=== PATIENT | male | born 1955 | race Caucasian/White ===

== ENCOUNTER 2017-10-24 14:52 | Emergency (ER) | payer MEDICARE, MEDICAID, SELFPAY ==
[2017-10-24 14:53] VITALS: BP 141/84; PULSE 106; RESP 33; TEMP 36.8; O2SAT 91; BMI 38.6
[2017-10-24 14:55] VITALS: BP 141/84; PULSE 105; RESP 26; O2SAT 92; O2SAT 93
--- NOTE | 2017-10-24 15:08 | EKG12_ITS ---
Test Reason : SOB Blood Pressure : / mmHG Vent. Rate : 100 BPM Atrial Rate : 100 BPM P-R Int : 148 ms QRS Dur : 098 ms QT Int : 346 ms P-R-T Axes : 063 079 054 degrees QTc Int : 446 ms Normal sinus rhythm Low voltage QRS (limb leads) Poor R wave progression Confirmed by CHARO VAZQUEZ, JOHANA ([id number]), mapping editor KALEB SWEENEY ([id number] on 10/26/2017 1:16:46 PM Referred By: JOEY Confirmed By:JOHANA MANCILLA MD
--- NOTE | 2017-10-24 15:08 | CT_ITS ---
STUDY: CT BRAIN WITHOUT CONTRAST REASON FOR EXAM: Male, 61 years old. Dizziness and weakness. Shortness of breath. RADIATION DOSAGE (If Supplied By Facility): CTDIvol = ( 44.99 ) mGy, DLP = ( 762.36 ) mGycm TECHNIQUE: Transaxial CT imaging of the brain was performed without administration of intravenous contrast material. Individualized dose optimization techniques were used for this CT. COMPARISON: March 08, 2016. FINDINGS: Normal soft tissue structures. Normal calvarium. Normal size ventricles and extra-axial spaces for the patient's age. Normal white matter tracts of the cerebral hemispheres. Normal basal ganglia and thalami. Normal brainstem. Normal cerebellum. There is no intracranial hemorrhage. There are no findings of an acute ischemic infarction. Normal visualized paranasal sinuses. CT/Brain/Head without Contrast IMPRESSION: Normal unenhanced CT scan of the brain. Electronically Signed: Pola Bullard MD at 16:17 EST , Service support ,
[2017-10-24 15:15] VITALS: PULSE 102; RESP 22; O2SAT 93
[2017-10-24] MEDS: Ipratropium/Albuterol Sulfate 3 ML AMPUL.NEB INHALATION (15:15)
--- NOTE | 2017-10-24 15:16 | ED.DCSUM_ITS ---
- ER Visit Summary Date of Service: 10/24/17 Chief Complaint: [Shortness of breath, dizziness, generalized weakness] History of Present Illness: The patient is a 61 M [presents to the emergency department with multiple complaints. Patient states that progressively over the last 2 weeks he has been getting weaker and weaker. Patient feels lightheaded with standing and walking. Patient also complains of dyspnea. Patient does use 4 L home O2 at all times. Patient has a history of COPD. Patient denies recent travel or surgery. Patient denies any chest pain. He denies any focal weakness. Patient denies any difficulty with speech or vision. He denies vertiginous symptoms. Patient states that he just feels off balance. Patient has noticed increased swelling in his legs. He has no history of CHF. Patient has no kidney problems. Patient does have a history of chronic back pain. She denies fever. He denies cough.] Physical Examination: HEENT-PERRLA, EOMI. Cranial nerves II through XII grossly intact. TMs clear. Mucous membranes moist. No adenopathy. Cardiovascular-regular rate and rhythm without murmur or ectopy Lungs-aeration bilaterally. Patient is tachypneic. No accessory muscle use or retraction noted. Patient has diminished breath sounds bilaterally with some faint expiratory wheezes noted. Abdomen-normoactive bowel sounds, soft, nontender, no rebound or rigidity, no peritoneal signs. Neuro [id number] and heel schmitz testing within normal limits, negative Romberg, no facial droop, normal strength in the upper and lower extremities. Extremities-intact ?4, normal range of motion, normal pulses, atraumatic] patient has +2 edema both lower extremities. Test Results: [TG obtained showed a sinus rhythm with a ventricular rate of 100 bpm with no acute ST segment changes noted.] CBC with differential showed a white count of 8.9, hemoglobin 15, hematocrit 47, platelets 211. Chemistries unremarkable. LFTs were normal. Urinalysis was normal. Troponin was less than 0.02. BNP was 17.5, d-dimer was normal at 0.30. Chest x-ray showed small left pleural effusion and some left basilar atelectasis cannot rule out an early infiltrate. CT scan of the brain without contrast was normal. Emergency Department Course and Treatment: [Patient initially was given a DuoNeb aerosol and a Medrol IV. Patient did feel somewhat improved with that. At this point he tells me his main concern was this generalized weakness and feeling off balance. Patient denies vertiginous symptoms and states that he does not have to hold onto furniture or laughlin when he is walking and thinks that it is more generalized weakness than off balance type feeling. I offered to admit the patient for further workup and evaluation of his symptomatology is at this point it is unclear the etiology of his generalized weakness. Patient does not want to be admitted and would prefer to go home. Patient also tells me he had flulike symptoms several days ago and was treated with Zithromax which she finished on the 18th of the month.] Patient tells me that his breathing is at baseline and not worse than usual. Patient tells me that his cough is been resolved and he has had no fever. Treatment Plan: [Follow-up with primary care physician in 3-5 days.] Disposition: [Discharged to home in stable condition.] Impression: [Generalized weakness-etiology uncertain Dyspnea] secondary to COPD-at baseline This note was generated with Likeeds dictation software. It may contain incorrect words, spelling, and punctuation that were not noted in review of the chart prior to signing ED Disposition - Plan for ED Patient: Chief Complaint: Shortness of Breath Referrals: Srinivasa Henao MD [Primary Care Provider] -
--- NOTE | 2017-10-24 15:24 | RAD_ITS ---
STUDY: X-RAY CHEST REASON FOR EXAM: Male, 61 years old. Shortness of breath. Dyspnea. TECHNIQUE: Single AP portable view of the chest. COMPARISON: Comparison is made with prior study dated January 30, 2014. FINDINGS: EKG electrode leads are seen. Increased interstitial markings worse at the lung bases. Small left pleural effusion with underlying infiltration and/or atelectasis. Normal size heart. Normal mediastinum and emmanuel. Normal visualized pulmonary arteries. There is atherosclerotic calcification of the aortic arch with tortuosity. Normal visualized thoracic spine. Normal visualized ribs, clavicles, and shoulders. There is no demonstrated abnormality of the visualized soft tissue structures of the upper abdomen. RAD/Chest 1 View (Portable) IMPRESSION: Findings suggestive of interstitial scarring with small left pleural effusion with underlying left basilar atelectasis and/or early infiltrate. Electronically Signed: True Miranda MD at 15:46 EST Tel [phone], Service support ,
[2017-10-24 15:34] LABS: Basophil# 0.01 X10^3/uL; Basophil% 0.1 % (0-1); Hematocrit 47.3 % (40-54); Hemoglobin 15.4 g/dl (13.0-16.5); Lymphocyte % 9.6 % (19-41); Mean Corp Hgb Conc 32.6 g/gl (32-36); Mean Corpuscular Hgb 31.2 pg (27.0-32.0); Mean Corpuscular Volume 95.9 fL (80-94); Mean Platelet Vol. 9.5 fl (6.2-12.0); Monocyte# 0.51 X10^3/uL; Monocyte% 6.1 % (0-10); Neutrophil # 7.04 X10^3/uL (2.7-7.7); Neutrophil % 84.1 % (47-70); POSITIVE COUNT NO; POSITIVE DIFFERENTIAL NO; POSITIVE MORPHOLOGY NO; Platelet Count 211 K/mm3 (150-450); RBC Distribution Width CV 13.7 % (11.6-14.6); RBC Distribution Width SD 48.6 fl (35.1-43.9); Red Blood Count 4.93 M/mm3 (4.6-6.2); White Blood Count 8.4 K/mm3 (4.4-11.0)
--- NOTE | 2017-10-24 15:34 | CPS ---
Pt states that he wears 4L home O2
[2017-10-24 16:09] LABS: ALB/GLOB Ratio 0.8 RATIO (0.9-2.4); AST(SGOT) 22 U/L (15-37); Alanine Aminotransfer ALT/SGPT 50 U/L (16-61); Albumin, Serum 3.1 g/dL (3.2-5.0); Alkaline Phosphatase 82 U/L (45-117); Anion Gap 4 (5-15); BUN 16 mg/dL (7-18); BUN/Creat Ratio 21.8 RATIO (10-20); Calcium,Total 8.2 mg/dL (8.5-10.1); Chloride 99 mmol/L (98-107); Creatinine, Serum 0.74 mg/dL (0.70-1.30); EST Glomerular Filtration Rate 115 mL/min (>60); Est Glom Filt Rate - Afr Amer 139 mL/min (>60); Estimated Creatinine Clearance 88.89 ml/min; Globulin 3.9 g/dL (2.2-4.2); Glucose 130 mg/dL (74-106); Potassium 4.3 mmol/L (3.5-5.1); Sodium Level 139 mmol/L (136-145)
[2017-10-24 16:14] LABS: BNP,B-Type NATRIURETIC PEPTIDE 17.5 pg/mL (0-100)
--- NOTE | 2017-10-24 16:19 | NURSING ---
NO LW OR POA
[2017-10-24] MEDS: MethylPREDNISolone 125 MG/2 ML Vial IV (16:26)
[2017-10-24 16:27] VITALS: BP 133/87; BP 134/84; BP 136/92; PULSE 100; PULSE 101; PULSE 102; PULSE 106; RESP 20; O2SAT 93
[2017-10-24 16:38] LABS: Bacteria 0 SEEN /hpf (None Seen); Mucous, Urine 0 SEEN /hpf (<or=2+); White Blood Cells 0 SEEN /hpf (0-5)
[2017-10-24 16:53] LABS: Color, Urine Yellow (Yellow); Glucose, Dipstick Normal (Normal); Ketone-Dipstick Negative (Negative); Leukocyte Esterase-Dipstick Negative /ul (Negative); Nitrite-Dipstick Negative (Negative); Occult Blood-Urine Negative /ul (Negative); Protein-Dipstick Negative (Negative); Urine Bilirubin Dipstick Negative (Negative); Urine Clarity Clear (Clear); Urine Urobilinogen Normal (Normal)
[2017-10-24 17:02] LABS: Red Blood Cells-Urine 0-5 SEEN /hpf (0-5); Squamous Epithelial Cells - UA 0-5 SEEN /hpf (0-5)
--- NOTE | 2017-10-24 17:14 | ED.DEP ---
ED Disposition - Plan for ED Patient: Chief Complaint: Shortness of Breath Instructions: ED Weakness UKO, ED Dyspnea Shortness of Breath Referrals: Srinivasa Henao MD [Primary Care Provider] - 3-5 Days
[2017-10-24 17:38] VITALS: BP 128/74; PULSE 80; RESP 16; O2SAT 96
== END 2017-10-24 17:40 | disposition home or self-care (01) ==
PROVIDERS: Emergency Provider Emergency Medicine; Family Provider Internal Medicine; PCP Internal Medicine
DX: M62.81 Muscle weakness (generalized) (principal); J44.9 Chronic obstructive pulmonary disease, unspecified; R06.00 Dyspnea, unspecified; Z99.81 Dependence on supplemental oxygen; M54.9 Dorsalgia, unspecified; G89.29 Other chronic pain; Z72.0 Tobacco use; Z79.82 Long term (current) use of aspirin; Z79.51 Long term (current) use of inhaled steroids; Z79.891 Long term (current) use of opiate analgesic; Z79.899 Other long term (current) drug therapy
CPT/HCPCS: 70450; 71045; 80053; 81001; 83880; 84484; 85025; 85379; 93005; 94640; 96374; 99285; A4216

== ENCOUNTER 2017-11-04 14:12 | Emergency (ER) | payer MEDICARE, MEDICAID, SELFPAY ==
[2017-11-04 14:13] VITALS: BP 138/93; PULSE 110; RESP 18; TEMP 36.4; O2SAT 92; BMI 37.8
[2017-11-04] MEDS: Ipratropium/Albuterol Sulfate 3 ML AMPUL.NEB INHALATION (14:55)
[2017-11-04 14:56] VITALS: PULSE 114; RESP 22
[2017-11-04 14:59] LABS: Absolute Lymphocyte Count 1.67 X10^3/ul (0.83-4.51); Absolute Neutrophil Count 7.4 X10^3/uL (2.0-7.7); Basophil# 0.03 X10^3/uL; Basophil% 0.3 % (0-1); Eosinophil# 0.11 X10^3/uL; Eosinophils% 1.1 % (0-5); Hematocrit 44.4 % (40-54); Hemoglobin 14.5 g/dl (13.0-16.5); Lymphocyte # 1.67 X10^3/ul (4.0); Lymphocyte % 16.2 % (19-41); Mean Corp Hgb Conc 32.7 g/gl (32-36); Mean Corpuscular Hgb 31.4 pg (27.0-32.0); Mean Corpuscular Volume 96.1 fL (80-94); Mean Platelet Vol. 9.4 fl (6.2-12.0); Monocyte# 1.07 X10^3/uL; Monocyte% 10.4 % (0-10); Neutrophil # 7.43 X10^3/uL (2.7-7.7); Neutrophil % 71.9 % (47-70); POSITIVE COUNT NO; POSITIVE DIFFERENTIAL NO; POSITIVE MORPHOLOGY NO; Platelet Count 202 K/mm3 (150-450); RBC Distribution Width CV 13.9 % (11.6-14.6); RBC Distribution Width SD 47.8 fl (35.1-43.9); Red Blood Count 4.62 M/mm3 (4.6-6.2); White Blood Count 10.3 K/mm3 (4.4-11.0)
[2017-11-04 15:11] LABS: Anion Gap 3 (5-15); BUN 11 mg/dL (7-18); BUN/Creat Ratio 16.3 RATIO (10-20); Calcium,Total 8.2 mg/dL (8.5-10.1); Chloride 102 mmol/L (98-107); Creatinine, Serum 0.67 mg/dL (0.70-1.30); EST Glomerular Filtration Rate 127 mL/min (>60); Est Glom Filt Rate - Afr Amer 154 mL/min (>60); Estimated Creatinine Clearance 98.18 ml/min; Glucose 111 mg/dL (74-106); Potassium 4.1 mmol/L (3.5-5.1); Sodium Level 141 mmol/L (136-145)
[2017-11-04 15:23] LABS: Bacteria 0 SEEN /hpf (None Seen); Mucous, Urine 0 SEEN /hpf (<or=2+); Red Blood Cells-Urine 0 SEEN /hpf (0-5); Squamous Epithelial Cells - UA 0 SEEN /hpf (0-5); White Blood Cells 0 SEEN /hpf (0-5)
[2017-11-04 15:30] LABS: Color, Urine Yellow (Yellow); Glucose, Dipstick Normal (Normal); Ketone-Dipstick Negative (Negative); Leukocyte Esterase-Dipstick 25 /ul (Negative); Nitrite-Dipstick Negative (Negative); Occult Blood-Urine Negative /ul (Negative); Protein-Dipstick Negative (Negative); Urine Bilirubin Dipstick Negative (Negative); Urine Clarity Clear (Clear); Urine Urobilinogen Normal (Normal)
--- NOTE | 2017-11-04 16:20 | ED.VISSUMM ---
- ER Visit Summary Date of Service: 11/04/17 Chief Complaint: Difficulty urinating History of Present Illness: The patient is a [address] Henao. He reports that for the past 4 days he feels as though he has to urinate and then just trickles. Reports that he has a little bit of dysuria. He does have a history of BPH, but has never had anything like this. Physical Examination: Vitals: Stable. Afebrile. General: Well-nourished and well-developed. Head: Normocephalic atraumatic. Neck: Supple, no lymphadenopathy. No JVD. Nontender. Cardiovascular: Regular rate and rhythm. No murmurs. Respiratory: No respiratory distress. The decreased air movement. Abdominal: Soft, mild suprapubic tenderness to palpation, nondistended, normal bowel sounds. No guarding, rebound, or peritoneal signs. Back: Nontender. Extremities: Nontender, no edema. Skin: Normal color, no rash. Neurologic: Alert and oriented ?3. Cranial nerves II through XII are intact. Normal strength and sensation. Psych: Normal affect. Test Results: CBC is remarkable for segment neutrophils of 72 and lymphocytes of 16. Chem-7 is more for CO2 36, glucose 111, calcium 8.2, creatinine 0.67. UA is normal. Bladder scan shows 39 cc of urine. Emergency Department Course and Treatment: I had a prolonged discussion the patient about treatment options. We also discussed possibility of a false negative bladder scan. He opted to have a Zuleta catheter placed. 100 cc of urine returned. The Zuleta catheter was removed. Treatment Plan: Patient will be discharged instructions follow-up with Dr. Reyes in 3-5 days for further evaluation. Return to the emergency department for any worsening symptoms. Disposition: To home in improved and stable condition. Impression: 1. Urethritis. This note was generated with Free[employer]Alert[employer] dictation software. It may contain incorrect words, spelling, and punctuation that were not noted in review of the chart prior to signing ED Disposition - Plan for ED Patient: Chief Complaint: Complaint Instructions: ED Dysuria Uncertain Cause Referrals: Tarik Reyes MD [STAFF PHYSICIAN] - 3-5 Days
[2017-11-04 16:26] VITALS: BP 132/90; PULSE 95; RESP 22; O2SAT 93
[2017-11-04 17:01] VITALS: BP 132/90; PULSE 95; RESP 22; O2SAT 93
== END 2017-11-04 17:07 | disposition home or self-care (01) ==
LOC: ED 15:29
PROVIDERS: Emergency Provider Emergency Medicine; Family Provider Internal Medicine; PCP Internal Medicine
DX: N34.2 Other urethritis (principal); J44.9 Chronic obstructive pulmonary disease, unspecified; Z72.0 Tobacco use
CPT/HCPCS: 51702; 80048; 81001; 85025; 94640; 99284; A4216

== ENCOUNTER → 2017-12-31 16:01 | Outpatient (CLI) | payer MEDICARE, MEDICAID, SELFPAY | PROVIDERS: Family Provider Internal Medicine; PCP Internal Medicine; Visit Provider Otolaryngology Otolaryngology/Facial Plastic Surgery | DX: J32.9 Chronic sinusitis, unspecified (principal) | CPT/HCPCS: 87070; 87205 ==

== ENCOUNTER 2018-05-04 21:17 | Inpatient (IN) | payer MEDICARE, MEDICAID, SELFPAY ==
[2018-05-04 21:19] VITALS: BP 121/77; PULSE 105; PULSE 107; RESP 21; RESP 25; TEMP 38.1; O2SAT 90; O2SAT 91; BMI 40.6
[2018-05-04 21:25] VITALS: O2SAT 92
[2018-05-04 21:57] VITALS: PULSE 112; RESP 26; O2SAT 92
[2018-05-04] MEDS: Albuterol 2.5 MG/3 ML VIAL.NEB. INHALATION ×3 (21:57)
[2018-05-04] MEDS: MethylPREDNISolone 125 MG/2 ML Vial IV (22:07)
[2018-05-04] MEDS: 0.9% Normal Saline 1,000 ML 150 ML IV (22:07)
[2018-05-04] MEDS: levoFLOXacin IV 750 MG/150 ML BAG 100 MG IV (22:08)
[2018-05-04 22:15] LABS: Absolute Lymphocyte Count 1.58 X10^3/ul (0.83-4.51); Absolute Neutrophil Count 16.1 X10^3/uL (2.0-7.7); Basophil# 0.03 X10^3/uL; Basophil% 0.2 % (0-1); Eosinophil# 0.04 X10^3/uL; Eosinophils% 0.2 % (0-5); Hematocrit 46.3 % (40-54); Hemoglobin 15.2 g/dl (13.0-16.5); Lymphocyte # 1.58 X10^3/ul (4.0); Lymphocyte % 8.1 % (19-41); Mean Corp Hgb Conc 32.8 g/gl (32-36); Mean Corpuscular Hgb 31.1 pg (27.0-32.0); Mean Corpuscular Volume 94.9 fL (80-94); Mean Platelet Vol. 9.4 fl (6.2-12.0); Monocyte# 1.71 X10^3/uL; Monocyte% 8.8 % (0-10); Neutrophil # 16.14 X10^3/uL (2.7-7.7); Neutrophil % 82.6 % (47-70); Platelet Count 204 K/mm3 (150-450); RBC Distribution Width CV 13.9 % (11.6-14.6); RBC Distribution Width SD 48.1 fl (35.1-43.9); Red Blood Count 4.88 M/mm3 (4.6-6.2); White Blood Count 19.5 K/mm3 (4.4-11.0)
[2018-05-04 22:17] LABS: Differential Indicated SCAN CRITERIA MET; POSITIVE COUNT NO; POSITIVE DIFFERENTIAL YES; POSITIVE MORPHOLOGY NO
[2018-05-04 22:29] LABS: ALB/GLOB Ratio 0.9 RATIO (0.9-2.4); AST(SGOT) 15 U/L (15-37); Alanine Aminotransfer ALT/SGPT 23 U/L (16-61); Albumin, Serum 3.6 g/dL (3.2-5.0); Alkaline Phosphatase 73 U/L (45-117); Anion Gap 7 (5-15); BUN 12 mg/dL (7-18); BUN/Creat Ratio 14.9 RATIO (10-20); Calcium,Total 8.9 mg/dL (8.5-10.1); Chloride 101 mmol/L (98-107); EST Glomerular Filtration Rate 104 mL/min (>60); Est Glom Filt Rate - Afr Amer 126 mL/min (>60); Estimated Creatinine Clearance 78.04 ml/min; Globulin 3.9 g/dL (2.2-4.2); Glucose 107 mg/dL (74-106); Potassium 3.9 mmol/L (3.5-5.1); Protein, Total 7.5 g/dL (6.4-8.2); Sodium Level 142 mmol/L (136-145)
[2018-05-04 22:44] LABS: Differential Comment SCANNED; Platelet Estimate ADEQUATE (ADEQ); Reactive Lymphocyte RARE
[2018-05-04 22:48] LABS: Lactic Acid 0.8 mmol/L (0.4-2.0)
[2018-05-04 23:17] VITALS: BP 116/77; PULSE 108; RESP 22; O2SAT 94
--- NOTE | 2018-05-04 23:23 | ED.VISSUMM ---
- ER Visit Summary Date of Service: 05/04/18 Chief Complaint: Fever, increased shortness of breath and cough History of Present Illness: The patient is a 62 M who presents with shortness of breath, fever and cough. He had similar presentation earlier this year was diagnosed with pneumonia. He states he was discharged on oxygen and has required oxygen since. He states he is on 4-5 L of oxygen by nasal cannula. Does have history of obstructive sleep apnea and uses his machine at night. confirms compliance. He denies headache, visual, ocular auditory symptoms. He denies abdominal pain, nausea, vomiting diarrhea. He denies any urologic symptoms. Denies myalgias arthralgias. He complains of fatigue and generalized weakness. Past medical history COPD on oxygen, benign prostatic hypertrophy and chronic pain Physical Examination: Blood pressure 120/77 temperature 100.6 heart rate 123 respirations 25 with an O2 saturation 91% on 5 L. He appears in distress with use of accessory muscles. He has a cushingoid appearance. Eyes are proptotic. Pupils are equal round reactive paradoxic muscle intact. TMs normal. Posterior pharynx without erythema XA. Patient has inspiratory rales and expiratory wheezing with increased x-ray phase. Heart is rapid and regular. Abdomen is prominent with no tenderness. Bowel sounds are present normal. He does have bilateral 2-3+ pitting edema. He states this is been a problem since October. He denies orthopnea or PND. Neuro exam is nonfocal. Test Results: EKG sinus rhythm rate of 101 with an incomplete right bundle branch block and decreased anterior force. Chest x-ray reveals chronic changes with enlarging left pleural effusion and increased interstitial markings on right compared to prior suggestive of pneumonia. White count is 19.5 thousand with 83 segs no bands 8 lymphs. BMP is remarkable CO2 34. He has chronic elevation of CO2. Liver profile normal. Lactate normal. Emergency Department Course and Treatment: To evaluate patient's fever, respiratory distress chest x-ray, EKG and appropriate blood work was obtained. He was treated with albuterol ?3. He administered a DuoNeb 2 hours prior to presentation. He also received 125 mg of Solu-Medrol and 7 mg levofloxacin. Because of concern for severe sepsis blood cultures were obtained. Treatment Plan: Antibiotics, systemic steroids and aerosols for exacerbation COPD and pneumonia. Since patient is tachycardic remains tachypnic and is wheezing throughout will page the hospitalist, Dr. Cinthya Wilson for admission Disposition: PCU Impression: 1. Right lower lobe infiltrate, clinical pneumonia 2. Exacerbation COPD with bronchospasm 3. Sepsis This note was generated with Bringme dictation software. It may contain incorrect words, spelling, and punctuation that were not noted in review of the chart prior to signing ED Disposition - Plan for ED Patient: Chief Complaint: Shortness of Breath Referrals: Srinivasa Henao MD [Primary Care Provider] -
--- NOTE | 2018-05-04 23:30 | PCM.HP.STD ---
Problem List (1) Sepsis Status: Acute Qualifiers: Sepsis type: sepsis due to unspecified organism Qualified Code(s): A41.9 - Sepsis, unspecified organism (2) Acute and chronic respiratory failure with hypoxia Status: Acute (3) COPD exacerbation Status: Acute (4) Pneumonia Status: Acute Qualifiers: Pneumonia type: due to unspecified organism Laterality: right Lung location: lower lobe of lung Qualified Code(s): J18.1 - Lobar pneumonia, unspecified organism (5) KARIN (obstructive sleep apnea) Status: Chronic (6) Morbid obesity due to excess calories Status: Chronic (7) Chronic back pain Status: Chronic Qualifiers: Back pain location: back pain in unspecified location Back pain laterality: unspecified Qualified Code(s): M54.9 - Dorsalgia, unspecified; G89.29 - Other chronic pain (8) Anxiety and depression Status: Chronic (9) Allergic rhinitis Status: Chronic Qualifiers: Allergic rhinitis trigger: unspecified Allergic rhinitis seasonality: unspecified Qualified Code(s): J30.9 - Allergic rhinitis, unspecified History of Present Illness Date of Admission: 05/04/18 Chief Complaint: Shortness of breath, fever The patient is a 62 y/o M w/ PMHc: Chronic COPD w/ Chronic Hypoxic Respiratory Failure (4-5L NC), BPH, Anxiety and Depression, Morbid Obesity, KARIN, Chronic Back Pain who presents to the [facility] ED on 05/04/18 with history of onset fever, chills, increased dyspnea, usage of accessory muscles starting on day of ED presentation with non-productive coughing. He notes following w/ [employer] in [place] who is retiring. He notes he has been tested for KARIN and uses CPAP. He may have possibly been set-up recently for trilogy but not best historian. In the ED work-up included T100.6, heart rate 105, BP 121/77, respiratory rate 25, 91% on 4 L nasal cannula, CBC with W BC 19.5, hemoglobin 15.2, platelet 204 with left shift, BMP remarkable for carbon dioxide 34, glucose 107, lactic acid 0.8, chest x-ray with chronic interstitial changes possibly right lower lobe pneumonia, left pleural thickening or tiny effusion with mild basilar atelectasis. In the ED patient to start Solu-Medrol, Levaquin, albuterol, normal saline. Past Medical History Past Medical History (Chronic Problems): Chronic Problems KARIN (obstructive sleep apnea) (Chronic) Morbid obesity due to excess calories (Chronic) Chronic back pain (Chronic) Anxiety and depression (Chronic) Allergic rhinitis (Chronic) Allergies No Known Allergies Allergy (Verified 05/04/18 21:17) Home Medications: Ambulatory Orders Medication Instructions Recorded Baclofen [Lioresal] 20 mg PO BID 01/30/14 Budesonide/Formoterol 160/4.5 2 puff INHALATION BID 01/30/14 [Symbicort 160/4.5 Mcg Inhaler (SP)] Ipratropium/Albuterol Respimat 1 puff INHALATION 4X/DAY 01/30/14 [Combivent Respimat Inhal [employer]] Lorazepam [Ativan] 0.5 mg PO BID PRN PRN 01/30/14 Oxycodone HCl/Acetaminophen 1 tablet PO 4X/DAY PRN 01/30/14 [Percocet 5/325] Aspirin [Aspirin, Baby] 81 mg PO DAILY@0800 10/24/17 Benzonatate [Tessalon Perle] 100 mg PO 4X/DAY PRN PRN 10/24/17 Citalopram [Celexa] 40 mg PO DAILY 10/24/17 Montelukast [Singulair] 10 mg PO DAILY 10/24/17 Roflumilast [Daliresp] 500 mcg PO DAILY 10/24/17 Tamsulosin HCl [Flomax] 0.4 mg PO BID 10/24/17 Surgical History: - - Vasectomy, right carpal tunnel surgery ?2, umbilical hernia repair ?2. Psychiatric History: Anxiety, Depression Lives: Alone Smoking Status: Current some day smoker - Patient smoked probably 1/2-2 pack per day for several years but over the last several has cut down and only smokes intimately, notes only when stressed and 2-5 cigarettes per day. 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 Drugs: None - *Family History Maternal History Items: Cancer Paternal History Items: Cancer Review of Systems Constitutional: Reports: Chills, Fever, Malaise, Weakness, Fatigue. Denies: Weight Change HEENT: Denies: Head Aches, Sinus Congestion, Sinus Drainage Cardiovascular: Denies: Chest Pain, Palpitations Respiratory: Reports: Cough, Shortness of Breath, Shortness of breath at rest, Shortness of breath upon exertion, Wheezing. Denies: Sputum production Gastrointestinal: Denies: Abdominal Pain, Nausea, Vomiting Genitourinary: Denies: Dysuria Musculoskeletal: Reports: Back Pain. Denies: Joint Pain, Joint Tenderness Skin: Denies: Rash, Wounds Neurological: Denies: Numbness, Tingling, Focal weakness Psychiatric: Reports: Anxiety, Depression. Denies: Homicidal Ideations, Suicidal Ideations Hematologic/ Lymphatic: Denies: Easy Bruising, Easy Bleeding VTE Information - Inpt Only VTE Present on Admission: No VTE Mechan Device Prophylaxis: SCD's VTE Pharm Prophylaxis ordered?: Yes Patient Problems: Active and Suspected Problems Sepsis (Acute) Acute and chronic respiratory failure with hypoxia (Acute) COPD exacerbation (Acute) Pneumonia (Acute) Subjective: Seated upright in the ED chair, increased work of breathing, accessory muscle usage, increased RR evidence still despite treatments. Objective: Physical Examination: General: awake, alert, oriented x 3 and cooperative, seated upright in the ED chair, increased work of breathing, accessory muscle usage, increased RR. Skin: normal color, turgor, no icterus, cyanosis. HEENT: AT/NC, EOMI, PERRLA, MMM, no carotid bruits or JVD noted. Lungs: Severely diffusely diminished BS, > bases, increased work of breathing, accessory muscle usage, increased RR, no rales, ronchi or wheezing. Heart: Tachycardic with regular rhythm; no gallop, rub audible. Abdomen: soft, morbidly obese, NTTP, ND, normal BS, no HSM; however, habitus makes examination difficult Extremities: no cyanosis, clubbing, BL LE ankle to distal schmitz 2-3+ pitting edema, notes chronic. Neurological: patient awake, alert, oriented x 3; cognitive function intact; pupils equally reactive to light and accomodation; cranial nerves II-XII grossly normal, moving all 4 extremities, no focal deficits, strength severely globally decreased secondary to acute presentation. Psychiatric: affect appears normal, no acute evidence of depressive or anxiety feelings. - Physical Exam Vital Signs Temp Pulse Resp BP Pulse Ox 100.6 F H 112 H 26 H 121/77 H 92 05/04/18 21:19 05/04/18 21:57 05/04/18 21:57 05/04/18 21:19 05/04/18 21:57 Oxygen Flow Rate (L/min) 4 Oxygen Delivery Method Nasal Cannula Weight: 229 lb 4.492 oz Body Mass Index (BMI) 40.6 Laboratory Tests Past 24 Hrs 05/04/18 05/04/18 05/04/18 21:58 21:58 21:58 WBC 19.5 H RBC 4.88 Hgb 15.2 Hct 46.3 MCV 94.9 H MCH 31.1 MCHC 32.8 RDW 13.9 RDW Differential 48.1 H Plt Count 204 MPV 9.4 Immature Gran % (Auto) 0.100 Neut % (Auto) 82.6 H Lymph % (Auto) 8.1 L [place] % (Auto) 8.8 Eos % (Auto) 0.2 Baso % (Auto) 0.2 Absolute Neuts (auto) 16.1 H Absolute Lymphs (auto) 1.58 Total Counted Not Reportable Differential Comment SCANNED Diff Path Review May foll Reactive Lymphocytes RARE Platelet Estimate ADEQUATE Sodium 142 Potassium 3.9 Chloride 101 Carbon Dioxide 34.0 H Anion Gap 7 BUN 12 Creatinine 0.80 Estim Creat Clear Calc 78.04 Est GFR (MDRD) Af Amer 126 Est GFR (MDRD) Non-Af 104 BUN/Creatinine Ratio 14.9 Glucose 107 H Lactic Acid 0.8 Calcium 8.9 Total Bilirubin 0.60 AST 15 ALT 23 Alkaline Phosphatase 73 Total Protein 7.5 Albumin 3.6 Globulin 3.9 Albumin/Globulin Ratio 0.9 Assessment/Plan All Active Problems Sepsis (Acute) Acute and chronic respiratory failure with hypoxia (Acute) COPD exacerbation (Acute) Pneumonia (Acute) The patient is a 62 y/o M w/ PMHc: Chronic COPD w/ Chronic Hypoxic Respiratory Failure (4-5L NC), BPH, Anxiety and Depression, Morbid Obesity, KARIN, Chronic Back Pain who presents to the [facility] ED on 05/04/18 with history of onset fever, chills, increased dyspnea, usage of accessory muscles starting on day of ED presentation with non-productive coughing. (1) Acute Sepsis secondary to Acute Hypoxic Respiratory Failure on Chronic secondary to Acute on Chronic COPD Exacerbation and Pneumonia: Increased work of breathing, accessory muscle usage, increased RR. ABG requested. ED work-up included T100.6, heart rate 105, BP 121/77, respiratory rate 25, 91% on 4 L nasal cannula, CBC with W BC 19.5, hemoglobin 15.2, platelet 204 with left shift, BMP remarkable for carbon dioxide 34, glucose 107, lactic acid 0.8, chest x-ray with chronic interstitial changes possibly right lower lobe pneumonia, left pleural thickening or tiny effusion with mild basilar atelectasis. Will admit to PCU, maintain on oxygen with wean as tolerated to home oxygen supplementation, continue ATC duonebs, PRN albuterol, maintain on IV Rocephin and Azithromycin, maintain on solumedrol, HOB, IS parameters w/ pending sputum cultures and urine antigens as well as respiratory viral panel. Bld cx x 2 obtained in the ED. (2) Chronic Back Pain: Encourage frequent position changes, continue home baclofen and percocet regimen. (3) Anxiety and Depression: Continue home celexa and ativan regimen. (4) Morbid Obesity: Weight loss and lifestyle changes encouraged, nutrition consulted. (5) Allergic Rhinitis: Continue home Singulair regimen. (6) KARIN: CPAP q HS if BIPAP not indicated with pending ABG as noted. (7) BPH: Continue home flomax regimen. (8) BL LE Chronic Edema: Notes chronic, does improve mildly with elevation and in AM following rest in bed. Place SNUG starr wraps. (9) DVT Prophylaxis: SCDs, lovenox. Code Visit Inpatient E&M: [id number] Init Hosp L3
--- NOTE | 2018-05-04 23:59 | NURSING ---
Called [facility] ED charge nurseshayla to send patient to the floor.
[2018-05-05] VITALS (26 sets, daily range): BP systolic 113–140; BP diastolic 63–84; PULSE 62–108; RESP 12–26; TEMP 36.8–36.9; O2SAT 90–95; BMI 40.2; BMI 40.3
--- NOTE | 2018-05-05 00:10 | CPS ---
ABG DRAWN PER DR SHEN REQUEST. RESULTS CALLED TO HER. VERBAL ORDER RECEIVED TO PLACE PT ON BIPAP FOR THE NIGHT. OKAY TO TITRATE SETTINGS NEEDED AND TO MAINTAIN SPO2 88-92%. PER PT HE USUALLY WEARS CPAP HS WITH 4L BLED IN AND HE ALSO WEARS 4L OXYGEN DURING THE DAY.
[2018-05-05 00:11] LABS: Allen Test POS; Base Excess 6 mmol/L (-2 to +2); Bicarbonate 31.2 mmol/L (22-26); Blood Gas Specimen Type ART; O2 Delivery Device Nasal Can; PO2 55 mmHG (75-100); SITE L Radial; SO2 88 % (95-99); Time Given 10; Total Carbon Dioxide 33 mmol/L; pCO2 50.7 mmHg (35-45)
[2018-05-05] MEDS: 0.9% Normal Saline 1,000 ML 125 ML IV ×2 (00:57→06:23)
[2018-05-05] MEDS: Enoxaparin 40 MG/0.4 ML Syringe SC ×2 (01:12→09:29)
[2018-05-05] MEDS: oxyCODONE 5 MG Tablet PO ×3 (01:12→21:26)
[2018-05-05] MEDS: LORazepam 0.5 MG Tablet PO ×3 (01:12→21:31)
[2018-05-05] MEDS: Ipratropium/Albuterol Sulfate 3 ML AMPUL.NEB INHALATION ×5 (01:22→22:34)
--- NOTE | 2018-05-05 03:00 | NURSING ---
Patient has refused twice starr wraps but allowed SCDS to be put on as well as lovenox injection. Will continue to express importance to patient.
[2018-05-05] MEDS: Aspirin 81 MG TAB.CHEW PO (09:29)
[2018-05-05] MEDS: Baclofen 10 MG Tablet 20 MG PO ×2 (09:29→21:25)
[2018-05-05] MEDS: Tamsulosin HCl 0.4 MG Capsule PO ×2 (09:29→21:25)
[2018-05-05] MEDS: guaiFENesin 1,200 MG Tablet 1200 MG PO ×2 (09:29→21:25)
[2018-05-05] MEDS: Famotidine 20 MG Tablet PO ×2 (09:29→21:25)
[2018-05-05] MEDS: Montelukast 10 MG Tablet PO (09:30)
[2018-05-05] MEDS: Citalopram 40 MG TABLET PO (09:30)
[2018-05-05] MEDS: ROFLUMILAST 500 MCG TABLET PO (09:42)
[2018-05-05] MEDS: 0.9% NaCl Peripheral Flush Adult/Peds IV ×2 (14:24→21:25)
[2018-05-05] MEDS: Acetaminophen 325 MG Tablet 650 MG PO (14:30)
--- NOTE | 2018-05-05 15:32 | PCM.PN.HOSP ---
Patient Problems: Active and Suspected Problems Sepsis (Acute) Acute and chronic respiratory failure with hypoxia (Acute) COPD exacerbation (Acute) Pneumonia (Acute) Subjective: f/u for COPD exacerbation Patient seen and examined Still very SOB and hard to breath Vitals/I&O's: Vital Signs Temp Pulse Resp BP Pulse Ox 98.4 F 90 18 113/70 95 05/05/18 14:31 05/05/18 14:31 05/05/18 14:31 05/05/18 14:31 05/05/18 14:31 Oxygen Flow Rate (L/min) 5 Oxygen Delivery Method Nasal Cannula Weight: 103.1 kg Body Mass Index (BMI) 40.2 Intake and Output for Last 24 Hours 05/03/18 05/04/18 05/05/18 23:59 23:59 23:59 Intake Total 1721 / 1721 Output Total 950 / 950 Balance 771 / 771 General: Alert, Oriented x3, Cooperative, - - acutely ill looking and in respiratory distress and using accessory muscles of respiration to breath HEENT: Atraumatic Oral: Dry Mucosa Neck: Supple, No JVD Lungs: Diminished, Rhonchi, Short of Breath, Tachypneic, Using Accessory Muscles, Wheezes Cardiovascular: Regular rate, Regular Rhythm, Normal S1, Normal S2, No murmurs, - - distant heart sounds Abdomen: Obese, - - MWR Extremities: No cyanosis, No edema Skin: No rashes Musculoskeletal: No Muscle Wasting Neurological: Cranial nerves II-XII grossly intact, Neuro grossly intact Psych/Mental Status: Normal Affect, Appropriate, Anxious, Restless, Alert and oriented to time, place, person, mood and affect Microbiology Past 72 Hours 05/05/18 01:35 Mucosa - Nose Respiratory Panel (PCR) - Final 05/05/18 01:16 Urine, Clean Catch Streptococcus pneumoniae Antigen (M - Final 05/05/18 01:16 Urine, Clean Catch Legionella Antigen - Final Laboratory Results 05/05/18 00:07: Specimen Type ART, Sample Site L Radial, pH 7.40, Bicarbonate Actual 31.2 H, POC Total CO2 33, Base Excess 6 H, O2 Saturation 88 L, ABG pCO2 50.7 H, ABG pO2 55 L, Jim Test POS, O2 Delivery Device Nasal Can, Liter Flow 5.0, Blood Gas Notified Whom HOSP , Blood Gas Notified Time 10 Current Medications Acetaminophen (Tylenol) 650 mg PO Q6H PRN PRN PRN Reason: Mild Pain (scale 0-3)/T>100.7 Last Admin: 05/05/18 14:30 Dose: 650 mg Al Hydroxide/Mg Hydroxide (Mylanta Ii) 30 ml PO Q6H PRN PRN PRN Reason: Gastric burning Albuterol Sulfate (Ventolin Aerosols) 2.5 mg INHALATION Q2H PRN PRN PRN Reason: SHORTNESS OF BREATH Albuterol/Ipratropium (Duoneb) 3 ml INHALATION Q4H.RT [facility] Last Admin: 05/05/18 15:02 Dose: Not Given Aspirin (Aspirin, Baby) 81 mg PO DAILY@0800 [facility] Last Admin: 05/05/18 09:29 Dose: 81 mg Baclofen (Lioresal) 20 mg PO BID [facility] Last Admin: 05/05/18 09:29 Dose: 20 mg Citalopram Hydrobromide (Celexa) 40 mg PO DAILY [facility] Last Admin: 05/05/18 09:30 Dose: 40 mg Enoxaparin Sodium (Lovenox) 40 mg SC DAILY [facility] Last Admin: 05/05/18 09:29 Dose: 40 mg Famotidine (Pepcid) 20 mg PO BID [facility] Last Admin: 05/05/18 09:29 Dose: 20 mg Guaifenesin (Mucinex) 1,200 mg PO BID [facility] Last Admin: 05/05/18 09:29 Dose: 1,200 mg Azithromycin 500 mg/ Dextrose 255 mls @ 250 mls/hr IV Q24 [facility] Stop: 05/07/18 11:02 Last Admin: 05/05/18 09:42 Dose: 250 mls/hr Ceftriaxone Sodium 2 gm/ (Dextrose) 50 mls @ 100 mls/hr IV Q24 [facility] Last Admin: 05/05/18 11:55 Dose: 100 mls/hr Lorazepam (Ativan) 0.5 mg PO BID PRN PRN PRN Reason: ANXIETY Last Admin: 05/05/18 01:31 Dose: 0.5 mg Magnesium Hydroxide (Milk Of Magnesia) 30 ml PO DAILY PRN PRN Reason: Constipation Methylprednisolone (Solu-Medrol) 40 mg IV Q8 [facility] Last Admin: 05/05/18 14:24 Dose: 40 mg Montelukast Sodium (Singulair) 10 mg PO DAILY [facility] Last Admin: 05/05/18 09:30 Dose: 10 mg Ondansetron HCl (Zofran) 4 mg IV Q8H PRN PRN PRN Reason: NAUSEA Oxycodone HCl (Oxyir) 5 mg PO Q6H PRN PRN PRN Reason: PAIN Last Admin: 05/05/18 14:20 Dose: 5 mg Promethazine HCl (Phenergan) 12.5 mg IV Q6H PRN PRN PRN Reason: NAUSEA/VOMITING Sodium Chloride () 5 - 30 ml IV UD PRN PRN Reason: SALINE FLUSH Last Admin: 05/05/18 14:24 Dose: 10 ml Tamsulosin HCl (Flomax) 0.4 mg PO BID [facility] Last Admin: 05/05/18 09:29 Dose: 0.4 mg Medical Necessity - Tobacco Use Smoking Status: Current some day smoker Tobacco Use: Cigarettes Assessment/Plan All Active Problems Sepsis (Acute) Acute and chronic respiratory failure with hypoxia (Acute) COPD exacerbation (Acute) Pneumonia (Acute) 1. Acute COPD exacerbation. Continue with breathing treatments. Steroids, mucolytics and IV abx added too. 2. Possible pneumonia. Unconvincing on CXR. On IV abx anyway 3. Morbid obesity. Will need to emphasize lifestyle modifications 4. KARIN. Continue CPAP on home settings 5. Chronic hypoxic respiratory failure. On home O2. Continue here Code Visit Inpatient E&M: 97469 [facility] Hosp L3
[2018-05-06] VITALS (19 sets, daily range): BP systolic 130–143; BP diastolic 77–90; PULSE 58–107; RESP 12–24; TEMP 36.7–36.9; O2SAT 88–96
[2018-05-06] MEDS: 0.9% NaCl Peripheral Flush Adult/Peds IV ×3 (05:37→21:02)
[2018-05-06] MEDS: Ipratropium/Albuterol Sulfate 3 ML AMPUL.NEB INHALATION ×5 (06:59→22:30)
--- NOTE | 2018-05-06 08:25 | CPS ---
PEP therapy not done, patient on bipap.
--- NOTE | 2018-05-06 08:26 | CPS ---
Increased FiO2 to 40%.
[2018-05-06] MEDS: Aspirin 81 MG TAB.CHEW PO (08:45)
[2018-05-06 10:10] LABS: Absolute Lymphocyte Count 0.79 X10^3/ul (0.83-4.51); Absolute Neutrophil Count 17.4 X10^3/uL (2.0-7.7); Hemoglobin 14.7 g/dl (13.0-16.5); Lymphocyte # 0.79 X10^3/ul (4.0); Lymphocyte % 4.2 % (19-41); Mean Corp Hgb Conc 33.4 g/gl (32-36); Mean Corpuscular Hgb 31.3 pg (27.0-32.0); Mean Corpuscular Volume 93.6 fL (80-94); Monocyte% 3.7 % (0-10); Neutrophil # 17.36 X10^3/uL (2.7-7.7); Neutrophil % 91.9 % (47-70); POSITIVE COUNT NO; POSITIVE DIFFERENTIAL NO; POSITIVE MORPHOLOGY NO; Platelet Count 222 K/mm3 (150-450); RBC Distribution Width CV 13.8 % (11.6-14.6); RBC Distribution Width SD 45.6 fl (35.1-43.9); White Blood Count 18.9 K/mm3 (4.4-11.0)
[2018-05-06 10:31] LABS: Anion Gap 9 (5-15); BUN 16 mg/dL (7-18); BUN/Creat Ratio 22.8 RATIO (10-20); Calcium,Total 8.6 mg/dL (8.5-10.1); Chloride 102 mmol/L (98-107); EST Glomerular Filtration Rate 121 mL/min (>60); Est Glom Filt Rate - Afr Amer 147 mL/min (>60); Estimated Creatinine Clearance 89.19 ml/min; Glucose 162 mg/dL (74-106); Potassium 4.1 mmol/L (3.5-5.1); Sodium Level 141 mmol/L (136-145)
[2018-05-06] MEDS: Citalopram 40 MG TABLET PO (11:08)
[2018-05-06] MEDS: Tamsulosin HCl 0.4 MG Capsule PO ×2 (11:09→21:02)
[2018-05-06] MEDS: ROFLUMILAST 500 MCG TABLET PO (11:09)
[2018-05-06] MEDS: Famotidine 20 MG Tablet PO ×2 (11:09→21:01)
[2018-05-06] MEDS: Baclofen 10 MG Tablet 20 MG PO ×2 (11:09→21:01)
[2018-05-06] MEDS: guaiFENesin 1,200 MG Tablet 1200 MG PO (11:09)
[2018-05-06] MEDS: Enoxaparin 40 MG/0.4 ML Syringe SC (11:09)
[2018-05-06] MEDS: Montelukast 10 MG Tablet PO (11:10)
--- NOTE | 2018-05-06 12:11 | PCM.PN.HOSP ---
Patient Problems: Active and Suspected Problems Sepsis (Acute) Acute and chronic respiratory failure with hypoxia (Acute) COPD exacerbation (Acute) Pneumonia (Acute) Subjective: Patient is still short of breath. No fever after hospitalization. Leg swelling has come down on diuretics. Patient is on BiPAP at night. Currently pulse ox 92% on 5 L of oxygen through nasal cannula. Vitals/I&O's: Vital Signs Temp Pulse Resp BP Pulse Ox 98.2 F 82 18 130/81 H 92 05/06/18 08:30 05/06/18 08:30 05/06/18 08:30 05/06/18 08:30 05/06/18 08:30 Oxygen Flow Rate (L/min) 5 Oxygen Delivery Method Nasal Cannula Weight: 227 lb 4.745 oz Body Mass Index (BMI) 40.2 Intake and Output for Last 24 Hours 05/04/18 05/05/18 05/06/18 23:59 23:59 23:59 Intake Total 2571 / 2571 740 / 740 Output Total 1450 / 1450 700 / 700 Balance 1121 / 1121 40 / 40 General: Alert, Oriented x3, Cooperative HEENT: Atraumatic, PERRLA, EOMI, Normocephalic Neck: Supple, No JVD, Negative Carotid Bruits Lungs: Clear to auscultation, Diminished, Rhonchi, Short of Breath, Wheezes Cardiovascular: Regular rate, Regular Rhythm, Normal S1, Normal S2, No murmurs Abdomen: Bowel Sounds Present, Soft, Non Tender Extremities: Capillary Refill Less than 3 Seconds, Edema Skin: No rashes, No breakdown Musculoskeletal: No Tenderness to Palpation of Joints or Extremities Neurological: Cranial nerves II-XII grossly intact Psych/Mental Status: Normal Affect, Appropriate Microbiology Past 72 Hours 05/05/18 01:35 Mucosa - Nose Respiratory Panel (PCR) - Final 05/05/18 01:16 Urine, Clean Catch Streptococcus pneumoniae Antigen (M - Final 05/05/18 01:16 Urine, Clean Catch Legionella Antigen - Final Laboratory Results 05/06/18 09:45: WBC 18.9 H, RBC 4.70, Hgb 14.7, Hct 44.0, MCV 93.6, MCH 31.3, MCHC 33.4, RDW 13.8, RDW Differential 45.6 H, Plt Count 222, MPV 10.0, Immature Gran % (Auto) 0.200, Neut % (Auto) 91.9 H, Lymph % (Auto) 4.2 L, [place] % (Auto) 3.7, Eos % (Auto) 0.0, Baso % (Auto) 0.0, Absolute Neuts (auto) 17.4 H, Absolute Lymphs (auto) 0.79 L, Total Counted Not Reportable 05/06/18 09:45: Sodium 141, Potassium 4.1, Chloride 102, Carbon Dioxide 30.0, Anion Gap 9, BUN 16, Creatinine 0.70, Estim Creat Clear Calc 89.19, Est GFR (MDRD) Af Amer 147, Est GFR (MDRD) Non-Af 121, BUN/Creatinine Ratio 22.8 H, Glucose 162 H, Calcium 8.6 Current Medications Acetaminophen (Tylenol) 650 mg PO Q6H PRN PRN PRN Reason: Mild Pain (scale 0-3)/T>100.7 Last Admin: 05/05/18 14:30 Dose: 650 mg Al Hydroxide/Mg Hydroxide (Mylanta Ii) 30 ml PO Q6H PRN PRN PRN Reason: Gastric burning Albuterol Sulfate (Ventolin Aerosols) 2.5 mg INHALATION Q2H PRN PRN PRN Reason: SHORTNESS OF BREATH Albuterol/Ipratropium (Duoneb) 3 ml INHALATION Q4H.RT [facility] Last Admin: 05/06/18 06:59 Dose: 3 ml Aspirin (Aspirin, Baby) 81 mg PO DAILY@0800 [facility] Last Admin: 05/06/18 08:45 Dose: 81 mg Baclofen (Lioresal) 20 mg PO BID [facility] Last Admin: 05/06/18 11:09 Dose: 20 mg Citalopram Hydrobromide (Celexa) 40 mg PO DAILY [facility] Last Admin: 05/06/18 11:08 Dose: 40 mg Enoxaparin Sodium (Lovenox) 40 mg SC DAILY [facility] Last Admin: 05/06/18 11:09 Dose: 40 mg Famotidine (Pepcid) 20 mg PO BID [facility] Last Admin: 05/06/18 11:09 Dose: 20 mg Guaifenesin (Mucinex) 1,200 mg PO BID [facility] Last Admin: 05/06/18 11:09 Dose: 1,200 mg Azithromycin 500 mg/ Dextrose 255 mls @ 250 mls/hr IV Q24 [facility] Stop: 05/07/18 11:02 Last Admin: 05/05/18 09:42 Dose: 250 mls/hr Ceftriaxone Sodium 2 gm/ (Dextrose) 50 mls @ 100 mls/hr IV Q24 [facility] Last Admin: 05/06/18 11:08 Dose: 100 mls/hr Lorazepam (Ativan) 0.5 mg PO BID PRN PRN PRN Reason: ANXIETY Last Admin: 05/05/18 21:31 Dose: 0.5 mg Magnesium Hydroxide (Milk Of Magnesia) 30 ml PO DAILY PRN PRN Reason: Constipation Methylprednisolone (Solu-Medrol) 40 mg IV Q8 [facility] Last Admin: 05/06/18 05:37 Dose: 40 mg Montelukast Sodium (Singulair) 10 mg PO DAILY [facility] Last Admin: 05/06/18 11:10 Dose: 10 mg Ondansetron HCl (Zofran) 4 mg IV Q8H PRN PRN PRN Reason: NAUSEA Oxycodone HCl (Oxyir) 5 mg PO Q6H PRN PRN PRN Reason: PAIN Last Admin: 05/05/18 21:26 Dose: 5 mg Promethazine HCl (Phenergan) 12.5 mg IV Q6H PRN PRN PRN Reason: NAUSEA/VOMITING Sodium Chloride () 5 - 30 ml IV UD PRN PRN Reason: SALINE FLUSH Last Admin: 05/06/18 11:10 Dose: 10 ml Tamsulosin HCl (Flomax) 0.4 mg PO BID [facility] Last Admin: 05/06/18 11:09 Dose: 0.4 mg Medical Necessity - Tobacco Use Smoking Status: Current some day smoker Tobacco Use: Cigarettes Assessment/Plan All Active Problems Sepsis (Acute) Acute and chronic respiratory failure with hypoxia (Acute) COPD exacerbation (Acute) Pneumonia (Acute) The patient is a 62 y/o M with history of chronic hypoxic respiratory failure on 4-5 L of oxygen through nasal cannula at home, morbid obesity, KARIN,BPH, Anxiety and Depression was admitted with fever, chills, nonproductive cough, progressive worsening of shortness of breath or 1 day consistent with acute on chronic COPD exacerbation 1. Acute on chronic hypoxic and hypercarbic combined respiratory failure secondary to COPD exacerbation and possible pneumonia: Oxygen support to keep pulse ox 90%. BiPAP at night. 2.COPD exacerbation exacerbation most probably from viral bronchitis/pneumonia: Respiratory panel is negative. Urinary antigens are negative. Continue DuoNeb every 4 hourly, IV Solu-Medrol, incentive spirometry, mucolytic and oxygen support. Leukocytosis persistent probably secondary to steroid. 3. Possible right middle lobe/right lower lobe community-acquired pneumonia. Patient has clinical symptoms of pneumonia including fever, tachypnea, shortness of breath. Chest x-ray raises shows density in the right lung base and superimposed infiltrate cannot be excluded therefore suspicion of community-acquired pneumonia. Continue IV ceftriaxone and azithromycin. Morbid obesity. emphasized lifestyle modifications 4. KARIN. Continue CPAP on home settings DVT prophylaxis: On Lovenox Microbiology Past 72 Hours 05/05/18 01:35 Mucosa - Nose Respiratory Panel (PCR) - Final 05/05/18 01:16 Urine, Clean Catch Streptococcus pneumoniae Antigen (M - Final 05/05/18 01:16 Urine, Clean Catch Legionella Antigen - Final Laboratory Results 05/06/18 09:45: WBC 18.9 H, RBC 4.70, Hgb 14.7, Hct 44.0, MCV 93.6, MCH 31.3, MCHC 33.4, RDW 13.8, RDW Differential 45.6 H, Plt Count 222, MPV 10.0, Immature Gran % (Auto) 0.200, Neut % (Auto) 91.9 H, Lymph % (Auto) 4.2 L, [place] % (Auto) 3.7, Eos % (Auto) 0.0, Baso % (Auto) 0.0, Absolute Neuts (auto) 17.4 H, Absolute Lymphs (auto) 0.79 L, Total Counted Not Reportable 05/06/18 09:45: Sodium 141, Potassium 4.1, Chloride 102, Carbon Dioxide 30.0, Anion Gap 9, BUN 16, Creatinine 0.70, Estim Creat Clear Calc 89.19, Est GFR (MDRD) Af Amer 147, Est GFR (MDRD) Non-Af 121, BUN/Creatinine Ratio 22.8 H, Glucose 162 H, Calcium 8.6 Code Visit Inpatient E&M: [id number] Subs Hosp L3
--- NOTE | 2018-05-06 14:10 | CPS ---
Patient placed on BiPAP at this time.
[2018-05-06] MEDS: oxyCODONE 5 MG Tablet PO ×2 (15:54→23:19)
--- NOTE | 2018-05-06 16:58 | CPS ---
Patient working on PEP on own.
--- NOTE | 2018-05-06 16:59 | CPS ---
Patient taken off BiPAP for aerosol, placed on 5lpm nasal cannula.
[2018-05-06] MEDS: LORazepam 0.5 MG Tablet PO (23:19)
[2018-05-07] VITALS (18 sets, daily range): BP systolic 133–148; BP diastolic 87–91; PULSE 67–100; RESP 12–27; TEMP 36.6–37; O2SAT 92–93
[2018-05-07] MEDS: 0.9% NaCl Peripheral Flush Adult/Peds IV ×2 (05:53→23:12)
[2018-05-07] MEDS: Ipratropium/Albuterol Sulfate 3 ML AMPUL.NEB INHALATION ×5 (06:37→23:09)
[2018-05-07] MEDS: Aspirin 81 MG TAB.CHEW PO (08:57)
[2018-05-07] MEDS: ROFLUMILAST 500 MCG TABLET PO (08:58)
[2018-05-07] MEDS: Tamsulosin HCl 0.4 MG Capsule PO ×2 (08:58→22:44)
[2018-05-07] MEDS: Baclofen 10 MG Tablet 20 MG PO ×2 (08:58→22:44)
[2018-05-07] MEDS: Enoxaparin 40 MG/0.4 ML Syringe SC (08:59)
[2018-05-07] MEDS: Montelukast 10 MG Tablet PO (09:00)
[2018-05-07] MEDS: Famotidine 20 MG Tablet PO ×2 (09:00→22:44)
[2018-05-07] MEDS: oxyCODONE 5 MG Tablet PO ×2 (09:44→22:43)
--- NOTE | 2018-05-07 10:55 | CASEMGMT ---
SHAYY WEINER Assessment completed. See Link. DC PLAN: Home, possible need for HHS. -Waiver services. Aides through [facility] 5x week, 3hrs 3 days and 2 hrs 2 days. SHAYY WEINER called to [facility] to notify CM that pt is in hospital. -Discussed possible need for RN TUL[place] on dc, pt will consider. -Pt states he drives and can f/u with physicians. Has Pulmonolgist Dr. Malave in [place] but he is retiring. Pt is considering changing to see Dr. Hughes in [place].
--- NOTE | 2018-05-07 12:23 | PN_ITS ---
Patient Problems: Active and Suspected Problems Sepsis (Acute) Acute and chronic respiratory failure with hypoxia (Acute) COPD exacerbation (Acute) Pneumonia (Acute) Subjective: Patient is not having expected improvement in dyspnea, hypoxia. Still on 5 L of oxygen through nasal cannula and BiPAP at night. Preliminary sputum cultures growing alpha hemolytic strep Vitals/I&O's: Vital Signs Temp Pulse Resp BP Pulse Ox 98.4 F 98 22 H 133/87 H 92 05/07/18 08:50 05/07/18 11:14 05/07/18 10:31 05/07/18 08:50 05/07/18 08:50 Oxygen Flow Rate (L/min) 5 Oxygen Delivery Method Nasal Cannula Weight: 227 lb 4.745 oz Body Mass Index (BMI) 40.2 Intake and Output for Last 24 Hours 05/05/18 05/06/18 05/07/18 23:59 23:59 23:59 Intake Total 2571 / 2571 1754 / 1754 480 / 480 Output Total 1450 / 1450 700 / 700 300 / 300 Balance 1121 / 1121 1054 / 1054 180 / 180 General: Alert, Oriented x3, Cooperative HEENT: Atraumatic, PERRLA, EOMI, Normocephalic Neck: Supple, No JVD, Negative Carotid Bruits Lungs: Diminished - Air entry diffusely diminished., Rhonchi, Short of Breath - On mild exertion Cardiovascular: Regular rate, Regular Rhythm, Normal S1, Normal S2, No murmurs Abdomen: Bowel Sounds Present, Soft, Non Tender, Non-Distended Extremities: No edema, Capillary Refill Less than 3 Seconds Skin: No rashes, No breakdown Musculoskeletal: No Tenderness to Palpation of Joints or Extremities Neurological: Cranial nerves II-XII grossly intact Psych/Mental Status: Normal Affect, Appropriate Microbiology Past 72 Hours 05/06/18 11:05 Sputum, Expectorated/Coughed Respiratory Culture - Preliminary Alpha hemolytic organism 05/05/18 01:35 Mucosa - Nose Respiratory Panel (PCR) - Final 05/05/18 01:16 Urine, Clean Catch Streptococcus pneumoniae Antigen (M - Final 05/05/18 01:16 Urine, Clean Catch Legionella Antigen - Final Current Medications Acetaminophen (Tylenol) 650 mg PO Q6H PRN PRN PRN Reason: Mild Pain (scale 0-3)/T>100.7 Last Admin: 05/05/18 14:30 Dose: 650 mg Al Hydroxide/Mg Hydroxide (Mylanta Ii) 30 ml PO Q6H PRN PRN PRN Reason: Gastric burning Albuterol Sulfate (Ventolin Aerosols) 2.5 mg INHALATION Q2H PRN PRN PRN Reason: SHORTNESS OF BREATH Albuterol/Ipratropium (Duoneb) 3 ml INHALATION Q4H.RT [facility] Last Admin: 05/07/18 10:31 Dose: 3 ml Aspirin (Aspirin, Baby) 81 mg PO DAILY@0800 [facility] Last Admin: 05/07/18 08:57 Dose: 81 mg Baclofen (Lioresal) 20 mg PO BID [facility] Last Admin: 05/07/18 08:58 Dose: 20 mg Citalopram Hydrobromide (Celexa) 40 mg PO DAILY [facility] Last Admin: 05/07/18 08:57 Dose: Not Given Enoxaparin Sodium (Lovenox) 40 mg SC DAILY [facility] Last Admin: 05/07/18 08:59 Dose: 40 mg Famotidine (Pepcid) 20 mg PO BID [facility] Last Admin: 05/07/18 09:00 Dose: 20 mg Guaifenesin (Mucinex) 1,200 mg PO BID [facility] Last Admin: 05/07/18 08:59 Dose: Not Given Ceftriaxone Sodium 2 gm/ (Dextrose) 50 mls @ 100 mls/hr IV Q24 [facility] Last Admin: 05/07/18 09:44 Dose: 100 mls/hr Lorazepam (Ativan) 0.5 mg PO BID PRN PRN PRN Reason: ANXIETY Last Admin: 05/06/18 23:19 Dose: 0.5 mg Magnesium Hydroxide (Milk Of Magnesia) 30 ml PO DAILY PRN PRN Reason: Constipation Methylprednisolone (Solu-Medrol) 40 mg IV Q8 [facility] Last Admin: 05/07/18 05:53 Dose: 40 mg Montelukast Sodium (Singulair) 10 mg PO DAILY [facility] Last Admin: 05/07/18 09:00 Dose: 10 mg Nicotine (Nicoderm Cq (Pbkc)) 21 mg TRANSDERM. DAILY [facility] Last Admin: 05/07/18 08:59 Dose: 21 mg Ondansetron HCl (Zofran) 4 mg IV Q8H PRN PRN PRN Reason: NAUSEA Oxycodone HCl (Oxyir) 5 mg PO Q6H PRN PRN PRN Reason: PAIN Last Admin: 05/07/18 09:44 Dose: 5 mg Promethazine HCl (Phenergan) 12.5 mg IV Q6H PRN PRN PRN Reason: NAUSEA/VOMITING Sodium Chloride () 5 - 30 ml IV UD PRN PRN Reason: SALINE FLUSH Last Admin: 05/07/18 05:53 Dose: 10 ml Tamsulosin HCl (Flomax) 0.4 mg PO BID [facility] Last Admin: 05/07/18 08:58 Dose: 0.4 mg Medical Necessity - Tobacco Use Smoking Status: Current some day smoker Tobacco Use: Cigarettes Assessment/Plan All Active Problems Sepsis (Acute) Acute and chronic respiratory failure with hypoxia (Acute) COPD exacerbation (Acute) Pneumonia (Acute) The patient is a 62 y/o M with history of chronic hypoxic respiratory failure on 4-5 L of oxygen through nasal cannula at home, morbid obesity, KARIN,BPH, Anxiety and Depression was admitted with fever, chills, nonproductive cough, progressive worsening of shortness of breath or 1 day consistent with acute on chronic COPD exacerbation 1. Acute on chronic hypoxic and hypercarbic combined respiratory failure secondary to COPD exacerbation and possible pneumonia: Oxygen support to keep pulse ox 90%. BiPAP at night. No significant improvement with regard to hypoxia/dyspnea. Pulmonary consult requested. 2.COPD exacerbation exacerbation most probably from viral bronchitis/pneumonia: Respiratory panel is negative. Urinary antigens are negative. Continue DuoNeb every 4 hourly, IV Solu-Medrol, incentive spirometry, mucolytic and oxygen support. Leukocytosis persistent probably secondary to steroid. 3. Possible right middle lobe/right lower lobe community-acquired pneumonia. Patient has clinical symptoms of pneumonia including fever, tachypnea, shortness of breath. Chest x-ray raises shows density in the right lung base and superimposed infiltrate cannot be excluded therefore suspicion of community- acquired pneumonia. Continue IV ceftriaxone. Treated course of azithromycin preliminary sputum culture is growing alphahemolytic Streptococcus, unclear whether pathogenic or commensal. Repeat chest x-ray PA and lateral ordered. Morbid obesity. emphasized lifestyle modifications 4. KARIN. Continue CPAP on home settings DVT prophylaxis: On Lovenox Microbiology Past 72 Hours 05/06/18 11:05 Sputum, Expectorated/Coughed Gram Stain - Final 05/06/18 11:05 Sputum, Expectorated/Coughed Respiratory Culture - Preliminary Alpha hemolytic organism 05/05/18 01:35 Mucosa - Nose Respiratory Panel (PCR) - Final 05/05/18 01:16 Urine, Clean Catch Streptococcus pneumoniae Antigen (M - Final 05/05/18 01:16 Urine, Clean Catch Legionella Antigen - Final Laboratory Results 05/07/18 09:45: B-Natriuretic Peptide Pending Code Visit Inpatient E&M: [id number] Subs Hosp L3
--- NOTE | 2018-05-07 13:36 | PCM.CONS.GEN ---
Problem List (1) Acute and chronic respiratory failure with hypoxia Status: Acute (2) COPD exacerbation Status: Acute (3) KARIN (obstructive sleep apnea) Status: Chronic (4) Morbid obesity due to excess calories Status: Chronic (5) Chronic back pain Status: Chronic Qualifiers: Back pain location: back pain in unspecified location Back pain laterality: unspecified Qualified Code(s): M54.9 - Dorsalgia, unspecified; G89.29 - Other chronic pain (6) Anxiety and depression Status: Chronic (7) Allergic rhinitis Status: Chronic Qualifiers: Allergic rhinitis trigger: unspecified Allergic rhinitis seasonality: unspecified Qualified Code(s): J30.9 - Allergic rhinitis, unspecified Reason for Consult Date of Consultation: 05/07/18 Reason for Consultation: Hypoxic respiratory failure History of Present Illness: The patient is a 62 year old M, with past medical history listed below, who presented to [facility] on 05/04/2018 secondary to cough, fever and progressive shortness of breath over a 2-3 week period. Patient reports that he was admitted in October with a similar type of presentation was discharged on supplemental oxygen. Patient states he has been using 3-1/2-5 L nasal cannula oxygen at baseline. Patient also reports the use of a noninvasive machine for obstructive sleep apnea. Patient denies any sick contacts. On presentation, patient was noted to be tachycardic with a heart rate of 123 bpm and saturating 91% on 5 L. Patient had used accessory muscle use. Global wheezing was noted and patient did have 2-3 pending edema of the lower extremities. Chest x-ray was suggestive of a right lower lobe pneumonia and patient was noted to have leukocytosis. Patient was admitted to the floor on [facility]. Over the course of patient's hospitalization, patient has not had any significant change in his overall condition. Patient reports some mild subjective improvement in dyspnea, but still reports significant dyspnea with any exertion. Patient is still requiring 5-6 L of nasal cannula oxygen to maintain appropriate saturations. Patient reports that he does follow with Dr. Malave as an outpatient. Patient states his last pulmonary function tests were 2-3 years ago and were not very good. Patient states he has been using 3-1/2-5 L nasal cannula oxygen at home. Patient does not routinely check his saturations. Patient does report increase in lower extremity swelling over the last 4-5 months. Patient states initially this will go away with elevation, but recently he has been waking with continued lower extremity swelling. Patient does report dyspnea on exertion at baseline, but states his current exercise tolerance is less than 30 feet. Patient denies ever being in intensive care unit over respiratory issues. Patient has never been intubated. Patient does use his home KARIN machine, but denies BiPAP rescue for breathing issues. Patient denies any history of cardiac issues and states that his last stress test was 2-3 years ago and was negative. Patient does report that he continues to smoke intermittently. Patient denies smoking with oxygen in place. Patient denies any recent trauma. Patient denies any dysuria or exudate from the lower extremities. 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 Review of systems otherwise negative ?10 systems. Past Medical History Past Medical History (Chronic Problems): Chronic Problems KARIN (obstructive sleep apnea) (Chronic) Morbid obesity due to excess calories (Chronic) Chronic back pain (Chronic) Anxiety and depression (Chronic) Allergic rhinitis (Chronic) Allergies No Known Allergies Allergy (Verified 05/04/18 21:17) Home Medications: Ambulatory Orders Medication Instructions Recorded Baclofen [Lioresal] 20 mg PO BID 01/30/14 Budesonide/Formoterol 160/4.5 2 puff INHALATION BID 01/30/14 [Symbicort 160/4.5 Mcg Inhaler (SP)] Ipratropium/Albuterol Respimat 1 puff INHALATION 4X/DAY 01/30/14 [Combivent Respimat Inhal [facility]] Lorazepam [Ativan] 0.5 mg PO BID PRN PRN 01/30/14 Oxycodone HCl/Acetaminophen 1 tablet PO 4X/DAY PRN 01/30/14 [Percocet 5/325] Aspirin [Aspirin, Baby] 81 mg PO DAILY@0800 10/24/17 Benzonatate [Tessalon Perle] 100 mg PO 4X/DAY PRN PRN 10/24/17 Montelukast [Singulair] 10 mg PO DAILY 10/24/17 Roflumilast [Daliresp] 500 mcg PO DAILY 10/24/17 Tamsulosin HCl [Flomax] 0.4 mg PO BID 10/24/17 Bentyl 10 mg PO 05/05/18 Docusate Sodium [Colace] 100 mg PO BID 05/05/18 Melatonin 10 mg PO 05/05/18 Ropinirole HCl [Requip] 0.5 mg PO QHS 05/05/18 traZODone [Desyrel] 100 mg PO QHS 05/05/18 Surgical History: - - Vasectomy, right carpal tunnel surgery ?2, umbilical hernia repair ?2. 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 Drugs: None - *Family History Maternal History Items: Cancer Paternal History Items: Cancer Review of Systems Comment: See HPI Patient Problems: Active and Suspected Problems Sepsis (Acute) Acute and chronic respiratory failure with hypoxia (Acute) COPD exacerbation (Acute) Pneumonia (Acute) Objective: Chest x-ray was personally reviewed and shows a left pleural effusion with right lower lobe infiltrate. No pulmonary function tests or echocardiogram was available for review. - Physical Exam General: Alert, Oriented x3, Cooperative, - - Mild conversational dyspnea. Appears older than stated age. Morbidly obese. HEENT: Atraumatic, PERRLA, EOMI, Normocephalic, - - Nasal cannula oxygen in place. Slight scleral injection without icterus Oral: Moist Mucosa, No Gingival or Mucosal Lesions/ Ulcerations Neck: Supple, No Nodes, Trachea Midline, JVD, Right Lungs: No rhonchi, No rales, Diminished, Wheezes, - - Fair effort. Cardiovascular: Normal S1, Normal S2, No murmurs, No rub noted, No Gallop, Tachycardic Abdomen: Bowel Sounds Present, Soft, Non Tender, Non-Distended, Obese Extremities: No clubbing, No cyanosis, Capillary Refill Less than 3 Seconds, Edema - 1-2+ lower extremities Skin: No rashes, No breakdown, - - Venous stasis changes of the lower extremities appreciated. No cellulitis noted. Musculoskeletal: No Tenderness to Palpation of Joints or Extremities Lymphatic: No Cervical, Supraclavicular, or Inguinal Adenopathy Neurological: Cranial nerves II-XII grossly intact, Neuro grossly intact, Motor Exam 5/5 strength throughout Psych/Mental Status: Alert and oriented to time, place, person, mood and affect Vital Signs Temp Pulse Resp BP Pulse Ox 36.9 C 98 22 H 133/87 H 92 05/07/18 08:50 05/07/18 11:14 05/07/18 10:31 05/07/18 08:50 05/07/18 08:50 Oxygen Flow Rate (L/min) 5 Oxygen Delivery Method Nasal Cannula Weight: 103.1 kg Body Mass Index (BMI) 40.2 Intake and Output for Last 24 Hours 05/05/18 05/06/18 05/07/18 23:59 23:59 23:59 Intake Total 2571 / 2571 1754 / 1754 480 / 480 Output Total 1450 / 1450 700 / 700 300 / 300 Balance 1121 / 1121 1054 / 1054 180 / 180 Laboratory Tests 05/04/18 05/04/18 05/04/18 21:28 21:58 21:58 WBC 19.5 H RBC 4.88 Hgb 15.2 Hct 46.3 MCV 94.9 H MCH 31.1 MCHC 32.8 RDW 13.9 RDW Differential 48.1 H Plt Count 204 MPV 9.4 Immature Gran % (Auto) 0.100 Neut % (Auto) 82.6 H Lymph % (Auto) 8.1 L Miner % (Auto) 8.8 Eos % (Auto) 0.2 Baso % (Auto) 0.2 Absolute Neuts (auto) 16.1 H Absolute Lymphs (auto) 1.58 Total Counted Not Reportable Differential Comment SCANNED Diff Path Review May foll Reactive Lymphocytes RARE Platelet Estimate ADEQUATE Specimen Type Sample Site pH Bicarbonate Actual POC Total CO2 Base Excess O2 Saturation ABG pCO2 ABG pO2 Jim Test O2 Delivery Device Liter Flow Blood Gas Notified Whom Blood Gas Notified Time Sodium 142 Potassium 3.9 Chloride 101 Carbon Dioxide 34.0 H Anion Gap 7 BUN 12 Creatinine 0.80 Estim Creat Clear Calc 78.04 Est GFR (MDRD) Af Amer 126 Est GFR (MDRD) Non-Af 104 BUN/Creatinine Ratio 14.9 Glucose 107 H Lactic Acid Calcium 8.9 Magnesium 2.0 Total Bilirubin 0.60 AST 15 ALT 23 Alkaline Phosphatase 73 Total Protein 7.5 Albumin 3.6 Globulin 3.9 Albumin/Globulin Ratio 0.9 05/04/18 05/05/18 05/06/18 21:58 00:07 09:45 WBC 18.9 H RBC 4.70 Hgb 14.7 Hct 44.0 MCV 93.6 MCH 31.3 MCHC 33.4 RDW 13.8 RDW Differential 45.6 H Plt Count 222 MPV 10.0 Immature Gran % (Auto) 0.200 Neut % (Auto) 91.9 H Lymph % (Auto) 4.2 L Miner % (Auto) 3.7 Eos % (Auto) 0.0 Baso % (Auto) 0.0 Absolute Neuts (auto) 17.4 H Absolute Lymphs (auto) 0.79 L Total Counted Not Reportable Differential Comment Diff Path Review Reactive Lymphocytes Platelet Estimate Specimen Type ART Sample Site L Radial pH 7.40 Bicarbonate Actual 31.2 H POC Total CO2 33 Base Excess 6 H O2 Saturation 88 L ABG pCO2 50.7 H ABG pO2 55 L Jim Test POS O2 Delivery Device Nasal Can Liter Flow 5.0 Blood Gas Notified Whom [facility] Blood Gas Notified Time 10 Sodium Potassium Chloride Carbon Dioxide Anion Gap BUN Creatinine Estim Creat Clear Calc Est GFR (MDRD) Af Amer Est GFR (MDRD) Non-Af BUN/Creatinine Ratio Glucose Lactic Acid 0.8 Calcium Magnesium Total Bilirubin AST ALT Alkaline Phosphatase Total Protein Albumin Globulin Albumin/Globulin Ratio 05/06/18 09:45 WBC RBC Hgb Hct MCV MCH MCHC RDW RDW Differential Plt Count MPV Immature Gran % (Auto) Neut % (Auto) Lymph % (Auto) Miner % (Auto) Eos % (Auto) Baso % (Auto) Absolute Neuts (auto) Absolute Lymphs (auto) Total Counted Differential Comment Diff Path Review Reactive Lymphocytes Platelet Estimate Specimen Type Sample Site pH Bicarbonate Actual POC Total CO2 Base Excess O2 Saturation ABG pCO2 ABG pO2 Jim Test O2 Delivery Device Liter Flow Blood Gas Notified Whom Blood Gas Notified Time Sodium 141 Potassium 4.1 Chloride 102 Carbon Dioxide 30.0 Anion Gap 9 BUN 16 Creatinine 0.70 Estim Creat Clear Calc 89.19 Est GFR (MDRD) Af Amer 147 Est GFR (MDRD) Non-Af 121 BUN/Creatinine Ratio 22.8 H Glucose 162 H Lactic Acid Calcium 8.6 Magnesium Total Bilirubin AST ALT Alkaline Phosphatase Total Protein Albumin Globulin Albumin/Globulin Ratio Clinical Impression(s) from Imaging Studies Chest X-Ray 05/04/18 21:45 IMPRESSION: Chronic interstitial changes. Cannot exclude coexisting right lower lobe pneumonia. Left pleural thickening or tiny effusion with mild basilar atelectasis. Electronically Signed: Shaun Franco MD at 22:56 EDT , Service support , Assessment/Plan All Active Problems Sepsis (Acute) Acute and chronic respiratory failure with hypoxia (Acute) COPD exacerbation (Acute) Pneumonia (Acute) RECOMMENDATIONS: 1. Increase intensity of Solu-Medrol 2. Continue empiric antibiotics for now 3. Obtain echocardiogram and BNP 4. Wean oxygen as tolerated 5. Walking oximetry prior to discharge 6. Continue BiPAP nightly IMPRESSIONS: 1. Acute on chronic hypoxic respiratory failure secondary to possible right lower lobe pneumonia/COPD exacerbation Patient reportedly with advanced COPD by PFT criteria. No records are available for review at this time. Patient does use significant supplemental oxygen at baseline, but has required BiPAP rescue while in the hospital. Patient's elevated bicarbonate is suggestive of CO2 retention. Would obtain an ABG if patient started to have decreased mental status. Would continue with empiric antibiotics for now given patient's continued leukocytosis, elevated temperature and infiltrate on chest x-ray. Patient has had some persistent basilar infiltrates noted on serial chest imaging. 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 Another possible etiology would be congestive heart failure given patient's pleural effusion. Patient may benefit from diuretic therapy if consistent on echocardiogram with congestive heart failure. 2. Possible congestive heart failure versus cor pulmonale Patient was significant swelling of the lower extremities over the last 3-4 months. Clinical suspicion for at least cor pulmonale exacerbated by exertional hypoxemia. Patient may also have an element of congestive heart failure given comorbidities. Patient states he had a stress test that was normal in the past, but this is not available for review. Will obtain an echocardiogram for quantification and clarification of heart function. 3. Morbid obesity/KARIN/anxiety/depression/chronic pain syndrome Complicates care, management, recovery and prognosis. Continue with baseline noninvasive therapy. Okay to continue with baseline medications from my perspective. Code Visit Inpatient E&M: [id number] Init Hosp L3
--- NOTE | 2018-05-07 13:43 | CON.PCM_ITS ---
Problem List (1) Acute and chronic respiratory failure with hypoxia Status: Acute (2) COPD exacerbation Status: Acute (3) KARIN (obstructive sleep apnea) Status: Chronic (4) Morbid obesity due to excess calories Status: Chronic (5) Chronic back pain Status: Chronic Qualifiers: Back pain location: back pain in unspecified location Back pain laterality : unspecified Qualified Code(s): M54.9 - Dorsalgia, unspecified; G89.29 - Other chronic pain (6) Anxiety and depression Status: Chronic (7) Allergic rhinitis Status: Chronic Qualifiers: Allergic rhinitis trigger: unspecified Allergic rhinitis seasonality: unspecified Qualified Code(s): J30.9 - Allergic rhinitis, unspecified Reason for Consult Date of Consultation: 05/07/18 Reason for Consultation: Hypoxic respiratory failure History of Present Illness: The patient is a 62 year old M, with past medical history listed below, who presented to [facility] on 05/04/2018 secondary to cough, fever and progressive shortness of breath over a 2-3 week period. Patient reports that he was admitted in October with a similar type of presentation was discharged on supplemental oxygen. Patient states he has been using 3-1/2-5 L nasal cannula oxygen at baseline. Patient also reports the use of a noninvasive machine for obstructive sleep apnea. Patient denies any sick contacts. On presentation, patient was noted to be tachycardic with a heart rate of 123 bpm and saturating 91% on 5 L. Patient had used accessory muscle use. Global wheezing was noted and patient did have 2-3 pending edema of the lower extremities. Chest x-ray was suggestive of a right lower lobe pneumonia and patient was noted to have leukocytosis. Patient was admitted to the floor on [facility]. Over the course of patient's hospitalization, patient has not had any significant change in his overall condition. Patient reports some mild subjective improvement in dyspnea, but still reports significant dyspnea with any exertion. Patient is still requiring 5-6 L of nasal cannula oxygen to maintain appropriate saturations. Patient reports that he does follow with Dr. Malave as an outpatient. Patient states his last pulmonary function tests were 2-3 years ago and were not very good. Patient states he has been using 3-1/2-5 L nasal cannula oxygen at home. Patient does not routinely check his saturations. Patient does report increase in lower extremity swelling over the last 4-5 months. Patient states initially this will go away with elevation, but recently he has been waking with continued lower extremity swelling. Patient does report dyspnea on exertion at baseline, but states his current exercise tolerance is less than 30 feet. Patient denies ever being in intensive care unit over respiratory issues. Patient has never been intubated. Patient does use his home KARIN machine, but denies BiPAP rescue for breathing issues. Patient denies any history of cardiac issues and states that his last stress test was 2-3 years ago and was negative. Patient does report that he continues to smoke intermittently. Patient denies smoking with oxygen in place. Patient denies any recent trauma. Patient denies any dysuria or exudate from the lower extremities. 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 Review of systems otherwise negative ?10 systems. Past Medical History Past Medical History (Chronic Problems): Chronic Problems KARIN (obstructive sleep apnea) (Chronic) Morbid obesity due to excess calories (Chronic) Chronic back pain (Chronic) Anxiety and depression (Chronic) Allergic rhinitis (Chronic) Allergies No Known Allergies Allergy (Verified 05/04/18 21:17) Home Medications: Ambulatory Orders Medication Instructions Recorded Baclofen [Lioresal] 20 mg PO BID 01/30/14 Budesonide/Formoterol 160/4.5 2 puff INHALATION BID 01/30/14 [Symbicort 160/4.5 Mcg Inhaler (SP)] Ipratropium/Albuterol Respimat 1 puff INHALATION 4X/DAY 01/30/14 [Combivent Respimat Inhal [place]] Lorazepam [Ativan] 0.5 mg PO BID PRN PRN 01/30/14 Oxycodone HCl/Acetaminophen 1 tablet PO 4X/DAY PRN 01/30/14 [Percocet 5/325] Aspirin [Aspirin, Baby] 81 mg PO DAILY@0800 10/24/17 Benzonatate [Tessalon Perle] 100 mg PO 4X/DAY PRN PRN 10/24/17 Montelukast [Singulair] 10 mg PO DAILY 10/24/17 Roflumilast [Daliresp] 500 mcg PO DAILY 10/24/17 Tamsulosin HCl [Flomax] 0.4 mg PO BID 10/24/17 Bentyl 10 mg PO 05/05/18 Docusate Sodium [Colace] 100 mg PO BID 05/05/18 Melatonin 10 mg PO 05/05/18 Ropinirole HCl [Requip] 0.5 mg PO QHS 05/05/18 traZODone [Desyrel] 100 mg PO QHS 05/05/18 Surgical History: - - Vasectomy, right carpal tunnel surgery ?2, umbilical hernia repair ?2. 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 Drugs: None - *Family History Maternal History Items: Cancer Paternal History Items: Cancer Review of Systems Comment: See HPI Patient Problems: Active and Suspected Problems Sepsis (Acute) Acute and chronic respiratory failure with hypoxia (Acute) COPD exacerbation (Acute) Pneumonia (Acute) Objective: Chest x-ray was personally reviewed and shows a left pleural effusion with right lower lobe infiltrate. No pulmonary function tests or echocardiogram was available for review. - Physical Exam General: Alert, Oriented x3, Cooperative, - - Mild conversational dyspnea. Appears older than stated age. Morbidly obese. HEENT: Atraumatic, PERRLA, EOMI, Normocephalic, - - Nasal cannula oxygen in place. Slight scleral injection without icterus Oral: Moist Mucosa, No Gingival or Mucosal Lesions/ Ulcerations Neck: Supple, No Nodes, Trachea Midline, JVD, Right Lungs: No rhonchi, No rales, Diminished, Wheezes, - - Fair effort. Cardiovascular: Normal S1, Normal S2, No murmurs, No rub noted, No Gallop, Tachycardic Abdomen: Bowel Sounds Present, Soft, Non Tender, Non-Distended, Obese Extremities: No clubbing, No cyanosis, Capillary Refill Less than 3 Seconds, Edema - 1-2+ lower extremities Skin: No rashes, No breakdown, - - Venous stasis changes of the lower extremities appreciated. No cellulitis noted. Musculoskeletal: No Tenderness to Palpation of Joints or Extremities Lymphatic: No Cervical, Supraclavicular, or Inguinal Adenopathy Neurological: Cranial nerves II-XII grossly intact, Neuro grossly intact, Motor Exam 5/5 strength throughout Psych/Mental Status: Alert and oriented to time, place, person, mood and affect Vital Signs Temp Pulse Resp BP Pulse Ox 36.9 C 98 22 H 133/87 H 92 05/07/18 08:50 05/07/18 11:14 05/07/18 10:31 05/07/18 08:50 05/07/18 08:50 Oxygen Flow Rate (L/min) 5 Oxygen Delivery Method Nasal Cannula Weight: 103.1 kg Body Mass Index (BMI) 40.2 Intake and Output for Last 24 Hours 05/05/18 05/06/18 05/07/18 23:59 23:59 23:59 Intake Total 2571 / 2571 1754 / 1754 480 / 480 Output Total 1450 / 1450 700 / 700 300 / 300 Balance 1121 / 1121 1054 / 1054 180 / 180 Laboratory Tests 05/04/18 05/04/18 05/04/18 21:28 21:58 21:58 WBC 19.5 H RBC 4.88 Hgb 15.2 Hct 46.3 MCV 94.9 H MCH 31.1 MCHC 32.8 RDW 13.9 RDW Differential 48.1 H Plt Count 204 MPV 9.4 Immature Gran % (Auto) 0.100 Neut % (Auto) 82.6 H Lymph % (Auto) 8.1 L [place] % (Auto) 8.8 Eos % (Auto) 0.2 Baso % (Auto) 0.2 Absolute Neuts (auto) 16.1 H Absolute Lymphs (auto) 1.58 Total Counted Not Reportable Differential Comment SCANNED Diff Path Review May foll Reactive Lymphocytes RARE Platelet Estimate ADEQUATE Specimen Type Sample Site pH Bicarbonate Actual POC Total CO2 Base Excess O2 Saturation ABG pCO2 ABG pO2 Jim Test O2 Delivery Device Liter Flow Blood Gas Notified Whom Blood Gas Notified Time Sodium 142 Potassium 3.9 Chloride 101 Carbon Dioxide 34.0 H Anion Gap 7 BUN 12 Creatinine 0.80 Estim Creat Clear Calc 78.04 Est GFR (MDRD) Af Amer 126 Est GFR (MDRD) Non-Af 104 BUN/Creatinine Ratio 14.9 Glucose 107 H Lactic Acid Calcium 8.9 Magnesium 2.0 Total Bilirubin 0.60 AST 15 ALT 23 Alkaline Phosphatase 73 Total Protein 7.5 Albumin 3.6 Globulin 3.9 Albumin/Globulin Ratio 0.9 05/04/18 05/05/18 05/06/18 21:58 00:07 09:45 WBC 18.9 H RBC 4.70 Hgb 14.7 Hct 44.0 MCV 93.6 MCH 31.3 MCHC 33.4 RDW 13.8 RDW Differential 45.6 H Plt Count 222 MPV 10.0 Immature Gran % (Auto) 0.200 Neut % (Auto) 91.9 H Lymph % (Auto) 4.2 L [place] % (Auto) 3.7 Eos % (Auto) 0.0 Baso % (Auto) 0.0 Absolute Neuts (auto) 17.4 H Absolute Lymphs (auto) 0.79 L Total Counted Not Reportable Differential Comment Diff Path Review Reactive Lymphocytes Platelet Estimate Specimen Type ART Sample Site L Radial pH 7.40 Bicarbonate Actual 31.2 H POC Total CO2 33 Base Excess 6 H O2 Saturation 88 L ABG pCO2 50.7 H ABG pO2 55 L Jim Test POS O2 Delivery Device Nasal Can Liter Flow 5.0 Blood Gas Notified Whom [facility] Blood Gas Notified Time 10 Sodium Potassium Chloride Carbon Dioxide Anion Gap BUN Creatinine Estim Creat Clear Calc Est GFR (MDRD) Af Amer Est GFR (MDRD) Non-Af BUN/Creatinine Ratio Glucose Lactic Acid 0.8 Calcium Magnesium Total Bilirubin AST ALT Alkaline Phosphatase Total Protein Albumin Globulin Albumin/Globulin Ratio 05/06/18 09:45 WBC RBC Hgb Hct MCV MCH MCHC RDW RDW Differential Plt Count MPV Immature Gran % (Auto) Neut % (Auto) Lymph % (Auto) Angelina % (Auto) Eos % (Auto) Baso % (Auto) Absolute Neuts (auto) Absolute Lymphs (auto) Total Counted Differential Comment Diff Path Review Reactive Lymphocytes Platelet Estimate Specimen Type Sample Site pH Bicarbonate Actual POC Total CO2 Base Excess O2 Saturation ABG pCO2 ABG pO2 Jim Test O2 Delivery Device Liter Flow Blood Gas Notified Whom Blood Gas Notified Time Sodium 141 Potassium 4.1 Chloride 102 Carbon Dioxide 30.0 Anion Gap 9 BUN 16 Creatinine 0.70 Estim Creat Clear Calc 89.19 Est GFR (MDRD) Af Amer 147 Est GFR (MDRD) Non-Af 121 BUN/Creatinine Ratio 22.8 H Glucose 162 H Lactic Acid Calcium 8.6 Magnesium Total Bilirubin AST ALT Alkaline Phosphatase Total Protein Albumin Globulin Albumin/Globulin Ratio Clinical Impression(s) from Imaging Studies Chest X-Ray 05/04/18 21:45 IMPRESSION: Chronic interstitial changes. Cannot exclude coexisting right lower lobe pneumonia. Left pleural thickening or tiny effusion with mild basilar atelectasis. Electronically Signed: Shaun Franco MD at 22:56 EDT , Service support , Assessment/Plan All Active Problems Sepsis (Acute) Acute and chronic respiratory failure with hypoxia (Acute) COPD exacerbation (Acute) Pneumonia (Acute) RECOMMENDATIONS: 1. Increase intensity of Solu-Medrol 2. Continue empiric antibiotics for now 3. Obtain echocardiogram and BNP 4. Wean oxygen as tolerated 5. Walking oximetry prior to discharge 6. Continue BiPAP nightly IMPRESSIONS: 1. Acute on chronic hypoxic respiratory failure secondary to possible right lower lobe pneumonia/COPD exacerbation Patient reportedly with advanced COPD by PFT criteria. No records are available for review at this time. Patient does use significant supplemental oxygen at baseline, but has required BiPAP rescue while in the hospital. Patient's elevated bicarbonate is suggestive of CO2 retention. Would obtain an ABG if patient started to have decreased mental status. Would continue with empiric antibiotics for now given patient's continued leukocytosis, elevated temperature and infiltrate on chest x-ray. Patient has had some persistent basilar infiltrates noted on serial chest imaging. 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 Another possible etiology would be congestive heart failure given patient's pleural effusion. Patient may benefit from diuretic therapy if consistent on echocardiogram with congestive heart failure. 2. Possible congestive heart failure versus cor pulmonale Patient was significant swelling of the lower extremities over the last 3- 4 months. Clinical suspicion for at least cor pulmonale exacerbated by exertional hypoxemia. Patient may also have an element of congestive heart failure given comorbidities. Patient states he had a stress test that was normal in the past, but this is not available for review. Will obtain an echocardiogram for quantification and clarification of heart function. 3. Morbid obesity/AKRIN/anxiety/depression/chronic pain syndrome Complicates care, management, recovery and prognosis. Continue with baseline noninvasive therapy. Okay to continue with baseline medications from my perspective. Code Visit Inpatient E&M: [id number] Init Hosp L3
[2018-05-07 14:38] LABS: Pathologist Review Reviewed
[2018-05-07] MEDS: LORazepam 0.5 MG Tablet PO (22:43)
[2018-05-07] MEDS: guaiFENesin 1,200 MG Tablet 1200 MG PO (22:44)
[2018-05-07 23:10] LABS: BNP,B-Type NATRIURETIC PEPTIDE 45.5 pg/mL (0-100)
[2018-05-08] VITALS (19 sets, daily range): BP systolic 130–140; BP diastolic 76–91; PULSE 74–102; RESP 12–24; TEMP 36.7–37.2; O2SAT 90–97
[2018-05-08] MEDS: Ipratropium/Albuterol Sulfate 3 ML AMPUL.NEB INHALATION ×6 (03:25→22:52)
[2018-05-08] MEDS: 0.9% NaCl Peripheral Flush Adult/Peds IV ×5 (05:39→23:42)
[2018-05-08 05:56] LABS: Absolute Lymphocyte Count 0.77 X10^3/ul (0.83-4.51); Absolute Neutrophil Count 9.2 X10^3/uL (2.0-7.7); Hematocrit 43.5 % (40-54); Hemoglobin 14.7 g/dl (13.0-16.5); Lymphocyte # 0.77 X10^3/ul (4.0); Lymphocyte % 7.1 % (19-41); Mean Corp Hgb Conc 33.8 g/gl (32-36); Mean Corpuscular Hgb 31.7 pg (27.0-32.0); Mean Corpuscular Volume 93.8 fL (80-94); Mean Platelet Vol. 10.1 fl (6.2-12.0); Monocyte# 0.82 X10^3/uL; Monocyte% 7.6 % (0-10); Neutrophil # 9.23 X10^3/uL (2.7-7.7); Neutrophil % 85.1 % (47-70); Platelet Count 237 K/mm3 (150-450); RBC Distribution Width SD 46.5 fl (35.1-43.9); Red Blood Count 4.64 M/mm3 (4.6-6.2); White Blood Count 10.8 K/mm3 (4.4-11.0)
[2018-05-08 06:00] LABS: POSITIVE COUNT NO; POSITIVE DIFFERENTIAL NO; POSITIVE MORPHOLOGY NO
[2018-05-08 06:04] LABS: Anion Gap 7 (5-15); BUN 20 mg/dL (7-18); BUN/Creat Ratio 30.4 RATIO (10-20); Calcium,Total 8.6 mg/dL (8.5-10.1); Chloride 99 mmol/L (98-107); Creatinine, Serum 0.66 mg/dL (0.70-1.30); EST Glomerular Filtration Rate 131 mL/min (>60); Est Glom Filt Rate - Afr Amer 158 mL/min (>60); Estimated Creatinine Clearance 94.59 ml/min; Glucose 133 mg/dL (74-106); Potassium 4.7 mmol/L (3.5-5.1); Sodium Level 138 mmol/L (136-145)
[2018-05-08] MEDS: ROFLUMILAST 500 MCG TABLET PO (08:00)
[2018-05-08] MEDS: Aspirin 81 MG TAB.CHEW PO (08:00)
[2018-05-08] MEDS: Baclofen 10 MG Tablet 20 MG PO ×2 (08:00→22:18)
[2018-05-08] MEDS: Tamsulosin HCl 0.4 MG Capsule PO ×2 (08:00→22:17)
[2018-05-08] MEDS: Enoxaparin 40 MG/0.4 ML Syringe SC (08:00)
[2018-05-08] MEDS: Famotidine 20 MG Tablet PO ×2 (08:01→22:19)
[2018-05-08] MEDS: Montelukast 10 MG Tablet PO (08:01)
[2018-05-08] MEDS: oxyCODONE 5 MG Tablet PO ×2 (08:08→19:09)
--- NOTE | 2018-05-08 08:16 | PN_ITS ---
Patient Problems: Active and Suspected Problems Sepsis (Acute) Acute and chronic respiratory failure with hypoxia (Acute) COPD exacerbation (Acute) Pneumonia (Acute) Subjective: Patient did okay overnight. Patient does report unrestful sleep secondary to a lack of trazodone and Requip as he uses at home. Patient feels subjectively improved compared to previous, but is still having dyspnea on minimal exertion. Patient continues to have a cough that is intermittently productive. Lower extremity edema is subjectively improved compared to previous. Objective: Echocardiogram was completed and shows an ejection fraction of 65% with moderate LVH. Unfortunately, pulmonary artery pressures could not be quantitated. - Physical Exam General: Alert, Oriented x3, Cooperative, - - Mild conversational dyspnea. Morbidly obese. HEENT: Atraumatic, PERRLA, EOMI, Normocephalic, - - No scleral icterus or injection noted. Oral: Moist Mucosa, No Gingival or Mucosal Lesions/ Ulcerations, - - Mallampati 4 Neck: Supple, No Nodes, Trachea Midline, JVD, Right Lungs: No rhonchi, No rales, Diminished, Wheezes, - - Increased AP diameter. No dullness to percussion. Cardiovascular: Regular rate, Regular Rhythm, Normal S1, Normal S2, No murmurs, No rub noted, No Gallop Abdomen: Bowel Sounds Present, Soft, Non Tender, Non-Distended, Obese Extremities: No cyanosis, Capillary Refill Less than 3 Seconds, Edema - 1-2+ lower extremity Skin: - - Venous stasis changes lower extremities Musculoskeletal: No Tenderness to Palpation of Joints or Extremities Lymphatic: No Cervical, Supraclavicular, or Inguinal Adenopathy Neurological: Cranial nerves II-XII grossly intact, Neuro grossly intact, Motor Exam 5/5 strength throughout Psych/Mental Status: Appropriate, Anxious Vital Signs Temp Pulse Resp BP Pulse Ox 36.7 C 90 18 133/76 H 93 05/08/18 07:53 05/08/18 07:53 05/08/18 07:57 05/08/18 07:53 05/08/18 07:53 Oxygen Flow Rate (L/min) 4 Oxygen Delivery Method Nasal Cannula Weight: 103.1 kg Body Mass Index (BMI) 40.2 Intake and Output for Last 24 Hours 05/06/18 05/07/18 05/08/18 23:59 23:59 23:59 Intake Total 1754 / 1754 1080 / 1080 620 / 620 Output Total 700 / 700 300 / 300 250 / 250 Balance 1054 / 1054 780 / 780 370 / 370 Microbiology Past 72 Hours 05/06/18 11:05 Gram Stain - Final Sputum, Expectorated/Coughed Respiratory Culture - Preliminary Alpha hemolytic organism 05/05/18 01:35 Respiratory Panel (PCR) - Final Mucosa - Nose 05/05/18 01:16 Streptococcus pneumoniae Antigen (M - Final Urine, Clean Catch 05/05/18 01:16 Legionella Antigen - Final Urine, Clean Catch Laboratory Tests Past 24 Hrs 05/07/18 05/08/18 05/08/18 15:00 05:20 05:20 WBC 10.8 RBC 4.64 Hgb 14.7 Hct 43.5 MCV 93.8 MCH 31.7 MCHC 33.8 RDW 14.0 RDW Differential 46.5 H Plt Count 237 MPV 10.1 Immature Gran % (Auto) 0.200 Neut % (Auto) 85.1 H Lymph % (Auto) 7.1 L [place] % (Auto) 7.6 Eos % (Auto) 0.0 Baso % (Auto) 0.0 Absolute Neuts (auto) 9.2 H Absolute Lymphs (auto) 0.77 L Total Counted Not Reportable Sodium 138 Potassium 4.7 Chloride 99 Carbon Dioxide 32.0 Anion Gap 7 BUN 20 H Creatinine 0.66 L Estim Creat Clear Calc 94.59 Est GFR (MDRD) Af Amer 158 Est GFR (MDRD) Non-Af 131 BUN/Creatinine Ratio 30.4 H Glucose 133 H Calcium 8.6 B-Natriuretic Peptide 45.5 Clinical Impression(s) from Imaging Studies Chest X-Ray 05/07/18 13:38 IMPRESSION: Slight increase in the right basilar infiltrate superimposed on bibasilar scarring. Electronically Signed: True Miranda MD at 15:36 EDT Tel [phone], Service support , Medical Necessity - Tobacco Use Smoking Status: Current some day smoker Tobacco Use: Cigarettes Assessment/Plan All Active Problems Sepsis (Acute) Acute and chronic respiratory failure with hypoxia (Acute) COPD exacerbation (Acute) Pneumonia (Acute) RECOMMENDATIONS: 1. Continue Solu-Medrol, empiric antibiotics 2. Empiric diuresis 3. Obtain echocardiogram and BNP 4. Wean oxygen as tolerated 5. Walking oximetry prior to discharge 6. Continue BiPAP nightly IMPRESSIONS: 1. Acute on chronic hypoxic respiratory failure secondary to possible right lower lobe pneumonia/COPD exacerbation Patient reportedly with advanced COPD by PFT criteria. No records are available for review at this time. Patient does use significant supplemental oxygen at baseline, but has required BiPAP rescue while in the hospital. Patient's elevated bicarbonate is suggestive of CO2 retention. Would obtain an ABG if patient started to have decreased mental status. Patient's leukocytosis appears to be responding well to antibiotic therapy. Patient tolerating increased steroid therapy. Possibly decrease steroid therapy tomorrow. 2. Possible congestive heart failure versus cor pulmonale Patient was significant swelling of the lower extremities over the last 3- 4 months. Clinical suspicion for at least cor pulmonale exacerbated by exertional hypoxemia. Patient may also have an element of congestive heart failure given comorbidities. Patient states he had a stress test that was normal in the past, but this is not available for review. Echocardiogram was unable to quantify right-sided heart pressures. Will give an empiric dose of diuretic therapy to see if this will help his oxygenation. 3. Morbid obesity/KARIN/anxiety/depression/chronic pain syndrome Complicates care, management, recovery and prognosis. Continue with baseline noninvasive therapy. Okay to continue with baseline medications from my perspective. Will add patient's trazodone and Requip from home medication list to assist with sleep. Code Visit Inpatient E&M: [id number] [place] [id number]
[2018-05-08] MEDS: Furosemide 40 MG Tablet PO (10:51)
--- NOTE | 2018-05-08 12:57 | PCM.PN.HOSP ---
Patient Problems: Active and Suspected Problems Sepsis (Acute) Acute and chronic respiratory failure with hypoxia (Acute) COPD exacerbation (Acute) Pneumonia (Acute) Subjective: The patient feeling slightly better. Bilateral lower leg edema but BNP is normal. Echo reviewed and shows EF 65% but was technically difficult study; could not assess diastolic function and RVSP Vitals/I&O's: Vital Signs Temp Pulse Resp BP Pulse Ox 98.1 F 84 16 133/76 H 95 05/08/18 07:53 05/08/18 12:22 05/08/18 10:48 05/08/18 07:53 05/08/18 10:48 Oxygen Flow Rate (L/min) 4 Oxygen Delivery Method Nasal Cannula Weight: 227 lb 4.745 oz Body Mass Index (BMI) 40.2 Intake and Output for Last 24 Hours 05/06/18 05/07/18 05/08/18 23:59 23:59 23:59 Intake Total 1754 / 1754 1080 / 1080 620 / 620 Output Total 700 / 700 300 / 300 250 / 250 Balance 1054 / 1054 780 / 780 370 / 370 General: Alert, Oriented x3, Cooperative HEENT: Atraumatic, PERRLA, EOMI, Normocephalic Neck: Supple, No JVD, Negative Carotid Bruits Lungs: Diminished, Rhonchi, Short of Breath - On mild exertion Cardiovascular: Regular rate, Normal S1, Normal S2, No murmurs Abdomen: Bowel Sounds Present, Soft, Non Tender, Non-Distended Extremities: Capillary Refill Less than 3 Seconds, Edema Skin: No rashes, No breakdown Musculoskeletal: No Tenderness to Palpation of Joints or Extremities Neurological: Cranial nerves II-XII grossly intact Psych/Mental Status: Normal Affect, Appropriate Microbiology Past 72 Hours 05/06/18 11:05 Sputum, Expectorated/Coughed Gram Stain - Final 05/06/18 11:05 Sputum, Expectorated/Coughed Respiratory Culture - Final 05/05/18 01:35 Mucosa - Nose Respiratory Panel (PCR) - Final Laboratory Results 05/07/18 15:00: B-Natriuretic Peptide 45.5 05/08/18 05:20: WBC 10.8, RBC 4.64, Hgb 14.7, Hct 43.5, MCV 93.8, MCH 31.7, MCHC 33.8, RDW 14.0, RDW Differential 46.5 H, Plt Count 237, MPV 10.1, Immature Gran % (Auto) 0.200, Neut % (Auto) 85.1 H, Lymph % (Auto) 7.1 L, Davis % (Auto) 7.6, Eos % (Auto) 0.0, Baso % (Auto) 0.0, Absolute Neuts (auto) 9.2 H, Absolute Lymphs (auto) 0.77 L, Total Counted Not Reportable 05/08/18 05:20: Sodium 138, Potassium 4.7, Chloride 99, Carbon Dioxide 32.0, Anion Gap 7, BUN 20 H, Creatinine 0.66 L, Estim Creat Clear Calc 94.59, Est GFR (MDRD) Af Amer 158, Est GFR (MDRD) Non-Af 131, BUN/Creatinine Ratio 30.4 H, Glucose 133 H, Calcium 8.6 Current Medications Acetaminophen (Tylenol) 650 mg PO Q6H PRN PRN PRN Reason: Mild Pain (scale 0-3)/T>100.7 Last Admin: 05/05/18 14:30 Dose: 650 mg Al Hydroxide/Mg Hydroxide (Mylanta Ii) 30 ml PO Q6H PRN PRN PRN Reason: Gastric burning Albuterol Sulfate (Ventolin Aerosols) 2.5 mg INHALATION Q2H PRN PRN PRN Reason: SHORTNESS OF BREATH Albuterol/Ipratropium (Duoneb) 3 ml INHALATION Q4H.RT [facility] Last Admin: 05/08/18 10:48 Dose: 3 ml Aspirin (Aspirin, Baby) 81 mg PO DAILY@0800 [facility] Last Admin: 05/08/18 08:00 Dose: 81 mg Baclofen (Lioresal) 20 mg PO BID [facility] Last Admin: 05/08/18 08:00 Dose: 20 mg Citalopram Hydrobromide (Celexa) 40 mg PO DAILY [facility] Last Admin: 05/08/18 08:00 Dose: Not Given Enoxaparin Sodium (Lovenox) 40 mg SC DAILY [facility] Last Admin: 05/08/18 08:00 Dose: 40 mg Famotidine (Pepcid) 20 mg PO BID [facility] Last Admin: 05/08/18 08:01 Dose: 20 mg Guaifenesin (Mucinex) 1,200 mg PO BID [facility] Last Admin: 05/08/18 08:01 Dose: Not Given Ceftriaxone Sodium 2 gm/ (Dextrose) 50 mls @ 100 mls/hr IV Q24 [facility] Last Admin: 05/08/18 08:08 Dose: 100 mls/hr Lorazepam (Ativan) 0.5 mg PO BID PRN PRN PRN Reason: ANXIETY Last Admin: 05/07/18 22:43 Dose: 0.5 mg Magnesium Hydroxide (Milk Of Magnesia) 30 ml PO DAILY PRN PRN Reason: Constipation Methylprednisolone (Solu-Medrol) 40 mg IV Q6 [facility] Last Admin: 05/08/18 10:52 Dose: 40 mg Montelukast Sodium (Singulair) 10 mg PO DAILY [facility] Last Admin: 05/08/18 08:01 Dose: 10 mg Nicotine (Nicoderm Cq (Pbkc)) 21 mg TRANSDERM. DAILY [facility] Last Admin: 05/08/18 08:01 Dose: 21 mg Ondansetron HCl (Zofran) 4 mg IV Q8H PRN PRN PRN Reason: NAUSEA Oxycodone HCl (Oxyir) 5 mg PO Q6H PRN PRN PRN Reason: PAIN Last Admin: 05/08/18 08:08 Dose: 5 mg Pramipexole Dihydrochloride (Mirapex) 0.25 mg PO QHS [facility] Promethazine HCl (Phenergan) 12.5 mg IV Q6H PRN PRN PRN Reason: NAUSEA/VOMITING Sodium Chloride () 5 - 30 ml IV UD PRN PRN Reason: SALINE FLUSH Last Admin: 05/08/18 11:02 Dose: 10 ml Tamsulosin HCl (Flomax) 0.4 mg PO BID [facility] Last Admin: 05/08/18 08:00 Dose: 0.4 mg Trazodone HCl (Desyrel) 100 mg PO QHS [facility] Medical Necessity - Tobacco Use Smoking Status: Current some day smoker Tobacco Use: Cigarettes Assessment/Plan All Active Problems Sepsis (Acute) Acute and chronic respiratory failure with hypoxia (Acute) COPD exacerbation (Acute) Pneumonia (Acute) The patient is a 62 y/o M with history of chronic hypoxic respiratory failure on 4-5 L of oxygen through nasal cannula at home, morbid obesity, KARIN,BPH, Anxiety and Depression was admitted with fever, chills, nonproductive cough, progressive worsening of shortness of breath or 1 day consistent with acute on chronic COPD exacerbation 1. Acute on chronic hypoxic and hypercarbic combined respiratory failure secondary to COPD exacerbation and possible pneumonia: Oxygen support to keep pulse ox 90%. BiPAP at night. No significant improvement with regard to hypoxia/dyspnea. Pulmonary consult reviewed and appreciated. 2.COPD exacerbation exacerbation most probably from viral bronchitis/pneumonia: Respiratory panel is negative. Urinary antigens are negative. Continue DuoNeb every 4 hourly, IV Solu-Medrol, incentive spirometry, mucolytic and oxygen support. Leukocytosis persistent probably secondary to steroid. 3. Possible right middle lobe/right lower lobe community-acquired pneumonia. Patient has clinical symptoms of pneumonia including fever, tachypnea, shortness of breath. Chest x-ray raises shows density in the right lung base and superimposed infiltrate cannot be excluded therefore suspicion of community-acquired pneumonia. Continue IV ceftriaxone. Final sputum culture reported as mixed normal respiratory matthew. No haemophilus, streptococcus pneumoniae, beta-hemolytic Streptococcus or staph aureus isolated. Repeat chest x-ray PA and lateral reviewed and agree with the report of increased right basilar infiltrate superimposed on bibasilar scarring. 4. Bilateral lower leg edema: BNP is normal. 2D echo was done and reported as EF 65% with moderate concentric LVH but it was technically difficult study therefore could not assess diastolic function or estimate RVSP. Trivial TR. there is suspicion he might have pulmonary hypertension. Empirically on Lasix. Morbid obesity. emphasized lifestyle modifications 4. KARIN. Continue CPAP on home settings DVT prophylaxis: On Lovenox Microbiology Past 72 Hours 05/06/18 11:05 Sputum, Expectorated/Coughed Gram Stain - Final 05/06/18 11:05 Sputum, Expectorated/Coughed Respiratory Culture - Final 05/04/18 21:58 Blood Culture (Wb) - Anticubital Left Blood Culture - Preliminary No growth in 48 hours. 05/04/18 21:58 Blood Culture (Wb) - Arm Right Blood Culture - Preliminary No growth in 48 hours. Laboratory Results 05/07/18 15:00: B-Natriuretic Peptide 45.5 05/08/18 05:20: WBC 10.8, RBC 4.64, Hgb 14.7, Hct 43.5, MCV 93.8, MCH 31.7, MCHC 33.8, RDW 14.0, RDW Differential 46.5 H, Plt Count 237, MPV 10.1, Immature Gran % (Auto) 0.200, Neut % (Auto) 85.1 H, Lymph % (Auto) 7.1 L, Davis % (Auto) 7.6, Eos % (Auto) 0.0, Baso % (Auto) 0.0, Absolute Neuts (auto) 9.2 H, Absolute Lymphs (auto) 0.77 L, Total Counted Not Reportable 05/08/18 05:20: Sodium 138, Potassium 4.7, Chloride 99, Carbon Dioxide 32.0, Anion Gap 7, BUN 20 H, Creatinine 0.66 L, Estim Creat Clear Calc 94.59, Est GFR (MDRD) Af Amer 158, Est GFR (MDRD) Non-Af 131, BUN/Creatinine Ratio 30.4 H, Glucose 133 H, Calcium 8.6 Clinical Impression(s) from Imaging Studies Chest X-Ray 05/04/18 21:45 IMPRESSION: Chronic interstitial changes. Cannot exclude coexisting right lower lobe pneumonia. Left pleural thickening or tiny effusion with mild basilar atelectasis. Chest X-Ray 05/07/18 13:38 IMPRESSION: Slight increase in the right basilar infiltrate superimposed on bibasilar scarring. Active Medications Acetaminophen (Tylenol) 650 mg PO Q6H PRN PRN PRN Reason: Mild Pain (scale 0-3)/T>100.7 Last Admin: 05/05/18 14:30 Dose: 650 mg Al Hydroxide/Mg Hydroxide (Mylanta Ii) 30 ml PO Q6H PRN PRN PRN Reason: Gastric burning Albuterol Sulfate (Ventolin Aerosols) 2.5 mg INHALATION Q2H PRN PRN PRN Reason: SHORTNESS OF BREATH Albuterol/Ipratropium (Duoneb) 3 ml INHALATION Q4H.RT [facility] Last Admin: 05/08/18 15:05 Dose: 3 ml Aspirin (Aspirin, Baby) 81 mg PO DAILY@0800 [facility] Last Admin: 05/08/18 08:00 Dose: 81 mg Baclofen (Lioresal) 20 mg PO BID [facility] Last Admin: 05/08/18 08:00 Dose: 20 mg Citalopram Hydrobromide (Celexa) 40 mg PO DAILY [facility] Last Admin: 05/08/18 08:00 Dose: Not Given Enoxaparin Sodium (Lovenox) 40 mg SC DAILY [facility] Last Admin: 05/08/18 08:00 Dose: 40 mg Famotidine (Pepcid) 20 mg PO BID [facility] Last Admin: 05/08/18 08:01 Dose: 20 mg Guaifenesin (Mucinex) 1,200 mg PO BID [facility] Last Admin: 05/08/18 08:01 Dose: Not Given Ceftriaxone Sodium 2 gm/ (Dextrose) 50 mls @ 100 mls/hr IV Q24 [facility] Last Admin: 05/08/18 08:08 Dose: 100 mls/hr Lorazepam (Ativan) 0.5 mg PO BID PRN PRN PRN Reason: ANXIETY Last Admin: 05/07/18 22:43 Dose: 0.5 mg Magnesium Hydroxide (Milk Of Magnesia) 30 ml PO DAILY PRN PRN Reason: Constipation Methylprednisolone (Solu-Medrol) 40 mg IV Q6 [facility] Last Admin: 05/08/18 10:52 Dose: 40 mg Montelukast Sodium (Singulair) 10 mg PO DAILY [facility] Last Admin: 05/08/18 08:01 Dose: 10 mg Nicotine (Nicoderm Cq (Pbkc)) 21 mg TRANSDERM. DAILY [facility] Last Admin: 05/08/18 08:01 Dose: 21 mg Ondansetron HCl (Zofran) 4 mg IV Q8H PRN PRN PRN Reason: NAUSEA Oxycodone HCl (Oxyir) 5 mg PO Q6H PRN PRN PRN Reason: PAIN Last Admin: 05/08/18 08:08 Dose: 5 mg Pramipexole Dihydrochloride (Mirapex) 0.25 mg PO QHS [facility] Promethazine HCl (Phenergan) 12.5 mg IV Q6H PRN PRN PRN Reason: NAUSEA/VOMITING Sodium Chloride () 5 - 30 ml IV UD PRN PRN Reason: SALINE FLUSH Last Admin: 05/08/18 11:02 Dose: 10 ml Tamsulosin HCl (Flomax) 0.4 mg PO BID [facility] Last Admin: 05/08/18 08:00 Dose: 0.4 mg Trazodone HCl (Desyrel) 100 mg PO QHS [facility] Code Visit Inpatient E&M: [id number] [facility]
[2018-05-08] MEDS: LORazepam 0.5 MG Tablet PO (22:16)
[2018-05-08] MEDS: Acetaminophen 325 MG Tablet 650 MG PO (22:17)
[2018-05-08] MEDS: traZODone 100 MG Tablet PO (22:17)
[2018-05-08] MEDS: Pramipexole Di-HCl 0.25 MG Tablet PO (22:18)
[2018-05-08] MEDS: guaiFENesin 1,200 MG Tablet 1200 MG PO (22:19)
--- NOTE | 2018-05-08 23:10 | CPS ---
patient seen by rt for bipap setup. patient requested to wait until 2400 after his prednisone shot.
[2018-05-09] VITALS (19 sets, daily range): BP systolic 121–139; BP diastolic 61–86; PULSE 81–114; RESP 12–20; TEMP 36.6–36.9; O2SAT 94–97
[2018-05-09] MEDS: Ipratropium/Albuterol Sulfate 3 ML AMPUL.NEB INHALATION ×6 (02:58→23:05)
[2018-05-09] MEDS: oxyCODONE 5 MG Tablet PO ×3 (04:19→22:47)
[2018-05-09] MEDS: 0.9% NaCl Peripheral Flush Adult/Peds IV ×2 (05:56→22:47)
[2018-05-09] MEDS: Aspirin 81 MG TAB.CHEW PO (08:54)
[2018-05-09] MEDS: ROFLUMILAST 500 MCG TABLET PO (08:56)
[2018-05-09] MEDS: Tamsulosin HCl 0.4 MG Capsule PO ×2 (08:57→22:42)
[2018-05-09] MEDS: guaiFENesin 1,200 MG Tablet 1200 MG PO ×2 (08:59→22:42)
[2018-05-09] MEDS: Enoxaparin 40 MG/0.4 ML Syringe SC (08:59)
[2018-05-09] MEDS: Montelukast 10 MG Tablet PO (09:00)
--- NOTE | 2018-05-09 11:55 | PN_ITS ---
Patient Problems: Active and Suspected Problems Sepsis (Acute) Acute and chronic respiratory failure with hypoxia (Acute) COPD exacerbation (Acute) Pneumonia (Acute) - Physical Exam General: Alert, Oriented x3, Cooperative, - - Mild respiratory distress. Morbidly obese HEENT: Atraumatic, PERRLA, EOMI, Normocephalic, - - NC in place Oral: Moist Mucosa, No Gingival or Mucosal Lesions/ Ulcerations Neck: Supple, No JVD, No Nodes, Trachea Midline Lungs: No rhonchi, No wheeze, No rales, Diminished, - - Evidently increased AP diameter Cardiovascular: Regular rate, Regular Rhythm, Normal S1, Normal S2, No murmurs, No rub noted, No Gallop Abdomen: Bowel Sounds Present, Soft, Non Tender, Non-Distended, Obese Extremities: No cyanosis, Capillary Refill Less than 3 Seconds, Clubbing, Edema - 2+ lower extremity edema Skin: - - No significant change compared to previous Musculoskeletal: No Tenderness to Palpation of Joints or Extremities, No Muscle Wasting Lymphatic: No Cervical, Supraclavicular, or Inguinal Adenopathy Neurological: Cranial nerves II-XII grossly intact, Neuro grossly intact, Motor Exam 5/5 strength throughout Psych/Mental Status: Alert and oriented to time, place, person, mood and affect Vital Signs Temp Pulse Resp BP Pulse Ox 36.9 C 96 16 139/86 H 95 05/09/18 09:38 05/09/18 11:11 05/09/18 11:09 05/09/18 09:38 05/09/18 09:38 Oxygen Flow Rate (L/min) 6 Oxygen Delivery Method Nasal Cannula Weight: 103.1 kg Body Mass Index (BMI) 40.2 Intake and Output for Last 24 Hours 05/07/18 05/08/18 05/09/18 23:59 23:59 23:59 Intake Total 1080 / 1080 1012 / 1012 1135 / 1135 Output Total 300 / 300 350 / 350 750 / 750 Balance 780 / 780 662 / 662 385 / 385 Microbiology Past 72 Hours 05/06/18 11:05 Gram Stain - Final Sputum, Expectorated/Coughed Respiratory Culture - Final Medical Necessity - Tobacco Use Smoking Status: Current some day smoker Tobacco Use: Cigarettes Assessment/Plan All Active Problems Sepsis (Acute) Acute and chronic respiratory failure with hypoxia (Acute) COPD exacerbation (Acute) Pneumonia (Acute) RECOMMENDATIONS: 1. Continue Solu-Medrol, okay to discontinue antibiotics from my perspective 2. Empiric diuresis 3. Increase activity as tolerated 4. Wean oxygen as tolerated 5. Walking oximetry prior to discharge 6. Continue BiPAP nightly IMPRESSIONS: 1. Acute on chronic hypoxic respiratory failure secondary to possible right lower lobe pneumonia/COPD exacerbation Patient reportedly with advanced COPD by PFT criteria. No records are available for review at this time. Patient does use significant supplemental oxygen at baseline, but has required BiPAP rescue while in the hospital. Patient's elevated bicarbonate is suggestive of CO2 retention. Will decrease patient's steroids today. In order to be discharged, patient will need to be able to ambulate with less than 6 L/min nasal cannula oxygen. 2. Possible congestive heart failure versus cor pulmonale Patient was significant swelling of the lower extremities over the last 3- 4 months. Clinical suspicion for at least cor pulmonale exacerbated by exertional hypoxemia. Patient may also have an element of congestive heart failure given comorbidities. Patient states he had a stress test that was normal in the past, but this is not available for review. Echocardiogram was unable to quantify right-sided heart pressures. Patient given Lasix yesterday, but overall fluid balance was actually positive. Will give 2 doses of Lasix today. Check electrolytes for tomorrow to see if potassium supplementation would be required. 3. Morbid obesity/KARIN/anxiety/depression/chronic pain syndrome Complicates care, management, recovery and prognosis. Continue with baseline noninvasive therapy. Okay to continue with baseline medications from my perspective. Will add patient's trazodone and Requip from home medication list to assist with sleep. Code Visit Inpatient E&M: 74492 Subs Hosp L2
[2018-05-09] MEDS: Furosemide 40 MG Tablet PO ×2 (12:50→16:27)
--- NOTE | 2018-05-09 17:03 | NURSING ---
reviewed charting from nursing instructor, this RN agrees with charting
--- NOTE | 2018-05-09 17:36 | PCM.PN.HOSP ---
Patient Problems: Active and Suspected Problems Sepsis (Acute) Acute and chronic respiratory failure with hypoxia (Acute) COPD exacerbation (Acute) Pneumonia (Acute) Subjective: Seen and examined. Patient feels subjective improvement with regard to breathing and leg swelling. No fever. On BiPAP at night. On oxygen during day. Still gets easily short of breath on mild exertion Vitals/I&O's: Vital Signs Temp Pulse Resp BP Pulse Ox 98.1 F 101 H 20 H 121/81 H 94 05/09/18 15:27 05/09/18 15:28 05/09/18 15:28 05/09/18 15:27 05/09/18 15:27 Oxygen Flow Rate (L/min) 4 Oxygen Delivery Method Nasal Cannula Weight: 227 lb 4.745 oz Body Mass Index (BMI) 40.2 Intake and Output for Last 24 Hours 05/07/18 05/08/18 05/09/18 23:59 23:59 23:59 Intake Total 1080 / 1080 1012 / 1012 1135 / 1135 Output Total 300 / 300 350 / 350 750 / 750 Balance 780 / 780 662 / 662 385 / 385 General: Alert, Oriented x3, Cooperative HEENT: Atraumatic, PERRLA, EOMI, Normocephalic Neck: Supple, No JVD, Negative Carotid Bruits Lungs: Diminished, Rhonchi, Short of Breath Cardiovascular: Regular rate, Normal S1, Normal S2, No murmurs Abdomen: Bowel Sounds Present, Soft, Non Tender, Non-Distended Extremities: Capillary Refill Less than 3 Seconds, Edema Skin: No rashes, No breakdown Musculoskeletal: No Tenderness to Palpation of Joints or Extremities Neurological: Cranial nerves II-XII grossly intact Psych/Mental Status: Normal Affect, Appropriate Microbiology Past 72 Hours 05/06/18 11:05 Sputum, Expectorated/Coughed Gram Stain - Final 05/06/18 11:05 Sputum, Expectorated/Coughed Respiratory Culture - Final Current Medications Acetaminophen (Tylenol) 650 mg PO Q6H PRN PRN PRN Reason: Mild Pain (scale 0-3)/T>100.7 Last Admin: 05/08/18 22:17 Dose: 650 mg Al Hydroxide/Mg Hydroxide (Mylanta Ii) 30 ml PO Q6H PRN PRN PRN Reason: Gastric burning Albuterol Sulfate (Ventolin Aerosols) 2.5 mg INHALATION Q2H PRN PRN PRN Reason: SHORTNESS OF BREATH Albuterol/Ipratropium (Duoneb) 3 ml INHALATION Q4H.RT [facility] Last Admin: 05/09/18 15:04 Dose: 3 ml Aspirin (Aspirin, Baby) 81 mg PO DAILY@0800 [facility] Last Admin: 05/09/18 08:54 Dose: 81 mg Baclofen (Lioresal) 20 mg PO BID [facility] Last Admin: 05/09/18 08:57 Dose: Not Given Citalopram Hydrobromide (Celexa) 40 mg PO DAILY [facility] Last Admin: 05/09/18 08:55 Dose: Not Given Enoxaparin Sodium (Lovenox) 40 mg SC DAILY [facility] Last Admin: 05/09/18 08:59 Dose: 40 mg Famotidine (Pepcid) 20 mg PO BID [facility] Last Admin: 05/09/18 09:00 Dose: Not Given Furosemide (Lasix) 40 mg PO BID@1000,1800 [facility] Stop: 05/09/18 18:01 Last Admin: 05/09/18 16:27 Dose: 40 mg Guaifenesin (Mucinex) 1,200 mg PO BID [facility] Last Admin: 05/09/18 08:59 Dose: 1,200 mg Ceftriaxone Sodium 2 gm/ (Dextrose) 50 mls @ 100 mls/hr IV Q24 [facility] Last Admin: 05/09/18 10:35 Dose: 100 mls/hr Lorazepam (Ativan) 0.5 mg PO BID PRN PRN PRN Reason: ANXIETY Last Admin: 05/08/18 22:16 Dose: 0.5 mg Magnesium Hydroxide (Milk Of Magnesia) 30 ml PO DAILY PRN PRN Reason: Constipation Methylprednisolone (Solu-Medrol) 40 mg IV Q8 [facility] Last Admin: 05/09/18 16:28 Dose: 40 mg Montelukast Sodium (Singulair) 10 mg PO DAILY [facility] Last Admin: 05/09/18 09:00 Dose: 10 mg Nicotine (Nicoderm Cq (Pbkc)) 21 mg TRANSDERM. DAILY [facility] Last Admin: 05/09/18 08:59 Dose: 21 mg Ondansetron HCl (Zofran) 4 mg IV Q8H PRN PRN PRN Reason: NAUSEA Oxycodone HCl (Oxyir) 5 mg PO Q6H PRN PRN PRN Reason: PAIN Last Admin: 05/09/18 11:19 Dose: 5 mg Pramipexole Dihydrochloride (Mirapex) 0.25 mg PO QHS [facility] Last Admin: 05/08/18 22:18 Dose: 0.25 mg Promethazine HCl (Phenergan) 12.5 mg IV Q6H PRN PRN PRN Reason: NAUSEA/VOMITING Sodium Chloride () 5 - 30 ml IV UD PRN PRN Reason: SALINE FLUSH Last Admin: 05/09/18 05:56 Dose: 10 ml Tamsulosin HCl (Flomax) 0.4 mg PO BID [facility] Last Admin: 05/09/18 08:57 Dose: 0.4 mg Trazodone HCl (Desyrel) 100 mg PO QHS [facility] Last Admin: 05/08/18 22:17 Dose: 100 mg Medical Necessity - Tobacco Use Smoking Status: Current some day smoker Tobacco Use: Cigarettes Assessment/Plan All Active Problems Sepsis (Acute) Acute and chronic respiratory failure with hypoxia (Acute) COPD exacerbation (Acute) Pneumonia (Acute) The patient is a 62 y/o M with history of chronic hypoxic respiratory failure on 4-5 L of oxygen through nasal cannula at home, morbid obesity, KARIN,BPH, Anxiety and Depression was admitted with fever, chills, nonproductive cough, progressive worsening of shortness of breath or 1 day consistent with acute on chronic COPD exacerbation 1. Acute on chronic hypoxic and hypercarbic combined respiratory failure secondary to COPD exacerbation and possible pneumonia: Oxygen support to keep pulse ox 90%. BiPAP at night. No significant improvement with regard to hypoxia/dyspnea. Pulmonary consult reviewed and appreciated. 2.COPD exacerbation exacerbation most probably from viral bronchitis/pneumonia: Respiratory panel is negative. Urinary antigens are negative. Continue DuoNeb every 4 hourly, IV Solu-Medrol, incentive spirometry, mucolytic and oxygen support. Leukocytosis persistent probably secondary to steroid. 3. Possible right middle lobe/right lower lobe community-acquired pneumonia. Patient has clinical symptoms of pneumonia including fever, tachypnea, shortness of breath. Chest x-ray raises shows density in the right lung base and superimposed infiltrate cannot be excluded therefore suspicion of community-acquired pneumonia. Continue IV ceftriaxone. Final sputum culture reported as mixed normal respiratory matthew. No haemophilus, streptococcus pneumoniae, beta-hemolytic Streptococcus or staph aureus isolated. Repeat chest x-ray PA and lateral reviewed and agree with the report of increased right basilar infiltrate superimposed on bibasilar scarring. Patient had 6 days of IV antibiotics. We will stop the antibiotic 4. Bilateral lower leg edema: BNP is normal. 2D echo was done and reported as EF 65% with moderate concentric LVH but it was technically difficult study therefore could not assess diastolic function or estimate RVSP. Trivial TR. there is suspicion he might have pulmonary hypertension. On Lasix 40 mg twice daily Morbid obesity. emphasized lifestyle modifications 4. KARIN. Continue CPAP on home settings DVT prophylaxis: On Lovenox Microbiology Past 72 Hours 05/06/18 11:05 Sputum, Expectorated/Coughed Gram Stain - Final 05/06/18 11:05 Sputum, Expectorated/Coughed Respiratory Culture - Final 05/04/18 21:58 Blood Culture (Wb) - Anticubital Left Blood Culture - Preliminary No growth in 48 hours. 05/04/18 21:58 Blood Culture (Wb) - Arm Right Blood Culture - Preliminary No growth in 48 hours. Laboratory Results 05/07/18 15:00: B-Natriuretic Peptide 45.5 05/08/18 05:20: WBC 10.8, RBC 4.64, Hgb 14.7, Hct 43.5, MCV 93.8, MCH 31.7, MCHC 33.8, RDW 14.0, RDW Differential 46.5 H, Plt Count 237, MPV 10.1, Immature Gran % (Auto) 0.200, Neut % (Auto) 85.1 H, Lymph % (Auto) 7.1 L, [place] % (Auto) 7.6, Eos % (Auto) 0.0, Baso % (Auto) 0.0, Absolute Neuts (auto) 9.2 H, Absolute Lymphs (auto) 0.77 L, Total Counted Not Reportable 05/08/18 05:20: Sodium 138, Potassium 4.7, Chloride 99, Carbon Dioxide 32.0, Anion Gap 7, BUN 20 H, Creatinine 0.66 L, Estim Creat Clear Calc 94.59, Est GFR (MDRD) Af Amer 158, Est GFR (MDRD) Non-Af 131, BUN/Creatinine Ratio 30.4 H, Glucose 133 H, Calcium 8.6 Clinical Impression(s) from Imaging Studies Chest X-Ray 05/04/18 21:45 IMPRESSION: Chronic interstitial changes. Cannot exclude coexisting right lower lobe pneumonia. Left pleural thickening or tiny effusion with mild basilar atelectasis. Chest X-Ray 05/07/18 13:38 IMPRESSION: Slight increase in the right basilar infiltrate superimposed on bibasilar scarring. Active Medications Acetaminophen (Tylenol) 650 mg PO Q6H PRN PRN PRN Reason: Mild Pain (scale 0-3)/T>100.7 Last Admin: 05/05/18 14:30 Dose: 650 mg Al Hydroxide/Mg Hydroxide (Mylanta Ii) 30 ml PO Q6H PRN PRN PRN Reason: Gastric burning Albuterol Sulfate (Ventolin Aerosols) 2.5 mg INHALATION Q2H PRN PRN PRN Reason: SHORTNESS OF BREATH Albuterol/Ipratropium (Duoneb) 3 ml INHALATION Q4H.RT [facility] Last Admin: 05/08/18 15:05 Dose: 3 ml Aspirin (Aspirin, Baby) 81 mg PO DAILY@0800 [facility] Last Admin: 05/08/18 08:00 Dose: 81 mg Baclofen (Lioresal) 20 mg PO BID [facility] Last Admin: 05/08/18 08:00 Dose: 20 mg Citalopram Hydrobromide (Celexa) 40 mg PO DAILY [facility] Last Admin: 05/08/18 08:00 Dose: Not Given Enoxaparin Sodium (Lovenox) 40 mg SC DAILY [facility] Last Admin: 05/08/18 08:00 Dose: 40 mg Famotidine (Pepcid) 20 mg PO BID [facility] Last Admin: 05/08/18 08:01 Dose: 20 mg Guaifenesin (Mucinex) 1,200 mg PO BID [facility] Last Admin: 05/08/18 08:01 Dose: Not Given Ceftriaxone Sodium 2 gm/ (Dextrose) 50 mls @ 100 mls/hr IV Q24 [facility] Last Admin: 05/08/18 08:08 Dose: 100 mls/hr Lorazepam (Ativan) 0.5 mg PO BID PRN PRN PRN Reason: ANXIETY Last Admin: 05/07/18 22:43 Dose: 0.5 mg Magnesium Hydroxide (Milk Of Magnesia) 30 ml PO DAILY PRN PRN Reason: Constipation Methylprednisolone (Solu-Medrol) 40 mg IV Q6 [facility] Last Admin: 05/08/18 10:52 Dose: 40 mg Montelukast Sodium (Singulair) 10 mg PO DAILY [facility] Last Admin: 05/08/18 08:01 Dose: 10 mg Nicotine (Nicoderm Cq (Pbkc)) 21 mg TRANSDERM. DAILY [facility] Last Admin: 05/08/18 08:01 Dose: 21 mg Ondansetron HCl (Zofran) 4 mg IV Q8H PRN PRN PRN Reason: NAUSEA Oxycodone HCl (Oxyir) 5 mg PO Q6H PRN PRN PRN Reason: PAIN Last Admin: 05/08/18 08:08 Dose: 5 mg Pramipexole Dihydrochloride (Mirapex) 0.25 mg PO QHS [facility] Promethazine HCl (Phenergan) 12.5 mg IV Q6H PRN PRN PRN Reason: NAUSEA/VOMITING Sodium Chloride () 5 - 30 ml IV UD PRN PRN Reason: SALINE FLUSH Last Admin: 05/08/18 11:02 Dose: 10 ml Tamsulosin HCl (Flomax) 0.4 mg PO BID [facility] Last Admin: 05/08/18 08:00 Dose: 0.4 mg Trazodone HCl (Desyrel) 100 mg PO QHS [facility] Code Visit Inpatient E&M: 45009 Subs Hosp L3
[2018-05-09] MEDS: Acetaminophen 325 MG Tablet 650 MG PO (18:41)
[2018-05-09] MEDS: Pramipexole Di-HCl 0.25 MG Tablet PO (22:40)
[2018-05-09] MEDS: Famotidine 20 MG Tablet PO (22:42)
[2018-05-09] MEDS: Baclofen 10 MG Tablet 20 MG PO (22:42)
[2018-05-09] MEDS: traZODone 100 MG Tablet PO (22:43)
[2018-05-09] MEDS: LORazepam 0.5 MG Tablet PO (22:54)
[2018-05-10] VITALS (21 sets, daily range): BP systolic 113–138; BP diastolic 67–89; PULSE 81–110; RESP 12–22; TEMP 36.1–37.2; O2SAT 92–98
[2018-05-10] MEDS: Ipratropium/Albuterol Sulfate 3 ML AMPUL.NEB INHALATION ×6 (02:15→23:13)
[2018-05-10] MEDS: oxyCODONE 5 MG Tablet PO ×2 (06:22→21:37)
[2018-05-10] MEDS: 0.9% NaCl Peripheral Flush Adult/Peds IV ×3 (06:26→21:45)
[2018-05-10 06:49] LABS: Anion Gap 5 (5-15); BUN 31 mg/dL (7-18); BUN/Creat Ratio 44.8 RATIO (10-20); Calcium,Total 8.6 mg/dL (8.5-10.1); Chloride 99 mmol/L (98-107); Creatinine, Serum 0.69 mg/dL (0.70-1.30); EST Glomerular Filtration Rate 123 mL/min (>60); Est Glom Filt Rate - Afr Amer 149 mL/min (>60); Estimated Creatinine Clearance 90.48 ml/min; Glucose 144 mg/dL (74-106); Potassium 4.3 mmol/L (3.5-5.1); Sodium Level 140 mmol/L (136-145)
[2018-05-10] MEDS: Aspirin 81 MG TAB.CHEW PO (08:21)
[2018-05-10] MEDS: ROFLUMILAST 500 MCG TABLET PO (09:21)
[2018-05-10] MEDS: Enoxaparin 40 MG/0.4 ML Syringe SC (09:23)
[2018-05-10] MEDS: Tamsulosin HCl 0.4 MG Capsule PO ×2 (09:23→21:38)
[2018-05-10] MEDS: guaiFENesin 1,200 MG Tablet 1200 MG PO ×2 (09:24→21:38)
[2018-05-10] MEDS: Montelukast 10 MG Tablet PO (09:26)
[2018-05-10] MEDS: LORazepam 0.5 MG Tablet PO ×2 (09:28→21:45)
[2018-05-10] MEDS: Acetaminophen 325 MG Tablet 650 MG PO ×2 (09:29→17:32)
--- NOTE | 2018-05-10 11:10 | PN_ITS ---
Patient Problems: Active and Suspected Problems Sepsis (Acute) Acute and chronic respiratory failure with hypoxia (Acute) COPD exacerbation (Acute) Pneumonia (Acute) Subjective: Patient did well overnight. No acute issues were reported. Patient feels subjectively improved compared to previous. Patient feels his lower extremity edema continues to improve. Patient does have some dyspnea on exertion. - Physical Exam General: Alert, Oriented x3, Cooperative, - - Mild conversational dyspnea. Morbidly obese. HEENT: Atraumatic, PERRLA, EOMI, Normocephalic, - - Slight scleral injection without icterus. Nasal strip in place. Oral: Moist Mucosa, No Gingival or Mucosal Lesions/ Ulcerations Neck: Supple, No JVD, No Nodes, Trachea Midline Lungs: No rhonchi, No rales, Diminished, Wheezes, - - Symmetric expansion. No dullness to percussion. Cardiovascular: Normal S1, Normal S2, Murmur, No rub noted, No Gallop Abdomen: Bowel Sounds Present, Soft, Non Tender, Non-Distended, Obese Extremities: No cyanosis, Clubbing, Edema - Continues to improve Skin: - - No significant change compared to previous Musculoskeletal: No Tenderness to Palpation of Joints or Extremities, No Muscle Wasting Lymphatic: No Cervical, Supraclavicular, or Inguinal Adenopathy Neurological: Cranial nerves II-XII grossly intact, Neuro grossly intact, Motor Exam 5/5 strength throughout Psych/Mental Status: Appropriate, Anxious Vital Signs Temp Pulse Resp BP Pulse Ox 36.8 C 87 20 H 138/89 H 98 05/10/18 06:30 05/10/18 07:19 05/10/18 09:57 05/10/18 06:30 05/10/18 06:46 Oxygen Flow Rate (L/min) 4 Oxygen Delivery Method Nasal Cannula Weight: 103.1 kg Body Mass Index (BMI) 40.2 Intake and Output for Last 24 Hours 05/08/18 05/09/18 05/10/18 23:59 23:59 23:59 Intake Total 1012 / 1012 2065 / 2065 120 / 120 Output Total 350 / 350 750 / 750 Balance 662 / 662 1315 / 1315 120 / 120 Microbiology Past 72 Hours 05/06/18 11:05 Gram Stain - Final Sputum, Expectorated/Coughed Respiratory Culture - Final Laboratory Tests Past 24 Hrs 05/10/18 05:20 Sodium 140 Potassium 4.3 Chloride 99 Carbon Dioxide 36.0 H Anion Gap 5 BUN 31 H Creatinine 0.69 L Estim Creat Clear Calc 90.48 Est GFR (MDRD) Af Amer 149 Est GFR (MDRD) Non-Af 123 BUN/Creatinine Ratio 44.8 H Glucose 144 H Calcium 8.6 Medical Necessity - Tobacco Use Smoking Status: Current some day smoker Tobacco Use: Cigarettes Assessment/Plan All Active Problems Sepsis (Acute) Acute and chronic respiratory failure with hypoxia (Acute) COPD exacerbation (Acute) Pneumonia (Acute) RECOMMENDATIONS: 1. Wean Solu-Medrol, okay to discontinue antibiotics from my perspective 2. Continue empiric diuresis 3. Increase activity as tolerated 4. Wean oxygen as tolerated 5. Walking oximetry prior to discharge 6. Continue BiPAP nightly IMPRESSIONS: 1. Acute on chronic hypoxic respiratory failure secondary to possible right lower lobe pneumonia/COPD exacerbation Patient reportedly with advanced COPD by PFT criteria. No records are available for review at this time. Patient does use significant supplemental oxygen at baseline, but has required BiPAP rescue while in the hospital. Patient's elevated bicarbonate is suggestive of CO2 retention. Will decrease patient's steroids today. In order to be discharged, patient will need to be able to ambulate with less than 6 L/min nasal cannula oxygen. Will order a walking oximetry for evaluation. 2. Possible congestive heart failure versus cor pulmonale Patient was significant swelling of the lower extremities over the last 3- 4 months. Clinical suspicion for at least cor pulmonale exacerbated by exertional hypoxemia. Patient may also have an element of congestive heart failure given comorbidities. Patient states he had a stress test that was normal in the past, but this is not available for review. Echocardiogram was unable to quantify right-sided heart pressures. Patient tolerating diuretic therapy well. Will repeat BMP tomorrow to make sure no electrolyte abnormalities or renal dysfunction is noted. 3. Morbid obesity/KARIN/anxiety/depression/chronic pain syndrome Complicates care, management, recovery and prognosis. Continue with baseline noninvasive therapy. Okay to continue with baseline medications from my perspective. Will add patient's trazodone and Requip from home medication list to assist with sleep. Code Visit Inpatient E&M: 59293 Subs Hosp L2
--- NOTE | 2018-05-10 11:29 | NURSING ---
ambulated on baseline o2 of 4L, dropped down to 89%, then went up to 94%
[2018-05-10] MEDS: Furosemide 20 MG Tablet PO ×2 (11:50→17:33)
--- NOTE | 2018-05-10 12:11 | CASEMGMT ---
Therapy is recommending [facility] for pt at this time. Pt is aware and agrees to RN/PT/OT thru [facility] at this time. [facility] states they will be able to take pt for further services. Order and discharge instructions/summary to be faxed to [facility] when available. Pt states concerns with transportation home. When asked if he has family/friends to transport, pt states 'not really.' Pt inquires about van transport home and advised pt that depending on discharge date van transport is not available on the weekends, voices understanding. This SHAYY WEINER asked pt if pt has anyone to pick him up specifically and he states 'no one i trust.' Pt states has a portable tank here but unsure if it has enough oxygen to get home and advised pt that [facility] can be called to bring him a tank, if needed, voices understanding. Green sheet left on chart. [facility] WEIN[facility]
--- NOTE | 2018-05-10 14:51 | NURSING ---
THIS NURSE EXPALINED TO PT HE MAY BE DC TOMORROW 05/11/18, THIS NURSE ADVISED PT THERE WILL BE ANOTHER OXYGEN TANK DELIVERED TO PT THIS DAY. ALSO, ADVISED PT OF OPTION FOR [facility]IDE VIA CAB DUE TO PT EXPRESSING CONCERNS OF NOT HAVING ANY FAMILY. PT AWARE.
--- NOTE | 2018-05-10 17:37 | PCM.PN.HOSP ---
Patient Problems: Active and Suspected Problems Sepsis (Acute) Acute and chronic respiratory failure with hypoxia (Acute) COPD exacerbation (Acute) Pneumonia (Acute) Subjective: Patient got very short of breath even walking 4 times from bed to door and dropped pulse ox, 87% on 4 L of oxygen. Patient was very short of breath and tachypneic. Patient completed antibiotic course 6 days of Rocephin. Antibiotic discontinued. Lower extremity swelling and shortness of breath at rest has improved Vitals/I&O's: Vital Signs Temp Pulse Resp BP Pulse Ox 98.5 F 95 20 H 117/73 94 05/10/18 17:33 05/10/18 17:33 05/10/18 17:33 05/10/18 17:33 05/10/18 17:33 Oxygen Flow Rate (L/min) 4 Oxygen Delivery Method Nasal Cannula Weight: 227 lb 4.745 oz Body Mass Index (BMI) 40.2 Intake and Output for Last 24 Hours 05/08/18 05/09/18 05/10/18 23:59 23:59 23:59 Intake Total 1012 / 1012 2065 / 2065 655 / 655 Output Total 350 / 350 750 / 750 400 / 400 Balance 662 / 662 1315 / 1315 255 / 255 General: Alert, Oriented x3, Cooperative HEENT: Atraumatic, PERRLA, EOMI, Normocephalic Neck: Supple, No JVD, Negative Carotid Bruits Lungs: Diminished, Rhonchi Cardiovascular: Regular rate, Normal S1, Normal S2, No murmurs Abdomen: Bowel Sounds Present, Soft, Non Tender, Non-Distended Extremities: Capillary Refill Less than 3 Seconds, Edema Skin: No rashes, No breakdown Musculoskeletal: No Tenderness to Palpation of Joints or Extremities Neurological: Cranial nerves II-XII grossly intact Psych/Mental Status: Normal Affect, Appropriate Microbiology Past 72 Hours 05/06/18 11:05 Sputum, Expectorated/Coughed Gram Stain - Final 05/06/18 11:05 Sputum, Expectorated/Coughed Respiratory Culture - Final Laboratory Results 05/10/18 05:20: Sodium 140, Potassium 4.3, Chloride 99, Carbon Dioxide 36.0 H, Anion Gap 5, BUN 31 H, Creatinine 0.69 L, Estim Creat Clear Calc 90.48, Est GFR (MDRD) Af Amer 149, Est GFR (MDRD) Non-Af 123, BUN/Creatinine Ratio 44.8 H, Glucose 144 H, Calcium 8.6 Current Medications Acetaminophen (Tylenol) 650 mg PO Q6H PRN PRN PRN Reason: Mild Pain (scale 0-3)/T>100.7 Last Admin: 05/10/18 17:32 Dose: 650 mg Al Hydroxide/Mg Hydroxide (Mylanta Ii) 30 ml PO Q6H PRN PRN PRN Reason: Gastric burning Albuterol Sulfate (Ventolin Aerosols) 2.5 mg INHALATION Q2H PRN PRN PRN Reason: SHORTNESS OF BREATH Albuterol/Ipratropium (Duoneb) 3 ml INHALATION Q4H.RT [facility] Last Admin: 05/10/18 15:24 Dose: 3 ml Aspirin (Aspirin, Baby) 81 mg PO DAILY@0800 [facility] Last Admin: 05/10/18 08:21 Dose: 81 mg Baclofen (Lioresal) 20 mg PO BID [facility] Last Admin: 05/10/18 09:23 Dose: Not Given Citalopram Hydrobromide (Celexa) 40 mg PO DAILY [facility] Last Admin: 05/10/18 09:21 Dose: Not Given Enoxaparin Sodium (Lovenox) 40 mg SC DAILY [facility] Last Admin: 05/10/18 09:23 Dose: 40 mg Famotidine (Pepcid) 20 mg PO BID [facility] Last Admin: 05/10/18 09:25 Dose: Not Given Furosemide (Lasix) 20 mg PO BID@1000,1800 [facility] Last Admin: 05/10/18 17:33 Dose: 20 mg Guaifenesin (Mucinex) 1,200 mg PO BID [facility] Last Admin: 05/10/18 09:24 Dose: 1,200 mg Lorazepam (Ativan) 0.5 mg PO BID PRN PRN PRN Reason: ANXIETY Last Admin: 05/10/18 09:28 Dose: 0.5 mg Magnesium Hydroxide (Milk Of Magnesia) 30 ml PO DAILY PRN PRN Reason: Constipation Methylprednisolone (Solu-Medrol) 40 mg IV Q12 [facility] Montelukast Sodium (Singulair) 10 mg PO DAILY [facility] Last Admin: 05/10/18 09:26 Dose: 10 mg Nicotine (Nicoderm Cq (Pbkc)) 21 mg TRANSDERM. DAILY [facility] Last Admin: 05/10/18 09:24 Dose: 21 mg Ondansetron HCl (Zofran) 4 mg IV Q8H PRN PRN PRN Reason: NAUSEA Oxycodone HCl (Oxyir) 5 mg PO Q6H PRN PRN PRN Reason: PAIN Last Admin: 05/10/18 06:22 Dose: 5 mg Pramipexole Dihydrochloride (Mirapex) 0.25 mg PO QHS [facility] Last Admin: 05/09/18 22:40 Dose: 0.25 mg Promethazine HCl (Phenergan) 12.5 mg IV Q6H PRN PRN PRN Reason: NAUSEA/VOMITING Sodium Chloride () 5 - 30 ml IV UD PRN PRN Reason: SALINE FLUSH Last Admin: 05/10/18 06:26 Dose: 20 ml Tamsulosin HCl (Flomax) 0.4 mg PO BID [facility] Last Admin: 05/10/18 09:23 Dose: 0.4 mg Trazodone HCl (Desyrel) 100 mg PO QHS [facility] Last Admin: 05/09/18 22:43 Dose: 100 mg Medical Necessity - Tobacco Use Smoking Status: Current some day smoker Tobacco Use: Cigarettes Assessment/Plan All Active Problems Sepsis (Acute) Acute and chronic respiratory failure with hypoxia (Acute) COPD exacerbation (Acute) Pneumonia (Acute) The patient is a 62 y/o M with history of chronic hypoxic respiratory failure on 4-5 L of oxygen through nasal cannula at home, morbid obesity, KARIN,BPH, Anxiety and Depression was admitted with fever, chills, nonproductive cough, progressive worsening of shortness of breath or 1 day consistent with acute on chronic COPD exacerbation 1. Acute on chronic hypoxic and hypercarbic combined respiratory failure secondary to COPD exacerbation and possible pneumonia: Oxygen support to keep pulse ox 90%. BiPAP at night. No significant improvement with regard to hypoxia/dyspnea. Pulmonary consult reviewed and appreciated. Patient is still on 4 L of oxygen at rest and requires 6 L on ambulation. 2.COPD exacerbation exacerbation most probably from viral bronchitis/pneumonia: Respiratory panel is negative. Urinary antigens are negative. Continue DuoNeb every 4 hourly, IV Solu-Medrol, incentive spirometry, mucolytic and oxygen support. Leukocytosis persistent probably secondary to steroid. 3. Possible right middle lobe/right lower lobe community-acquired pneumonia. Patient has clinical symptoms of pneumonia including fever, tachypnea, shortness of breath. Chest x-ray raises shows density in the right lung base and superimposed infiltrate cannot be excluded therefore suspicion of community-acquired pneumonia. Continue IV ceftriaxone. Final sputum culture reported as mixed normal respiratory matthew. No haemophilus, streptococcus pneumoniae, beta-hemolytic Streptococcus or staph aureus isolated. Repeat chest x-ray PA and lateral reviewed and agree with the report of increased right basilar infiltrate superimposed on bibasilar scarring. Patient had 6 days of IV antibiotics. Rocephin discontinued. 4. Bilateral lower leg edema: BNP is normal. 2D echo was done and reported as EF 65% with moderate concentric LVH but it was technically difficult study therefore could not assess diastolic function or estimate RVSP. Trivial TR. there is suspicion he might have pulmonary hypertension. On Lasix 40 mg twice daily Morbid obesity. emphasized lifestyle modifications 4. KARIN. Continue CPAP on home settings DVT prophylaxis: On Lovenox Microbiology Past 72 Hours 05/04/18 21:58 Blood Culture (Wb) - Anticubital Left Blood Culture - Final No growth in 5 days. 05/04/18 21:58 Blood Culture (Wb) - Arm Right Blood Culture - Final No growth in 5 days. 05/06/18 11:05 Sputum, Expectorated/Coughed Gram Stain - Final 05/06/18 11:05 Sputum, Expectorated/Coughed Respiratory Culture - Final Laboratory Results 05/10/18 05:20: Sodium 140, Potassium 4.3, Chloride 99, Carbon Dioxide 36.0 H, Anion Gap 5, BUN 31 H, Creatinine 0.69 L, Estim Creat Clear Calc 90.48, Est GFR (MDRD) Af Amer 149, Est GFR (MDRD) Non-Af 123, BUN/Creatinine Ratio 44.8 H, Glucose 144 H, Calcium 8.6 Clinical Impression(s) from Imaging Studies Chest X-Ray 05/04/18 21:45 IMPRESSION: Chronic interstitial changes. Cannot exclude coexisting right lower lobe pneumonia. Left pleural thickening or tiny effusion with mild basilar atelectasis. Chest X-Ray 05/07/18 13:38 IMPRESSION: Slight increase in the right basilar infiltrate superimposed on bibasilar scarring. Active Medications Acetaminophen (Tylenol) 650 mg PO Q6H PRN PRN PRN Reason: Mild Pain (scale 0-3)/T>100.7 Last Admin: 05/10/18 17:32 Dose: 650 mg Al Hydroxide/Mg Hydroxide (Mylanta Ii) 30 ml PO Q6H PRN PRN PRN Reason: Gastric burning Albuterol Sulfate (Ventolin Aerosols) 2.5 mg INHALATION Q2H PRN PRN PRN Reason: SHORTNESS OF BREATH Albuterol/Ipratropium (Duoneb) 3 ml INHALATION Q4H.RT [facility] Last Admin: 05/10/18 15:24 Dose: 3 ml Aspirin (Aspirin, Baby) 81 mg PO DAILY@0800 [facility] Last Admin: 05/10/18 08:21 Dose: 81 mg Baclofen (Lioresal) 20 mg PO BID [facility] Last Admin: 05/10/18 09:23 Dose: Not Given Citalopram Hydrobromide (Celexa) 40 mg PO DAILY [facility] Last Admin: 05/10/18 09:21 Dose: Not Given Enoxaparin Sodium (Lovenox) 40 mg SC DAILY [facility] Last Admin: 05/10/18 09:23 Dose: 40 mg Famotidine (Pepcid) 20 mg PO BID [facility] Last Admin: 05/10/18 09:25 Dose: Not Given Furosemide (Lasix) 20 mg PO BID@1000,1800 [facility] Last Admin: 05/10/18 17:33 Dose: 20 mg Guaifenesin (Mucinex) 1,200 mg PO BID [facility] Last Admin: 05/10/18 09:24 Dose: 1,200 mg Lorazepam (Ativan) 0.5 mg PO BID PRN PRN PRN Reason: ANXIETY Last Admin: 05/10/18 09:28 Dose: 0.5 mg Magnesium Hydroxide (Milk Of Magnesia) 30 ml PO DAILY PRN PRN Reason: Constipation Methylprednisolone (Solu-Medrol) 40 mg IV Q12 [facility] Montelukast Sodium (Singulair) 10 mg PO DAILY [facility] Last Admin: 05/10/18 09:26 Dose: 10 mg Nicotine (Nicoderm Cq (Pbkc)) 21 mg TRANSDERM. DAILY [facility] Last Admin: 05/10/18 09:24 Dose: 21 mg Ondansetron HCl (Zofran) 4 mg IV Q8H PRN PRN PRN Reason: NAUSEA Oxycodone HCl (Oxyir) 5 mg PO Q6H PRN PRN PRN Reason: PAIN Last Admin: 05/10/18 06:22 Dose: 5 mg Pramipexole Dihydrochloride (Mirapex) 0.25 mg PO QHS [facility] Last Admin: 05/09/18 22:40 Dose: 0.25 mg Promethazine HCl (Phenergan) 12.5 mg IV Q6H PRN PRN PRN Reason: NAUSEA/VOMITING Sodium Chloride () 5 - 30 ml IV UD PRN PRN Reason: SALINE FLUSH Last Admin: 05/10/18 06:26 Dose: 20 ml Tamsulosin HCl (Flomax) 0.4 mg PO BID [facility] Last Admin: 05/10/18 09:23 Dose: 0.4 mg Trazodone HCl (Desyrel) 100 mg PO QHS [facility] Last Admin: 05/09/18 22:43 Dose: 100 mg Code Visit Inpatient E&M: 67596 [facility] Hosp L3
--- NOTE | 2018-05-10 19:59 | NURSING ---
MEDICATION ADMINISTRATION, ASSESSMENT, PT CARE REVIEWED BY THIS RN AND UNDER SUPERVISION OF RN. VSA TAKEN LATE
[2018-05-10] MEDS: Magnesium Hydroxide 30 ML UDC PO (21:37)
[2018-05-10] MEDS: traZODone 100 MG Tablet PO (21:38)
[2018-05-10] MEDS: Baclofen 10 MG Tablet 20 MG PO (21:39)
[2018-05-10] MEDS: Pramipexole Di-HCl 0.25 MG Tablet PO (21:39)
[2018-05-10] MEDS: Famotidine 20 MG Tablet PO (21:39)
--- NOTE | 2018-05-10 23:52 | CPS ---
pt did not want to go on bipap at this time-pt states will put on when ready-hospital bipap is on standby
[2018-05-11] VITALS (22 sets, daily range): BP systolic 99–123; BP diastolic 54–82; PULSE 84–113; RESP 12–24; TEMP 36.8–37.1; O2SAT 0–97
[2018-05-11] MEDS: Ipratropium/Albuterol Sulfate 3 ML AMPUL.NEB INHALATION ×6 (03:13→22:50)
[2018-05-11 05:55] LABS: Absolute Neutrophil Count 9.1 X10^3/uL (2.0-7.7); Hematocrit 45.7 % (40-54); Hemoglobin 14.5 g/dl (13.0-16.5); Lymphocyte % 7.2 % (19-41); Mean Corp Hgb Conc 31.7 g/gl (32-36); Mean Corpuscular Hgb 30.7 pg (27.0-32.0); Mean Corpuscular Volume 96.6 fL (80-94); Mean Platelet Vol. 9.8 fl (6.2-12.0); Monocyte# 1.22 X10^3/uL; Monocyte% 10.9 % (0-10); Neutrophil # 9.14 X10^3/uL (2.7-7.7); Neutrophil % 81.8 % (47-70); Platelet Count 227 K/mm3 (150-450); RBC Distribution Width CV 13.8 % (11.6-14.6); RBC Distribution Width SD 49.3 fl (35.1-43.9); Red Blood Count 4.73 M/mm3 (4.6-6.2); White Blood Count 11.2 K/mm3 (4.4-11.0)
[2018-05-11 06:01] LABS: POSITIVE COUNT NO; POSITIVE DIFFERENTIAL NO; POSITIVE MORPHOLOGY NO
[2018-05-11 06:26] LABS: Anion Gap 3 (5-15); BUN 30 mg/dL (7-18); BUN/Creat Ratio 41.3 RATIO (10-20); Calcium,Total 8.2 mg/dL (8.5-10.1); Chloride 98 mmol/L (98-107); Creatinine, Serum 0.73 mg/dL (0.70-1.30); EST Glomerular Filtration Rate 117 mL/min (>60); Est Glom Filt Rate - Afr Amer 141 mL/min (>60); Estimated Creatinine Clearance 85.52 ml/min; Glucose 149 mg/dL (74-106); Potassium 4.9 mmol/L (3.5-5.1); Sodium Level 141 mmol/L (136-145)
--- NOTE | 2018-05-11 09:49 | PCM.PROGNOTE ---
Patient Problems: Active and Suspected Problems Sepsis (Acute) Acute and chronic respiratory failure with hypoxia (Acute) COPD exacerbation (Acute) Pneumonia (Acute) Subjective: Patient did well overnight. Patient continues to report subjective improvement in overall condition. Patient still having some swelling, but feels that he is resting better at night. Patient denies any current chest pain. No dyspnea at rest, but patient still reports some dyspnea with exertion. - Physical Exam General: Alert, Oriented x3, Cooperative, No apparent distress, - - Appears older than stated age. Morbidly obese. HEENT: Atraumatic, PERRLA, EOMI, Normocephalic, - - No scleral icterus or injection noted. Oral: Moist Mucosa, No Gingival or Mucosal Lesions/ Ulcerations Neck: Supple, No JVD, No Nodes, Trachea Midline Lungs: No rhonchi, No rales, Diminished, Wheezes, - - Symmetric expansion. No dullness to percussion. Cardiovascular: Normal S1, Normal S2, No murmurs, No rub noted, No Gallop, Tachycardic Abdomen: Bowel Sounds Present, Soft, Non Tender, Non-Distended, Obese Extremities: No cyanosis, Capillary Refill Less than 3 Seconds, Clubbing, Edema Skin: - - No significant change compared to previous Musculoskeletal: No Tenderness to Palpation of Joints or Extremities, No Muscle Wasting Lymphatic: No Cervical, Supraclavicular, or Inguinal Adenopathy Neurological: Cranial nerves II-XII grossly intact, Neuro grossly intact, Motor Exam 5/5 strength throughout, Sensory exam intact to light touch and pain Psych/Mental Status: Alert and oriented to time, place, person, mood and affect Vital Signs Temp Pulse Resp BP Pulse Ox 36.9 C 100 24 H 122/68 H 97 05/11/18 03:30 05/11/18 06:58 05/11/18 06:58 05/11/18 03:30 05/11/18 07:05 Oxygen Flow Rate (L/min) 4 Oxygen Delivery Method Nasal Cannula Weight: 103.1 kg Body Mass Index (BMI) 40.2 Intake and Output for Last 24 Hours 05/09/18 05/10/18 05/11/18 23:59 23:59 23:59 Intake Total 2065 / 2065 1375 / 1375 Output Total 750 / 750 400 / 400 400 / 400 Balance 1315 / 1315 975 / 975 -400 / -400 Microbiology Past 72 Hours 05/06/18 11:05 Gram Stain - Final Sputum, Expectorated/Coughed Respiratory Culture - Final Laboratory Tests Past 24 Hrs 05/11/18 05/11/18 05:28 05:28 WBC 11.2 H RBC 4.73 Hgb 14.5 Hct 45.7 MCV 96.6 H MCH 30.7 MCHC 31.7 L RDW 13.8 RDW Differential 49.3 H Plt Count 227 MPV 9.8 Immature Gran % (Auto) 0.100 Neut % (Auto) 81.8 H Lymph % (Auto) 7.2 L [place] % (Auto) 10.9 H Eos % (Auto) 0.0 Baso % (Auto) 0.0 Absolute Neuts (auto) 9.1 H Absolute Lymphs (auto) 0.80 L Total Counted Not Reportable Sodium 141 Potassium 4.9 Chloride 98 Carbon Dioxide 40.0 H Anion Gap 3 L BUN 30 H Creatinine 0.73 Estim Creat Clear Calc 85.52 Est GFR (MDRD) Af Amer 141 Est GFR (MDRD) Non-Af 117 BUN/Creatinine Ratio 41.3 H Glucose 149 H Calcium 8.2 L Medical Necessity - Tobacco Use Smoking Status: Current some day smoker Tobacco Use: Cigarettes Assessment/Plan All Active Problems Sepsis (Acute) Acute and chronic respiratory failure with hypoxia (Acute) COPD exacerbation (Acute) Pneumonia (Acute) RECOMMENDATIONS: 1. Transition to prednisone therapy 2. Continue empiric diuresis 3. Increase activity as tolerated 4. Wean oxygen as tolerated 5. Walking oximetry prior to discharge 6. Continue BiPAP nightly IMPRESSIONS: 1. Acute on chronic hypoxic respiratory failure secondary to possible right lower lobe pneumonia/COPD exacerbation Patient reportedly with advanced COPD by PFT criteria. No records are available for review at this time. Patient does use significant supplemental oxygen at baseline, but has required BiPAP rescue while in the hospital. Patient's elevated bicarbonate is suggestive of CO2 retention. Transition to prednisone therapy and wean over the next 12-14 days. In order to be discharged, patient will need to be able to ambulate with less than 6 L/min nasal cannula oxygen. Will order a walking oximetry for evaluation. 2. Possible congestive heart failure versus cor pulmonale Patient was significant swelling of the lower extremities over the last 3-4 months. Clinical suspicion for at least cor pulmonale exacerbated by exertional hypoxemia. Patient may also have an element of congestive heart failure given comorbidities. Patient states he had a stress test that was normal in the past, but this is not available for review. Echocardiogram was unable to quantify right-sided heart pressures. Patient tolerating diuretic therapy well. Will repeat BMP tomorrow to make sure no electrolyte abnormalities or renal dysfunction is noted. 3. Morbid obesity/KARIN/anxiety/depression/chronic pain syndrome Complicates care, management, recovery and prognosis. Continue with baseline noninvasive therapy. Okay to continue with baseline medications from my perspective. Will add patient's trazodone and Requip from home medication list to assist with sleep. Code Visit Inpatient E&M: 62804 Subs Hosp L2
[2018-05-11] MEDS: Mag Hydrox/Al Hydrox/Simeth 30 ML UDC PO ×2 (10:16→18:25)
[2018-05-11] MEDS: Baclofen 10 MG Tablet 20 MG PO ×2 (10:16→23:04)
[2018-05-11] MEDS: Montelukast 10 MG Tablet PO (10:17)
[2018-05-11] MEDS: Famotidine 20 MG Tablet PO ×2 (10:17→23:05)
[2018-05-11] MEDS: Furosemide 20 MG Tablet PO ×2 (10:17→17:31)
[2018-05-11] MEDS: Aspirin 81 MG TAB.CHEW PO (10:17)
[2018-05-11] MEDS: Tamsulosin HCl 0.4 MG Capsule PO ×2 (10:17→23:04)
[2018-05-11] MEDS: ROFLUMILAST 500 MCG TABLET PO (10:18)
[2018-05-11] MEDS: Enoxaparin 40 MG/0.4 ML Syringe SC (10:18)
[2018-05-11] MEDS: LORazepam 0.5 MG Tablet PO (10:20)
[2018-05-11] MEDS: oxyCODONE 5 MG Tablet PO ×2 (10:20→23:03)
[2018-05-11] MEDS: predniSONE 20 MG Tablet 40 MG PO (12:16)
--- NOTE | 2018-05-11 16:29 | PCM.PN.HOSP ---
Patient Problems: Active and Suspected Problems Sepsis (Acute) Acute and chronic respiratory failure with hypoxia (Acute) COPD exacerbation (Acute) Pneumonia (Acute) Subjective: Patient not very short of breath during walking pulse oximetry on 6 L of oxygen. Discussed with the respiratory therapist. Patient heart rate in 90s and sometimes in 110s. Vitals/I&O's: Vital Signs Temp Pulse Resp BP Pulse Ox 98.7 F 96 16 99/54 L 94 05/11/18 15:30 05/11/18 15:30 05/11/18 15:30 05/11/18 15:30 05/11/18 15:30 Oxygen Flow Rate (L/min) [ 4 AMBULATION with Oxygen] Oxygen Flow Rate (L/min) [ 0 AMBULATING on Room Air] Oxygen Flow Rate (L/min) 4 Oxygen Delivery Method Nasal Cannula Weight: 227 lb 4.745 oz Body Mass Index (BMI) 40.2 Intake and Output for Last 24 Hours 05/09/18 05/10/18 05/11/18 23:59 23:59 23:59 Intake Total 2065 / 2065 1375 / 1375 360 / 360 Output Total 750 / 750 400 / 400 400 / 400 Balance 1315 / 1315 975 / 975 -40 / -40 General: Alert, Oriented x3, Cooperative HEENT: Atraumatic, PERRLA, EOMI, Normocephalic Neck: Supple, No JVD, Negative Carotid Bruits Lungs: Diminished, Rhonchi, - - Oxygen Cardiovascular: Regular rate, Normal S1, Normal S2, No murmurs Abdomen: Bowel Sounds Present, Soft, Non Tender, Non-Distended Extremities: No edema, Capillary Refill Less than 3 Seconds, Edema Skin: No rashes, No breakdown Musculoskeletal: No Tenderness to Palpation of Joints or Extremities Neurological: Cranial nerves II-XII grossly intact Psych/Mental Status: Normal Affect, Appropriate Laboratory Results 05/11/18 05:28: Sodium 141, Potassium 4.9, Chloride 98, Carbon Dioxide 40.0 H, Anion Gap 3 L, BUN 30 H, Creatinine 0.73, Estim Creat Clear Calc 85.52, Est GFR (MDRD) Af Amer 141, Est GFR (MDRD) Non-Af 117, BUN/Creatinine Ratio 41.3 H, Glucose 149 H, Calcium 8.2 L 05/11/18 05:28: WBC 11.2 H, RBC 4.73, Hgb 14.5, Hct 45.7, MCV 96.6 H, MCH 30.7, MCHC 31.7 L, RDW 13.8, RDW Differential 49.3 H, Plt Count 227, MPV 9.8, Immature Gran % (Auto) 0.100, Neut % (Auto) 81.8 H, Lymph % (Auto) 7.2 L, [place] % (Auto) 10.9 H, Eos % (Auto) 0.0, Baso % (Auto) 0.0, Absolute Neuts (auto) 9.1 H, Absolute Lymphs (auto) 0.80 L, Total Counted Not Reportable Current Medications Acetaminophen (Tylenol) 650 mg PO Q6H PRN PRN PRN Reason: Mild Pain (scale 0-3)/T>100.7 Last Admin: 05/10/18 17:32 Dose: 650 mg Al Hydroxide/Mg Hydroxide (Mylanta Ii) 30 ml PO Q6H PRN PRN PRN Reason: Gastric burning Last Admin: 05/11/18 10:16 Dose: 30 ml Albuterol Sulfate (Ventolin Aerosols) 2.5 mg INHALATION Q2H PRN PRN PRN Reason: SHORTNESS OF BREATH Albuterol/Ipratropium (Duoneb) 3 ml INHALATION Q4H.RT [facility] Last Admin: 05/11/18 14:54 Dose: 3 ml Aspirin (Aspirin, Baby) 81 mg PO DAILY@0800 [facility] Last Admin: 05/11/18 10:17 Dose: 81 mg Baclofen (Lioresal) 20 mg PO BID [facility] Last Admin: 05/11/18 10:16 Dose: 10 mg Citalopram Hydrobromide (Celexa) 40 mg PO DAILY [facility] Last Admin: 05/11/18 10:17 Dose: Not Given Enoxaparin Sodium (Lovenox) 40 mg SC DAILY [facility] Last Admin: 05/11/18 10:18 Dose: 40 mg Famotidine (Pepcid) 20 mg PO BID [facility] Last Admin: 05/11/18 10:17 Dose: 20 mg Furosemide (Lasix) 20 mg PO BID@1000,1800 [facility] Last Admin: 05/11/18 10:17 Dose: 20 mg Guaifenesin (Mucinex) 1,200 mg PO BID [facility] Last Admin: 05/11/18 10:16 Dose: Not Given Lorazepam (Ativan) 0.5 mg PO BID PRN PRN PRN Reason: ANXIETY Last Admin: 05/11/18 10:20 Dose: 0.5 mg Magnesium Hydroxide (Milk Of Magnesia) 30 ml PO DAILY PRN PRN Reason: Constipation Last Admin: 05/10/18 21:37 Dose: 30 ml Montelukast Sodium (Singulair) 10 mg PO DAILY [facility] Last Admin: 05/11/18 10:17 Dose: 10 mg Nicotine (Nicoderm Cq (Pbkc)) 21 mg TRANSDERM. DAILY [facility] Last Admin: 05/11/18 10:18 Dose: 21 mg Ondansetron HCl (Zofran) 4 mg IV Q8H PRN PRN PRN Reason: NAUSEA Oxycodone HCl (Oxyir) 5 mg PO Q6H PRN PRN PRN Reason: PAIN Last Admin: 05/11/18 10:20 Dose: 5 mg Pramipexole Dihydrochloride (Mirapex) 0.25 mg PO QHS [facility] Last Admin: 05/10/18 21:39 Dose: 0.25 mg Prednisone () 40 mg PO DAILY@0800 [facility] Last Admin: 05/11/18 12:16 Dose: 40 mg Promethazine HCl (Phenergan) 12.5 mg IV Q6H PRN PRN PRN Reason: NAUSEA/VOMITING Sodium Chloride () 5 - 30 ml IV UD PRN PRN Reason: SALINE FLUSH Last Admin: 05/10/18 21:45 Dose: 5 ml Tamsulosin HCl (Flomax) 0.4 mg PO BID [facility] Last Admin: 05/11/18 10:17 Dose: 0.4 mg Trazodone HCl (Desyrel) 100 mg PO QHS [facility] Last Admin: 05/10/18 21:38 Dose: 100 mg Medical Necessity - Tobacco Use Smoking Status: Current some day smoker Tobacco Use: Cigarettes Assessment/Plan All Active Problems Sepsis (Acute) Acute and chronic respiratory failure with hypoxia (Acute) COPD exacerbation (Acute) Pneumonia (Acute) The patient is a 62 y/o M with history of chronic hypoxic respiratory failure on 4-5 L of oxygen through nasal cannula at home, morbid obesity, KARIN,BPH, Anxiety and Depression was admitted with fever, chills, nonproductive cough, progressive worsening of shortness of breath or 1 day consistent with acute on chronic COPD exacerbation 1. Acute on chronic hypoxic and hypercarbic combined respiratory failure secondary to COPD exacerbation and possible pneumonia: Oxygen support to keep pulse ox 90%. BiPAP at night. No significant improvement with regard to hypoxia/dyspnea. Pulmonary consult reviewed and appreciated. Patient is still on 4 L of oxygen at rest and requires 6 L on ambulation. 2.COPD exacerbation exacerbation most probably from viral bronchitis/pneumonia: Respiratory panel is negative. Urinary antigens are negative. Continue DuoNeb every 4 hourly, IV Solu-Medrol, incentive spirometry, mucolytic and oxygen support. Leukocytosis persistent probably secondary to steroid. 3. Possible right middle lobe/right lower lobe community-acquired pneumonia. Patient has clinical symptoms of pneumonia including fever, tachypnea, shortness of breath. Chest x-ray raises shows density in the right lung base and superimposed infiltrate cannot be excluded therefore suspicion of community-acquired pneumonia. Final sputum culture reported as mixed normal respiratory matthew. No haemophilus, streptococcus pneumoniae, beta-hemolytic Streptococcus or staph aureus isolated. Repeat chest x-ray PA and lateral reviewed and agree with the report of increased right basilar infiltrate superimposed on bibasilar scarring. Patient had 6 days of IV antibiotics. Rocephin discontinued. 4. Bilateral lower leg edema: BNP is normal. 2D echo was done and reported as EF 65% with moderate concentric LVH but it was technically difficult study therefore could not assess diastolic function or estimate RVSP. Trivial TR. there is suspicion he might have pulmonary hypertension. On Lasix 40 mg twice daily Morbid obesity. emphasized lifestyle modifications 4. KARIN. Continue CPAP on home settings DVT prophylaxis: On Lovenox Patient needs continue bronchodilator therapy, diuretic, BiPAP support and physical therapy. Multiple comorbidities including severe COPD probably stage IV, possible obstructive sleep apnea with pulmonary hypertension and requirement of high oxygen complicates the present care and expect difficult and delay recovery Microbiology Past 72 Hours 05/04/18 21:58 Blood Culture (Wb) - Anticubital Left Blood Culture - Final No growth in 5 days. 05/04/18 21:58 Blood Culture (Wb) - Arm Right Blood Culture - Final No growth in 5 days. Laboratory Results 05/11/18 05:28: Sodium 141, Potassium 4.9, Chloride 98, Carbon Dioxide 40.0 H, Anion Gap 3 L, BUN 30 H, Creatinine 0.73, Estim Creat Clear Calc 85.52, Est GFR (MDRD) Af Amer 141, Est GFR (MDRD) Non-Af 117, BUN/Creatinine Ratio 41.3 H, Glucose 149 H, Calcium 8.2 L 05/11/18 05:28: WBC 11.2 H, RBC 4.73, Hgb 14.5, Hct 45.7, MCV 96.6 H, MCH 30.7, MCHC 31.7 L, RDW 13.8, RDW Differential 49.3 H, Plt Count 227, MPV 9.8, Immature Gran % (Auto) 0.100, Neut % (Auto) 81.8 H, Lymph % (Auto) 7.2 L, [place] % (Auto) 10.9 H, Eos % (Auto) 0.0, Baso % (Auto) 0.0, Absolute Neuts (auto) 9.1 H, Absolute Lymphs (auto) 0.80 L, Total Counted Not Reportable Clinical Impression(s) from Imaging Studies Chest X-Ray 05/04/18 21:45 IMPRESSION: Chronic interstitial changes. Cannot exclude coexisting right lower lobe pneumonia. Left pleural thickening or tiny effusion with mild basilar atelectasis. Chest X-Ray 05/07/18 13:38 IMPRESSION: Slight increase in the right basilar infiltrate superimposed on bibasilar scarring. Code Visit Inpatient E&M: 47759 Subs Hosp L3
[2018-05-11] MEDS: traZODone 100 MG Tablet PO (23:04)
[2018-05-11] MEDS: guaiFENesin 1,200 MG Tablet 1200 MG PO (23:05)
[2018-05-11] MEDS: Pramipexole Di-HCl 0.25 MG Tablet PO (23:05)
[2018-05-11] MEDS: Magnesium Hydroxide 30 ML UDC PO (23:12)
[2018-05-12] VITALS (22 sets, daily range): BP systolic 106–120; BP diastolic 65–77; PULSE 76–107; RESP 12–24; TEMP 36.6–37.2; O2SAT 90–96
[2018-05-12] MEDS: Ipratropium/Albuterol Sulfate 3 ML AMPUL.NEB INHALATION ×5 (06:55→23:19)
[2018-05-12 07:43] LABS: Anion Gap 5 (5-15); BUN 27 mg/dL (7-18); BUN/Creat Ratio 41.9 RATIO (10-20); Calcium,Total 8.1 mg/dL (8.5-10.1); Chloride 98 mmol/L (98-107); Creatinine, Serum 0.64 mg/dL (0.70-1.30); EST Glomerular Filtration Rate 134 mL/min (>60); Est Glom Filt Rate - Afr Amer 162 mL/min (>60); Estimated Creatinine Clearance 97.55 ml/min; Glucose 116 mg/dL (74-106); Potassium 4.2 mmol/L (3.5-5.1); Sodium Level 141 mmol/L (136-145)
--- NOTE | 2018-05-12 07:58 | PN_ITS ---
Patient Problems: Active and Suspected Problems Sepsis (Acute) Acute and chronic respiratory failure with hypoxia (Acute) COPD exacerbation (Acute) Pneumonia (Acute) Subjective: Patient did well overnight. No acute issues were reported. Patient was compliant with noninvasive therapy. Patient reports subjective improvement in dyspnea on exertion and lower extremity edema. - Physical Exam General: Alert, Oriented x3, Cooperative, No apparent distress, - - Appears older than stated age. Morbidly obese. HEENT: Atraumatic, PERRLA, EOMI, Normocephalic, - - Right scleral injection without icterus Oral: Moist Mucosa, No Gingival or Mucosal Lesions/ Ulcerations Neck: Supple, No JVD, No Nodes, Trachea Midline Lungs: No rhonchi, No wheeze, No rales, Diminished, - - Symmetric expansion. No dullness to percussion. Cardiovascular: Regular rate, Regular Rhythm, Normal S1, Normal S2, No murmurs, No rub noted, No Gallop Abdomen: Bowel Sounds Present, Soft, Non Tender, Non-Distended, Obese Extremities: No clubbing, No cyanosis, Edema - She needs to improve Skin: - - No significant change compared to previous Musculoskeletal: No Tenderness to Palpation of Joints or Extremities Lymphatic: No Cervical, Supraclavicular, or Inguinal Adenopathy Neurological: Cranial nerves II-XII grossly intact, Neuro grossly intact, Motor Exam 5/5 strength throughout, Sensory exam intact to light touch and pain Psych/Mental Status: Alert and oriented to time, place, person, mood and affect Vital Signs Temp Pulse Resp BP Pulse Ox 36.6 C 77 21 H 120/70 93 05/12/18 04:05 05/12/18 06:57 05/12/18 06:03 05/12/18 04:05 05/12/18 06:03 Oxygen Flow Rate (L/min) [ 4 AMBULATION with Oxygen] Oxygen Flow Rate (L/min) [ 0 AMBULATING on Room Air] Oxygen Flow Rate (L/min) 4 Oxygen Delivery Method Bi-pap Weight: 103.1 kg Body Mass Index (BMI) 40.2 Intake and Output for Last 24 Hours 05/10/18 05/11/18 05/12/18 23:59 23:59 23:59 Intake Total 1375 / 1375 720 / 720 Output Total 400 / 400 400 / 400 Balance 975 / 975 320 / 320 Laboratory Tests Past 24 Hrs 05/12/18 05:40 Sodium 141 Potassium 4.2 Chloride 98 Carbon Dioxide 38.0 H Anion Gap 5 BUN 27 H Creatinine 0.64 L Estim Creat Clear Calc 97.55 Est GFR (MDRD) Af Amer 162 Est GFR (MDRD) Non-Af 134 BUN/Creatinine Ratio 41.9 H Glucose 116 H Calcium 8.1 L Medical Necessity - Tobacco Use Smoking Status: Current some day smoker Tobacco Use: Cigarettes Assessment/Plan All Active Problems Sepsis (Acute) Acute and chronic respiratory failure with hypoxia (Acute) COPD exacerbation (Acute) Pneumonia (Acute) RECOMMENDATIONS: 1. Wean steroids over the next 12-14 days 2. Continue empiric diuresis until discharged or creatinine increases 3. Increase activity as tolerated 4. Wean oxygen as tolerated 5. Walking oximetry prior to discharge 6. Continue BiPAP nightly IMPRESSIONS: 1. Acute on chronic hypoxic respiratory failure secondary to possible right lower lobe pneumonia/COPD exacerbation Patient reportedly with advanced COPD by PFT criteria. No records are available for review at this time. Patient does use significant supplemental oxygen at baseline, but has required BiPAP rescue while in the hospital. Patient's elevated bicarbonate is suggestive of CO2 retention. Transition to prednisone therapy and wean over the next 12-14 days. Patient was able to ambulate on 4 L nasal cannula and maintain saturations. We will continue with diuresis while patient is admitted, but would not discharge on Lasix therapy. Patient should follow-up with nurse practitioner 2 weeks after discharge. 2. Possible congestive heart failure versus cor pulmonale Patient was significant swelling of the lower extremities over the last 3- 4 months. Clinical suspicion for at least cor pulmonale exacerbated by exertional hypoxemia. Patient may also have an element of congestive heart failure given comorbidities. Patient states he had a stress test that was normal in the past, but this is not available for review. Echocardiogram was unable to quantify right-sided heart pressures. Patient tolerating diuretic therapy well. Will repeat BMP tomorrow to make sure no electrolyte abnormalities or renal dysfunction is noted. 3. Morbid obesity/KARIN/anxiety/depression/chronic pain syndrome Complicates care, management, recovery and prognosis. Continue with baseline noninvasive therapy. Okay to continue with baseline medications from my perspective. Will add patient's trazodone and Requip from home medication list to assist with sleep. Code Visit Inpatient E&M: 59369 Subs Hosp L2
[2018-05-12] MEDS: Enoxaparin 40 MG/0.4 ML Syringe SC (09:33)
[2018-05-12] MEDS: Montelukast 10 MG Tablet PO (09:33)
[2018-05-12] MEDS: Tamsulosin HCl 0.4 MG Capsule PO ×2 (09:34→22:15)
[2018-05-12] MEDS: guaiFENesin 1,200 MG Tablet 1200 MG PO (09:34)
[2018-05-12] MEDS: Baclofen 10 MG Tablet 20 MG PO ×2 (09:34→22:15)
[2018-05-12] MEDS: Aspirin 81 MG TAB.CHEW PO (09:34)
[2018-05-12] MEDS: Furosemide 20 MG Tablet PO ×2 (09:34→17:20)
[2018-05-12] MEDS: ROFLUMILAST 500 MCG TABLET PO (09:34)
[2018-05-12] MEDS: Famotidine 20 MG Tablet PO ×2 (09:34→22:15)
[2018-05-12] MEDS: Mag Hydrox/Al Hydrox/Simeth 30 ML UDC PO (09:35)
[2018-05-12] MEDS: predniSONE 20 MG Tablet 40 MG PO (09:35)
[2018-05-12] MEDS: Albuterol 2.5 MG/3 ML VIAL.NEB. INHALATION (09:35)
[2018-05-12] MEDS: oxyCODONE 5 MG Tablet PO ×3 (09:35→22:14)
[2018-05-12] MEDS: LORazepam 0.5 MG Tablet PO (09:35)
--- NOTE | 2018-05-12 12:09 | PCM.PN.HOSP ---
Patient Problems: Active and Suspected Problems Sepsis (Acute) Acute and chronic respiratory failure with hypoxia (Acute) COPD exacerbation (Acute) Pneumonia (Acute) Subjective: Patient is still short of breath and wheezy even on slight exertion and walking. Patient walking in the hallway on 6 L of oxygen. Vitals/I&O's: Vital Signs Temp Pulse Resp BP Pulse Ox 98.5 F 103 H 20 H 120/77 90 05/12/18 09:25 05/12/18 11:04 05/12/18 10:53 05/12/18 09:25 05/12/18 10:15 Oxygen Flow Rate (L/min) [ 4 AMBULATION with Oxygen] Oxygen Flow Rate (L/min) [ 0 AMBULATING on Room Air] Oxygen Flow Rate (L/min) 6 Oxygen Delivery Method Nasal Cannula Weight: 227 lb 4.745 oz Body Mass Index (BMI) 40.2 Intake and Output for Last 24 Hours 05/10/18 05/11/18 05/12/18 23:59 23:59 23:59 Intake Total 1375 / 1375 720 / 720 Output Total 400 / 400 400 / 400 Balance 975 / 975 320 / 320 General: Alert, Oriented x3, Cooperative HEENT: Atraumatic, PERRLA, EOMI, Normocephalic Neck: Supple, No JVD, Negative Carotid Bruits Lungs: Diminished, Rhonchi, Wheezes Cardiovascular: Regular rate, Normal S1, Normal S2, No murmurs Abdomen: Bowel Sounds Present, Soft, Non Tender, Non-Distended Extremities: Capillary Refill Less than 3 Seconds, Edema Skin: No rashes, No breakdown Musculoskeletal: No Tenderness to Palpation of Joints or Extremities Neurological: Cranial nerves II-XII grossly intact Psych/Mental Status: Normal Affect, Appropriate Laboratory Results 05/12/18 05:40: Sodium 141, Potassium 4.2, Chloride 98, Carbon Dioxide 38.0 H, Anion Gap 5, BUN 27 H, Creatinine 0.64 L, Estim Creat Clear Calc 97.55, Est GFR (MDRD) Af Amer 162, Est GFR (MDRD) Non-Af 134, BUN/Creatinine Ratio 41.9 H, Glucose 116 H, Calcium 8.1 L Current Medications Acetaminophen (Tylenol) 650 mg PO Q6H PRN PRN PRN Reason: Mild Pain (scale 0-3)/T>100.7 Last Admin: 05/10/18 17:32 Dose: 650 mg Al Hydroxide/Mg Hydroxide (Mylanta Ii) 30 ml PO Q6H PRN PRN PRN Reason: Gastric burning Last Admin: 05/12/18 09:35 Dose: 30 ml Albuterol Sulfate (Ventolin Aerosols) 2.5 mg INHALATION Q2H PRN PRN PRN Reason: SHORTNESS OF BREATH Last Admin: 05/12/18 09:35 Dose: 2.5 mg Albuterol/Ipratropium (Duoneb) 3 ml INHALATION Q4H.RT [facility] Last Admin: 05/12/18 10:53 Dose: 3 ml Aspirin (Aspirin, Baby) 81 mg PO DAILY@0800 [facility] Last Admin: 05/12/18 09:34 Dose: 81 mg Baclofen (Lioresal) 20 mg PO BID [facility] Last Admin: 05/12/18 09:34 Dose: 10 mg Citalopram Hydrobromide (Celexa) 40 mg PO DAILY [facility] Last Admin: 05/12/18 09:35 Dose: Not Given Enoxaparin Sodium (Lovenox) 40 mg SC DAILY [facility] Last Admin: 05/12/18 09:33 Dose: 40 mg Famotidine (Pepcid) 20 mg PO BID [facility] Last Admin: 05/12/18 09:34 Dose: 20 mg Furosemide (Lasix) 20 mg PO BID@1000,1800 [facility] Last Admin: 05/12/18 09:34 Dose: 20 mg Guaifenesin (Mucinex) 1,200 mg PO BID [facility] Last Admin: 05/12/18 09:34 Dose: 1,200 mg Lorazepam (Ativan) 0.5 mg PO BID PRN PRN PRN Reason: ANXIETY Last Admin: 05/12/18 09:35 Dose: 0.5 mg Magnesium Hydroxide (Milk Of Magnesia) 30 ml PO DAILY PRN PRN Reason: Constipation Last Admin: 05/11/18 23:12 Dose: 30 ml Montelukast Sodium (Singulair) 10 mg PO DAILY [facility] Last Admin: 05/12/18 09:33 Dose: 10 mg Nicotine (Nicoderm Cq (Pbkc)) 21 mg TRANSDERM. DAILY [facility] Last Admin: 05/12/18 09:33 Dose: 21 mg Ondansetron HCl (Zofran) 4 mg IV Q8H PRN PRN PRN Reason: NAUSEA Oxycodone HCl (Oxyir) 5 mg PO Q6H PRN PRN PRN Reason: PAIN Last Admin: 05/12/18 09:35 Dose: 5 mg Pramipexole Dihydrochloride (Mirapex) 0.25 mg PO QHS [facility] Last Admin: 05/11/18 23:05 Dose: 0.25 mg Prednisone () 40 mg PO DAILY@0800 [facility] Last Admin: 05/12/18 09:35 Dose: 40 mg Promethazine HCl (Phenergan) 12.5 mg IV Q6H PRN PRN PRN Reason: NAUSEA/VOMITING Sodium Chloride () 5 - 30 ml IV UD PRN PRN Reason: SALINE FLUSH Last Admin: 05/10/18 21:45 Dose: 5 ml Tamsulosin HCl (Flomax) 0.4 mg PO BID [facility] Last Admin: 05/12/18 09:34 Dose: 0.4 mg Trazodone HCl (Desyrel) 100 mg PO QHS [facility] Last Admin: 05/11/18 23:04 Dose: 100 mg Medical Necessity - Tobacco Use Smoking Status: Current some day smoker Tobacco Use: Cigarettes Assessment/Plan All Active Problems Sepsis (Acute) Acute and chronic respiratory failure with hypoxia (Acute) COPD exacerbation (Acute) Pneumonia (Acute) The patient is a 62 y/o M with history of chronic hypoxic respiratory failure on 4-5 L of oxygen through nasal cannula at home, morbid obesity, KARIN,BPH, Anxiety and Depression was admitted with fever, chills, nonproductive cough, progressive worsening of shortness of breath or 1 day consistent with acute on chronic COPD exacerbation 1. Acute on chronic hypoxic and hypercarbic combined respiratory failure secondary to COPD exacerbation and possible pneumonia: Oxygen support to keep pulse ox 90%. BiPAP at night. No significant improvement with regard to hypoxia/dyspnea. Pulmonary consult reviewed and appreciated. Patient is still on 4 L of oxygen at rest and requires 6 L on ambulation. 2.COPD exacerbation exacerbation most probably from viral bronchitis/pneumonia: Respiratory panel is negative. Urinary antigens are negative. Continue DuoNeb every 4 hourly, IV Solu-Medrol, incentive spirometry, mucolytic and oxygen support. Leukocytosis persistent probably secondary to steroid. 3. Possible right middle lobe/right lower lobe community-acquired pneumonia. Patient has clinical symptoms of pneumonia including fever, tachypnea, shortness of breath. Chest x-ray raises shows density in the right lung base and superimposed infiltrate cannot be excluded therefore suspicion of community-acquired pneumonia. Final sputum culture reported as mixed normal respiratory matthew. No haemophilus, streptococcus pneumoniae, beta-hemolytic Streptococcus or staph aureus isolated. Repeat chest x-ray PA and lateral reviewed and agree with the report of increased right basilar infiltrate superimposed on bibasilar scarring. Patient had 6 days of IV antibiotics. Rocephin discontinued. 4. Bilateral lower leg edema: BNP is normal. 2D echo was done and reported as EF 65% with moderate concentric LVH but it was technically difficult study therefore could not assess diastolic function or estimate RVSP. Trivial TR. there is suspicion he might have pulmonary hypertension. On Lasix 40 mg twice daily Morbid obesity. emphasized lifestyle modifications 4. KARIN. Continue CPAP on home settings DVT prophylaxis: On Lovenox Patient needs continue bronchodilator therapy, diuretic, BiPAP support and physical therapy. Multiple comorbidities including severe COPD probably stage IV, possible obstructive sleep apnea with pulmonary hypertension and requirement of high oxygen complicates the present care and expect difficult and delay recovery Discharge plan: Probably requires 1 or 2 more days of diuresis, most rarely 4 undiagnosed pulmonary hypertension with chronic combined respiratory failure with advanced stage for COPD. Contact Dr. Hughes before discharge Microbiology Past 72 Hours 05/04/18 21:58 Blood Culture (Wb) - Anticubital Left Blood Culture - Final No growth in 5 days. 05/04/18 21:58 Blood Culture (Wb) - Arm Right Blood Culture - Final No growth in 5 days. Laboratory Results 05/12/18 05:40: Sodium 141, Potassium 4.2, Chloride 98, Carbon Dioxide 38.0 H, Anion Gap 5, BUN 27 H, Creatinine 0.64 L, Estim Creat Clear Calc 97.55, Est GFR (MDRD) Af Amer 162, Est GFR (MDRD) Non-Af 134, BUN/Creatinine Ratio 41.9 H, Glucose 116 H, Calcium 8.1 L Clinical Impression(s) from Imaging Studies Chest X-Ray 05/04/18 21:45 IMPRESSION: Chronic interstitial changes. Cannot exclude coexisting right lower lobe pneumonia. Left pleural thickening or tiny effusion with mild basilar atelectasis. Chest X-Ray 05/07/18 13:38 IMPRESSION: Slight increase in the right basilar infiltrate superimposed on bibasilar scarring. Code Visit Inpatient E&M: 74844 Subs Hosp L3
[2018-05-12] MEDS: guaiFENesin 10 ML UDC (200MG/10ML) PO (15:25)
[2018-05-12] MEDS: Magnesium Hydroxide 30 ML UDC PO (22:15)
[2018-05-12] MEDS: Pramipexole Di-HCl 0.25 MG Tablet PO (22:17)
[2018-05-12] MEDS: guaiFENesin 600 MG Tablet PO (22:17)
[2018-05-12] MEDS: traZODone 100 MG Tablet PO (22:17)
[2018-05-13] VITALS (11 sets, daily range): BP systolic 98–115; BP diastolic 58–78; PULSE 74–117; RESP 12–22; TEMP 36.6–36.8; O2SAT 93–97
[2018-05-13] MEDS: LORazepam 0.5 MG Tablet PO (06:01)
[2018-05-13] MEDS: Ipratropium/Albuterol Sulfate 3 ML AMPUL.NEB INHALATION ×3 (06:04→14:17)
[2018-05-13 06:16] LABS: Anion Gap 2 (5-15); BUN 30 mg/dL (7-18); BUN/Creat Ratio 35.3 RATIO (10-20); Calcium,Total 8.2 mg/dL (8.5-10.1); Chloride 100 mmol/L (98-107); Creatinine, Serum 0.85 mg/dL (0.70-1.30); EST Glomerular Filtration Rate 97 mL/min (>60); Est Glom Filt Rate - Afr Amer 118 mL/min (>60); Estimated Creatinine Clearance 73.45 ml/min; Glucose 118 mg/dL (74-106); Potassium 4.3 mmol/L (3.5-5.1); Sodium Level 143 mmol/L (136-145)
[2018-05-13] MEDS: guaiFENesin 600 MG Tablet PO (09:15)
[2018-05-13] MEDS: Enoxaparin 40 MG/0.4 ML Syringe SC (09:15)
[2018-05-13] MEDS: Tamsulosin HCl 0.4 MG Capsule PO (09:16)
[2018-05-13] MEDS: Furosemide 20 MG Tablet PO (09:16)
[2018-05-13] MEDS: Aspirin 81 MG TAB.CHEW PO (09:16)
[2018-05-13] MEDS: predniSONE 20 MG Tablet 40 MG PO (09:16)
[2018-05-13] MEDS: Baclofen 10 MG Tablet 20 MG PO (09:16)
[2018-05-13] MEDS: Montelukast 10 MG Tablet PO (09:17)
[2018-05-13] MEDS: oxyCODONE 5 MG Tablet PO (09:17)
[2018-05-13] MEDS: Mag Hydrox/Al Hydrox/Simeth 30 ML UDC PO (09:17)
[2018-05-13] MEDS: ROFLUMILAST 500 MCG TABLET PO (09:17)
[2018-05-13] MEDS: Famotidine 20 MG Tablet PO (09:17)
--- NOTE | 2018-05-13 12:19 | PN_ITS ---
Patient Problems: Active and Suspected Problems Sepsis (Acute) Acute and chronic respiratory failure with hypoxia (Acute) COPD exacerbation (Acute) Pneumonia (Acute) Subjective: The patient was seen and examined at the bedside this morning. Events from the last 24 hours have been reviewed. The patient is currently afebrile, hemodynamically stable and maintaining appropriate oxygen saturations on 3 L/ min via nasal cannula. Objective: The patient's most recent lab work, culture data and imaging studies have all been personally reviewed. Blood cultures have shown no growth to date. Strep and urine Legionella antigens were both negative. Respiratory viral panel was negative. - Physical Exam General: Alert, Cooperative, No apparent distress HEENT: Atraumatic, PERRLA, Normocephalic Oral: No Gingival or Mucosal Lesions/ Ulcerations Neck: Supple, No Nodes, Trachea Midline Lungs: No rhonchi, No wheeze, No rales, Diminished Cardiovascular: Regular rate, Regular Rhythm, Normal S1, Normal S2, No murmurs Abdomen: Bowel Sounds Present, Soft, Non Tender, Obese Extremities: No clubbing, No cyanosis, Edema Skin: No breakdown Musculoskeletal: No Tenderness to Palpation of Joints or Extremities Lymphatic: No Cervical, Supraclavicular, or Inguinal Adenopathy Neurological: Neuro grossly intact Psych/Mental Status: Normal Affect, Appropriate Vital Signs Temp Pulse Resp BP Pulse Ox 97.8 F 110 H 20 H 106/74 94 05/13/18 11:15 05/13/18 11:15 05/13/18 11:15 05/13/18 11:15 05/13/18 11:15 Oxygen Flow Rate (L/min) [ 4 AMBULATION with Oxygen] Oxygen Flow Rate (L/min) [ 0 AMBULATING on Room Air] Oxygen Flow Rate (L/min) 3 Oxygen Delivery Method Nasal Cannula Weight: 227 lb 4.745 oz Body Mass Index (BMI) 40.2 Intake and Output for Last 24 Hours 05/11/18 05/12/18 05/13/18 23:59 23:59 23:59 Intake Total 720 / 720 840 / 840 Output Total 400 / 400 Balance 320 / 320 840 / 840 Laboratory Tests Past 24 Hrs 05/13/18 05:14 Sodium 143 Potassium 4.3 Chloride 100 Carbon Dioxide 41.0 H Anion Gap 2 L BUN 30 H Creatinine 0.85 Estim Creat Clear Calc 73.45 Est GFR (MDRD) Af Amer 118 Est GFR (MDRD) Non-Af 97 BUN/Creatinine Ratio 35.3 H Glucose 118 H Calcium 8.2 L Clinical Impression(s) from Imaging Studies Chest X-Ray 05/04/18 21:45 IMPRESSION: Chronic interstitial changes. Cannot exclude coexisting right lower lobe pneumonia. Left pleural thickening or tiny effusion with mild basilar atelectasis. Electronically Signed: Shaun Franco MD at 22:56 EDT , Service support , Chest X-Ray 05/07/18 13:38 IMPRESSION: Slight increase in the right basilar infiltrate superimposed on bibasilar scarring. Electronically Signed: True Miranda MD at 15:36 EDT Tel [phone], Service support , Medical Necessity - Tobacco Use Smoking Status: Current some day smoker Tobacco Use: Cigarettes Assessment/Plan All Active Problems Sepsis (Acute) Acute and chronic respiratory failure with hypoxia (Acute) COPD exacerbation (Acute) Pneumonia (Acute) RECOMMENDATIONS: 1. Continue bronchodilators and steroids as ordered. 2. Continue Lasix. 3. Wean supplemental oxygen as tolerated. 4. Perform walking oximetry study prior to consideration for discharge from the hospital. 5. Please have the patient follow-up in the pulmonary medicine clinic within 2 weeks of his discharge from the hospital. IMPRESSIONS: 1. Acute on chronic hypoxic respiratory failure secondary to possible right lower lobe pneumonia/COPD exacerbation Patient reportedly with advanced COPD by PFT criteria. No records are available for review at this time. Patient does use significant supplemental oxygen at baseline, but has required BiPAP rescue while in the hospital. Patient's elevated bicarbonate is suggestive of chronic CO2 retention. Continue prednisone therapy and wean over the next 12-14 days. Perform walking oximetry study prior to consideration for discharge from the hospital. Continue gentle IV diuresis. Please have the patient follow-up with our nurse practitioner within 2 weeks of his discharge from the hospital. 2. Possible congestive heart failure versus cor pulmonale Patient was significant swelling of the lower extremities over the last 3-4 months. Clinical suspicion for at least cor pulmonale exacerbated by exertional hypoxemia. Patient may also have an element of congestive heart failure given comorbidities. Patient states he had a stress test that was normal in the past, but this is not available for review. Echocardiogram was unable to quantify right-sided heart pressures. Patient tolerating diuretic therapy well. 3. Morbid obesity/KARIN/anxiety/depression/chronic pain syndrome Complicates care, management, recovery and prognosis. Continue with baseline noninvasive therapy. Okay to continue with baseline medications from my perspective. This note was generated with [employer] dictation software. It may contain incorrect words, spelling, and punctuation that were not noted in checking the note before signing. Code Visit Inpatient E&M: [id number] Subs Hosp L2
--- NOTE | 2018-05-13 12:54 | PCM.DC ---
- Discharge Diagnoses Current Active Problems: Current Active and Chronic Problems Sepsis (Acute) Acute and chronic respiratory failure with hypoxia (Acute) COPD exacerbation (Acute) Pneumonia (Acute) KARIN (obstructive sleep apnea) (Chronic) Morbid obesity due to excess calories (Chronic) Chronic back pain (Chronic) Anxiety and depression (Chronic) Allergic rhinitis (Chronic) You will use the following diet at home:: Cardiac Your food should be the consistency of: Regular Your liquids should be the consistency of: Regular/Thin Discharge Activity: Return to Normal Activity, - - use O2 as directed Allergies/Adverse Reactions: Allergies No Known Allergies Allergy (Verified 05/04/18 21:17) Medications to take at Discharge Baclofen [Lioresal] 20 mg PO BID 01/30/14 Budesonide/Formoterol 160/4.5 [Symbicort 160/4.5 Mcg Inhaler (SP)] 2 puff INHALATION BID 01/30/14 Ipratropium/Albuterol Respimat [Combivent Respimat Inhal [place]] 1 puff INHALATION 4X/DAY 01/30/14 Lorazepam [Ativan] 0.5 mg PO BID PRN PRN 01/30/14 Oxycodone HCl/Acetaminophen [Percocet 5-325] 1 tablet PO 4X/DAY PRN 01/30/14 Aspirin [Aspirin, Baby] 81 mg PO DAILY@0800 10/24/17 Montelukast [Singulair] 10 mg PO DAILY 10/24/17 Roflumilast [Daliresp] 500 mcg PO DAILY 10/24/17 Tamsulosin HCl [Flomax] 0.4 mg PO BID 10/24/17 Bentyl 10 mg PO 05/05/18 Docusate Sodium [Colace] 100 mg PO BID 05/05/18 Melatonin 10 mg PO 05/05/18 Ropinirole HCl [Requip] 0.5 mg PO QHS 05/05/18 traZODone [Desyrel] 100 mg PO QHS 05/05/18 Acetaminophen [Tylenol Tablet] 650 mg PO Q6H PRN PRN tablet 05/13/18 Citalopram [Celexa] 40 mg PO DAILY #30 tab 05/13/18 Prednisone 10 mg PO UD #18 tab 05/13/18 The following prescriptions were given: Citalopram [Celexa] 40 mg PO DAILY #30 tab Prednisone 10 mg PO UD #18 tab Primary Care Physician: Srinivasa Henao MD [Primary Care Provider] - Please follow up with your Primary Care Physician in: 1-2 weeks Test Results: Test results from this visit will be discussed in further detail at your follow-up appointment, if applicable. Please Follow Up With: Kaila Mitchell, UTILITY WORKER-C Please Follow Up With: Kristian Hughes MD When: 2 weeks Proposed Discharge Date: 05/13/18
--- NOTE | 2018-05-13 14:47 | CASEMGMT ---
Call to [facility] and updated on pt discharge today, voices understanding. Copy of [facility] order for RN/PT/OT and discharge instructions faxed to [place] at this time. This RN REGINE also spoke with pt's CM, Tab Staley, and she is also aware of pt discharge today, voices understanding. Tasha brought a tank previously for pt to use to go home. Ashish LUCAS CM
--- NOTE | 2018-05-13 15:04 | PCM.DC.SUM ---
<Benedict Hall - Last Filed: 05/13/18 15:04> Discharge Date and Diagnosis Date of Admission: 05/04/18 Date of Discharge: 05/13/18 - Primary Discharge Diagnosis Acute sepsis secondary to community-acquired pneumonia Acute on chronic mixed clear secondary to acute COPD exacerbation and community-acquired pneumonia presumed streptococcal Obstructive sleep apnea Bilateral lower extremity edema, CHF ruled out Morbid obesity BPH - Secondary Discharge Diagnosis Chronic Problems KARIN (obstructive sleep apnea) (Chronic) Morbid obesity due to excess calories (Chronic) Chronic back pain (Chronic) Anxiety and depression (Chronic) Allergic rhinitis (Chronic) Hospital Course and Treatment Imaging Results: RAD/Chest PA and Lateral IMPRESSION: Slight increase in the right basilar infiltrate superimposed on bibasilar scarring. RAD/Chest 1 View (Portable) IMPRESSION: Chronic interstitial changes. Cannot exclude coexisting right lower lobe pneumonia. Left pleural thickening or tiny effusion with mild basilar atelectasis. Echo: Interpretation Summary The study was technically difficult. Left ventricular systolic function is normal. The estimated ejection fraction is 65 %. Moderate concentric left ventricular hypertrophy. Trivial mitral valve insufficiency. Trivial tricuspid valve insufficiency. Unable to estimate RV systolic pressure/pulmonary artery pressure due to technically difficult study. Unable to assess diastolic dysfunction. Consults: Saul - pulm Operations: None Procedures: 2-D Echocardiogram Summary of Care Provided: Physical exam on day of discharge: General: Resting comfortably NAD Psych: A/Ox3 normal affect HEENT: PEARRLA AT NC Neck: Supple NT CV: RRR no m/t/r/g/h Resp: Diminished, faint wheezes. 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 He does follow with hogshead wrecker in [place] however he is in the process of transferring his care to [place] as his hogshead wrecker is retiring. He does use a CPAP at night for sleep apnea. He was found to have a right lower lobe pneumonia and evidence of sepsis with elevated white cell count, negative lactate, fever, tachypnea, tachycardia. Pulmonology was consulted and he was admitted to the PCU on telemetry monitoring. Rocephin and azithromycin were started for pneumonia. He was also started on Solu-Medrol and aerosols for suspected COPD exacerbation. He also had some lower extremity edema and placed on Lasix. BNP was normal however. Echocardiogram was obtained and demonstrated ejection fraction of 65%, normal LV size and function. He slowly responded to treatment. Sputum culture, respiratory panel, urine antigens, blood cultures were negative. He was able to be taken off of antibiotics and transition to oral prednisone. He will complete a prednisone taper, he will continue his aerosol treatments that he has at home. He will go home on oxygen and may require up to 6 L while ambulating. He was advised to follow-up with his PCP and with posterior pulmonology. He is discharged home in stable condition. As he does not appear to have any underlying CHF he will not need to go home on Lasix. He did have a small elevation in his CO2 towards the end of his stay, likely contraction alkalosis secondary to Lasix. This patient was seen by Benedict Hall PA-C under the supervision of Doctor Aranza. [] Discharge Diet: Low fat/ Low Cholesterol, 2000 mg Sodium Diet Discharge Activity: Return to Normal Activity, - - use O2 as directed Home Medications: Medications to take at Discharge Baclofen [Lioresal] 20 mg PO BID 01/30/14 Budesonide/Formoterol 160/4.5 [Symbicort 160/4.5 Mcg Inhaler (SP)] 2 puff INHALATION BID 01/30/14 Ipratropium/Albuterol Respimat [Combivent Respimat Inhal [place]] 1 puff INHALATION 4X/DAY 01/30/14 Lorazepam [Ativan] 0.5 mg PO BID PRN PRN 01/30/14 Oxycodone HCl/Acetaminophen [Percocet 5-325] 1 tablet PO 4X/DAY PRN 01/30/14 Aspirin [Aspirin, Baby] 81 mg PO DAILY@0800 10/24/17 Montelukast [Singulair] 10 mg PO DAILY 10/24/17 Roflumilast [Daliresp] 500 mcg PO DAILY 10/24/17 Tamsulosin HCl [Flomax] 0.4 mg PO BID 10/24/17 Bentyl 10 mg PO 05/05/18 Docusate Sodium [Colace] 100 mg PO BID 05/05/18 Melatonin 10 mg PO 05/05/18 Ropinirole HCl [Requip] 0.5 mg PO QHS 05/05/18 traZODone [Desyrel] 100 mg PO QHS 05/05/18 Acetaminophen [Tylenol Tablet] 650 mg PO Q6H PRN PRN tablet 05/13/18 Citalopram [Celexa] 40 mg PO DAILY #30 tab 05/13/18 Prednisone 10 mg PO UD #18 tab 05/13/18 Following Prescrptions Were Given to Patient: Citalopram [Celexa] 40 mg PO DAILY #30 tab Prednisone 10 mg PO UD #18 tab Primary Care Physician: Srinivasa Henao MD [Primary Care Provider] - Please follow up with your Primary Care Physician in: 1-2 weeks Please Follow Up With: Kaila Mitchell NP-C Please Follow Up With: Kristian Hughes MD When: 2 weeks Disposition: Home Minutes spent on discharge:: 40 Patient Condition:: Stable Medical Necessity - Tobacco Use Smoking Status: Current some day smoker Tobacco Use: Cigarettes Meaningful Use Info Meaningful Use Diagnoses (Choose all that apply): None applicable <Brenton Cobian - Last Filed: 05/13/18 15:59> Discharge Date and Diagnosis - Secondary Discharge Diagnosis Chronic Problems KARIN (obstructive sleep apnea) (Chronic) Morbid obesity due to excess calories (Chronic) Chronic back pain (Chronic) Anxiety and depression (Chronic) Allergic rhinitis (Chronic) Hospital Course and Treatment Summary of Care Provided: The patient is a 62 year old M treated with shortness of breath. An assessment of acute on chronic hypoxic respiratory failure secondary to combination of right lower lobe pneumonia, COPD, acute diastolic congestive heart failure was made. Patient was managed in a monitored bed had a protracted stay however condition did improve after 9 days of hospitalization Patient was seen and examined on the day of his discharge his questions answered Hospital course as elicited above by Benedict Hall Total time spent on discharge process 45 minutes Code Visit Inpatient E&M: 20266 Disch Hosp
--- NOTE | 2018-05-13 15:12 | DS.PCM_ITS ---
<Benedict Hall - Last Filed: 05/13/18 15:04> Discharge Date and Diagnosis Date of Admission: 05/04/18 Date of Discharge: 05/13/18 - Primary Discharge Diagnosis Acute sepsis secondary to community-acquired pneumonia Acute on chronic mixed clear secondary to acute COPD exacerbation and community- acquired pneumonia presumed streptococcal Obstructive sleep apnea Bilateral lower extremity edema, CHF ruled out Morbid obesity BPH - Secondary Discharge Diagnosis Chronic Problems KARIN (obstructive sleep apnea) (Chronic) Morbid obesity due to excess calories (Chronic) Chronic back pain (Chronic) Anxiety and depression (Chronic) Allergic rhinitis (Chronic) Hospital Course and Treatment Imaging Results: RAD/Chest PA and Lateral IMPRESSION: Slight increase in the right basilar infiltrate superimposed on bibasilar scarring. RAD/Chest 1 View (Portable) IMPRESSION: Chronic interstitial changes. Cannot exclude coexisting right lower lobe pneumonia. Left pleural thickening or tiny effusion with mild basilar atelectasis. Echo: Interpretation Summary The study was technically difficult. Left ventricular systolic function is normal. The estimated ejection fraction is 65 %. Moderate concentric left ventricular hypertrophy. Trivial mitral valve insufficiency. Trivial tricuspid valve insufficiency. Unable to estimate RV systolic pressure/pulmonary artery pressure due to technically difficult study. Unable to assess diastolic dysfunction. Consults: Saul - pulm Operations: None Procedures: 2-D Echocardiogram Summary of Care Provided: Physical exam on day of discharge: General: Resting comfortably NAD Psych: A/Ox3 normal affect HEENT: PEARRLA AT NC Neck: Supple NT CV: RRR no m/t/r/g/h Resp: Diminished, faint wheezes. 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 He does follow with lab associate in [place] however he is in the process of transferring his care to [place] as his lab associate is retiring. He does use a CPAP at night for sleep apnea. He was found to have a right lower lobe pneumonia and evidence of sepsis with elevated white cell count, negative lactate, fever, tachypnea, tachycardia. Pulmonology was consulted and he was admitted to the PCU on telemetry monitoring. Rocephin and azithromycin were started for pneumonia. He was also started on Solu-Medrol and aerosols for suspected COPD exacerbation. He also had some lower extremity edema and placed on Lasix. BNP was normal however. Echocardiogram was obtained and demonstrated ejection fraction of 65%, normal LV size and function. He slowly responded to treatment. Sputum culture, respiratory panel, urine antigens, blood cultures were negative. He was able to be taken off of antibiotics and transition to oral prednisone. He will complete a prednisone taper, he will continue his aerosol treatments that he has at home. He will go home on oxygen and may require up to 6 L while ambulating. He was advised to follow-up with his PCP and with posterior pulmonology. He is discharged home in stable condition. As he does not appear to have any underlying CHF he will not need to go home on Lasix. He did have a small elevation in his CO2 towards the end of his stay, likely contraction alkalosis secondary to Lasix. This patient was seen by Benedict Hall PA-C under the supervision of Doctor Aranza. [] Discharge Diet: Low fat/ Low Cholesterol, 2000 mg Sodium Diet Discharge Activity: Return to Normal Activity, - - use O2 as directed Home Medications: Medications to take at Discharge Baclofen [Lioresal] 20 mg PO BID 01/30/14 Budesonide/Formoterol 160/4.5 [Symbicort 160/4.5 Mcg Inhaler (SP)] 2 puff INHALATION BID 01/30/14 Ipratropium/Albuterol Respimat [Combivent Respimat Inhal [place]] 1 puff INHALATION 4X/DAY 01/30/14 Lorazepam [Ativan] 0.5 mg PO BID PRN PRN 01/30/14 Oxycodone HCl/Acetaminophen [Percocet 5-325] 1 tablet PO 4X/DAY PRN 01/30/14 Aspirin [Aspirin, Baby] 81 mg PO DAILY@0800 10/24/17 Montelukast [Singulair] 10 mg PO DAILY 10/24/17 Roflumilast [Daliresp] 500 mcg PO DAILY 10/24/17 Tamsulosin HCl [Flomax] 0.4 mg PO BID 10/24/17 Bentyl 10 mg PO 05/05/18 Docusate Sodium [Colace] 100 mg PO BID 05/05/18 Melatonin 10 mg PO 05/05/18 Ropinirole HCl [Requip] 0.5 mg PO QHS 05/05/18 traZODone [Desyrel] 100 mg PO QHS 05/05/18 Acetaminophen [Tylenol Tablet] 650 mg PO Q6H PRN PRN tablet 05/13/18 Citalopram [Celexa] 40 mg PO DAILY #30 tab 05/13/18 Prednisone 10 mg PO UD #18 tab 05/13/18 Following Prescrptions Were Given to Patient: Citalopram [Celexa] 40 mg PO DAILY #30 tab Prednisone 10 mg PO UD #18 tab Primary Care Physician: Srinivasa Henao MD [Primary Care Provider] - Please follow up with your Primary Care Physician in: 1-2 weeks Please Follow Up With: Kaila Mitchell NP-C Please Follow Up With: Kristian Hughes MD When: 2 weeks Disposition: Home Minutes spent on discharge:: 40 Patient Condition:: Stable Medical Necessity - Tobacco Use Smoking Status: Current some day smoker Tobacco Use: Cigarettes Meaningful Use Info Meaningful Use Diagnoses (Choose all that apply): None applicable <Brenton Cobian - Last Filed: 05/13/18 15:59> Discharge Date and Diagnosis - Secondary Discharge Diagnosis Chronic Problems KARIN (obstructive sleep apnea) (Chronic) Morbid obesity due to excess calories (Chronic) Chronic back pain (Chronic) Anxiety and depression (Chronic) Allergic rhinitis (Chronic) Hospital Course and Treatment Summary of Care Provided: The patient is a 62 year old M treated with shortness of breath. An assessment of acute on chronic hypoxic respiratory failure secondary to combination of right lower lobe pneumonia, COPD, acute diastolic congestive heart failure was made. Patient was managed in a monitored bed had a protracted stay however condition did improve after 9 days of hospitalization Patient was seen and examined on the day of his discharge his questions answered Hospital course as elicited above by Benedict Hall Total time spent on discharge process 45 minutes Code Visit Inpatient E&M: [id number] Disch Hosp
--- NOTE | 2018-05-14 10:16 | CASEMGMT ---
Discharge summary faxed to [facility] at this time. Ashish LUCAS CM
--- NOTE | 2018-05-14 13:47 | CASEMGMT ---
SHAYY WEINER DC phone call. DC DATE: 05/14/18 LACE 14/STRATA 4 Disposition: Home Intro role of CM to patient via phone. No questions re: dc instructions, however pt states he did not get prescriptions. Discussed options, pt will call his pharmacy as physician may have efaxed script. Pharmacy verified as [facility] in [place]. Pt will call pharmacy, and if scripts are not available will call to PCU charge nurse to get scripts written for machine pecan picker. Phone # for PCU pharmacy given to patient. No further questions. Katia PINEDAN RN ACM
== END 2018-05-13 15:00 | disposition home or self-care (01) | DRG 871 ==
LOC: ED 21:50 → PCU 05-05 00:03
PROVIDERS: Internal Medicine; Internal Medicine Critical Care Medicine; Admitting Provider Family Medicine; Emergency Provider Emergency Medicine; Family Provider Internal Medicine; PCP Internal Medicine; Visit Provider Internal Medicine
DX: A41.9 Sepsis, unspecified organism (principal); J15.4 Pneumonia due to other streptococci; J96.21 Acute and chronic respiratory failure with hypoxia; J44.1 Chronic obstructive pulmonary disease with (acute) exacerbation; J44.0 Chronic obstructive pulmonary disease with (acute) lower respiratory infection; Z68.41 Body mass index [BMI] 40.0-44.9, adult; E66.01 Morbid (severe) obesity due to excess calories; G47.33 Obstructive sleep apnea (adult) (pediatric); M54.9 Dorsalgia, unspecified; G89.4 Chronic pain syndrome; F41.9 Anxiety disorder, unspecified; F32.9 Major depressive disorder, single episode, unspecified; R60.0 Localized edema; N40.0 Benign prostatic hyperplasia without lower urinary tract symptoms; J30.9 Allergic rhinitis, unspecified; Z79.899 Other long term (current) drug therapy; Z99.81 Dependence on supplemental oxygen; F17.210 Nicotine dependence, cigarettes, uncomplicated
CPT/HCPCS: 36415; 36600; 71045; 71046; 80048; 80053; 82803; 83605; 83735; 83880; 85025; 87040; 87070; 87205; 87449; 87633; 93005; 93306; 94002; 94003; 94640; 94667; 94668; 97110; 97116; 97162; 97166; 97530; 97535; 97802; 99251; 99285; 99406; J7030; A4216; G0463; J0696

== ENCOUNTER → 2018-06-06 10:55 | Outpatient (CLI) | payer MEDICARE, MEDICAID, SELFPAY ==
[2018-06-06 12:18] LABS: AST(SGOT) 19 U/L (15-37); Alanine Aminotransfer ALT/SGPT 39 U/L (16-61); Albumin, Serum 3.2 g/dL (3.2-5.0); Alkaline Phosphatase 74 U/L (45-117); Bilirubin, Direct 0.17 mg/dL (0.00-0.30); Cholesterol 164 mg/dL (200); Globulin 3.3 g/dL (2.2-4.2); High Density Lipoprotein 72 mg/dL; Protein, Total 6.5 g/dL (6.4-8.2); Triglycerides 77 mg/dL; Very Low Density Lipoprotein 15 mg/dL (5-40)
== END ==
PROVIDERS: Family Provider Internal Medicine; PCP Internal Medicine; Referring Provider Internal Medicine Cardiovascular Disease; Visit Provider Internal Medicine Cardiovascular Disease
DX: R07.9 Chest pain, unspecified (principal); R94.31 Abnormal electrocardiogram [ECG] [EKG]
CPT/HCPCS: 36415; 80061; 80076

== ENCOUNTER 2018-06-12 09:01 | Day surgery (SDC) | payer MEDICARE, MEDICAID, SELFPAY ==
[2018-06-11 10:20] VITALS: BMI 40.8
[2018-06-12 09:39] LABS: Hematocrit 42.8 % (40-54); Hemoglobin 13.7 g/dl (13.0-16.5); Mean Corpuscular Hgb 30.9 pg (27.0-32.0); Mean Corpuscular Volume 96.4 fL (80-94); Mean Platelet Vol. 9.4 fl (6.2-12.0); Platelet Count 204 K/mm3 (150-450); RBC Distribution Width CV 14.1 % (11.6-14.6); Red Blood Count 4.44 M/mm3 (4.6-6.2); Scan Indicated on CBC? Y/N NO; White Blood Count 8.6 K/mm3 (4.4-11.0)
[2018-06-12 09:50] LABS: International Normalized Ratio 0.9; Prothrombin Time (Protime)PT. 11.9 SECONDS (11.7-14.9)
[2018-06-12 10:09] LABS: Anion Gap 6 (5-15); BUN 11 mg/dL (7-18); Calcium,Total 8.7 mg/dL (8.5-10.1); Chloride 102 mmol/L (98-107); Creatinine, Serum 0.69 mg/dL (0.70-1.30); EST Glomerular Filtration Rate 124 mL/min (>60); Est Glom Filt Rate - Afr Amer 150 mL/min (>60); Estimated Creatinine Clearance 86.82 ml/min; Glucose 101 mg/dL (74-106); Potassium 4.3 mmol/L (3.5-5.1); Sodium Level 142 mmol/L (136-145)
--- NOTE | 2018-06-12 11:22 | CL.D_ITS ---
Patient Name: MALISSA BAUTISTA Study Date: 06/12/2018 Performing: Ricki Jordan MD Ht: 61.81 inches 157 cm : 1955 Wt: 222.67 lbs 101 kg Age: 62 Gender: male BSA: 2 PROCEDURE(S) PERFORMED [id number]/LHC/COR/LV CLINICAL PROFILE AND INDICATIONS Indications: New Onset Angina <= 2 months, Worsening Angina, Suspected CAD Heart Failure: NYHA Class: 2, Newly Diagnosed: Yes, Heart Failure Type: Diastolic Stress/Imaging Stress Test w/SPECT MPI: Yes Result: NegativeStress Test with SPECT MPI: Negative Angina Classification Anginal Classification w/in 2 Weeks: CCS IV CAD Presentations: Symptom unlikely to be ischemic. Comorbidities/Risk Factors: Current/Recent Smoker (< 1year) Hypertension Family History of Premature CAD Prior CHF Chronic Lung Disease CONCLUSIONS Non obstructive coronary arteries Perserved Left Ventricular systolic function with normal EDP The patient has pulmonary hypertension which is mild. RECOMMENDATIONS ASA Indefinitely Risk factor modification Management as per referring Compliance Director F/u with Dr Jordan and Dr Hughes; cont lasix for pulmonary HTN. Consider pulmonary rehab. Manual sheath removal. DESCRIPTION OF PROCEDURE The patient arrived to the procedure lab. The risks and benefits of the procedure as well as a full d escription of our services here and current unavailability of surgical backup were fully explained to the patient and/or their significant other prior to the catheterization. The Timeout was completed, verifying the correct patient and procedure. The patient's procedural site was prepped and draped in the usual fashion. Local anesthetic was given subcutaneously to right groin region with Lidocaine 2%. Using a modified Seldinger technique, arterial access was obtained via the right femoral artery, a 4 Fr sheath was inserted Venous access was obtained via the right femoral vein, a 7Fr sheath was insert ed. A 7Fr thermal dilution catheter was inserted and right heart pressures were recorded, it was then advanced to PA position for cardiac outputs. O2 saturations were then obtained. Thermal dilution car diac outputs were then recorded. The Thermal dilution catheter was then removed. Left Ventriculograph y was performed in DONG projection using a 4 Fr. Pigtail catheter. LV to AO pullback pressures were th en recorded. Left Coronary Artery selective angiography was performed in multiple views using a 4 Fr. JL5 catheter. Right Coronary Artery selective angiography was then performed in multiple views using a 4 Fr. 3DRC catheter.The arterial sheath was pulled and manual compression applied until hemostasis is achieved. CORONARY ANGIOGRAPHY DOMINANCE: Right Dominant LEFT HEART ASSESSMENT Left Ventricular Ejection Fraction: by LV Gram 65 % Normal LV wall motion Normal Left Ventricular systolic function LVEDP: 10 mmHg RIGHT HEART ASSESSMENT Thermal CO: 10.62 Thermal CI: 5.31 Cheryl CO: 10.2 Cheryl CI: 5.1 PW: 17/07 8 PA: 41/3 10 RV: 37/2 10 RA: 04/12 5 PVR: 15 Right Heart pressures - elevated Pulmonary Hypertension Mild LEFT MAIN: Angiographically normal LEFT ANTERIOR DECENDING ARTERY: Non-obstructive PROX LAD: Mild calcification CIRCUMFLEX ARTERY: Angiographically normal RIGHT CORONARY ARTERY: Angiographically normal COMPLICATIONS No Complications PROCEDURE MEDICATIONS Versed 1 mg IV Oxygen: 4 L/min via nasal cannula Oxygen: Discontinued Oxygen: 4 L/min via nasal cannula Baby Aspirin (81mg) 1 Tabs PO @ 06/12/2018 10:15:42 Plavix 75 mg PO 06/12/2018 10:15:49 SUMMARY OF HEMODYNAMIC DATA Time AIR REST ECG 09:51:35 RA 8/10 (5) SV 10:56:32 RV 37/2, 10 10:56:48 PA 41/3 (10) PA 10:58:44 PA 40/7 (22) 11:00:39 PW 17/07 (8) PV 11:00:55 LV 118/-9, 10 11:04:47 LV 117/-10, 9 11:05:05 PW / (19) 11:05:05 LV 114/-13, 6 11:05:30 RV 42/0, 4 11:05:30 LV 114/-7, 24 11:05:48 RV 45/2, 11 11:05:48 LVp 112/-14, 7 11:06:55 AOp 106/64 (81) 11:07:00 Type SV CO (l/m) CI (l/m/ HR Time AIR REST Thermal 119.30 10.62 5.31 89 09:51:35 Cheryl 114.60 10.20 5.10 89 09:51:35 Label % O2 Pres/Loc Time AIR REST PA 57 PA 11:17:15 AO 71 PV 11:17:22 Signed By Ricki Jordan MD On 06/12/2018 11:21:30 Ricki Jordan MD
[2018-06-12 11:46] LABS: Blood Gas Specimen Type VEN; VBG BASE EXCESS 6 mmol/L (-1.0-3.5); VBG Bicarbonate 32 mmol/L (22-26); VBG Oxygen Content 34 mmol/L (23-33); VBG PO2 33 mmHg (25-40); VBG SO2 58 % (50-70); VBG pCO2 60.8 mmHg (41-51); VBG pH 7.33 (7.32-7.42)
[2018-06-12 11:46] LABS: Blood Gas Specimen Type VEN; VBG BASE EXCESS 7 mmol/L (-1.0-3.5); VBG Bicarbonate 32 mmol/L (22-26); VBG Oxygen Content 34 mmol/L (23-33); VBG PO2 32 mmHg (25-40); VBG SO2 55 % (50-70); VBG pH 7.33 (7.32-7.42)
[2018-06-12 11:46] LABS: Base Excess 5 mmol/L (-2 to +2); Bicarbonate 30.7 mmol/L (22-26); Blood Gas Specimen Type ART; PO2 40 mmHG (75-100); SO2 71 % (95-99); Total Carbon Dioxide 32 mmol/L; pCO2 56.3 mmHg (35-45); pH 7.35 (7.35-7.45)
[2018-06-12 13:55] VITALS: PULSE 75; RESP 16
[2018-06-12] MEDS: Ipratropium/Albuterol Sulfate 3 ML AMPUL.NEB INHALATION (13:55)
== END 2018-06-12 15:56 | disposition home or self-care (01) ==
LOC: CLSP 09:03
PROVIDERS: Family Provider Internal Medicine; PCP Internal Medicine; Referring Provider Internal Medicine Cardiovascular Disease; Visit Provider Internal Medicine Cardiovascular Disease
DX: I20.9 Angina pectoris, unspecified (principal); R07.89 Other chest pain; R06.02 Shortness of breath; J44.9 Chronic obstructive pulmonary disease, unspecified; R60.0 Localized edema; F31.9 Bipolar disorder, unspecified; N40.0 Benign prostatic hyperplasia without lower urinary tract symptoms; K21.9 Gastro-esophageal reflux disease without esophagitis; G47.33 Obstructive sleep apnea (adult) (pediatric); F17.210 Nicotine dependence, cigarettes, uncomplicated; Z99.81 Dependence on supplemental oxygen; Z79.51 Long term (current) use of inhaled steroids; Z79.891 Long term (current) use of opiate analgesic; Z79.899 Other long term (current) drug therapy
CPT/HCPCS: 36415; 80048; 82803; 85027; 85610; 93005; 93460; 94640; 99152; 99153; J7040; Q9967; C1751; C1769; C1894

== ENCOUNTER → 2018-06-27 10:43 | Outpatient (CLI) | payer MEDICARE, MEDICAID, SELFPAY ==
--- NOTE | 2018-06-28 12:20 | PFT ---
INTRODUCTION: The patient is a 62-year-old male that presents for pulmonary function testing secondary to a diagnosis of COPD. Respiratory therapy reports good patient effort. Bronchodilators were used during testing. INTERPRETATION: Forced expiration spirometry demonstrates the presence of a severe large airways obstructive ventilatory defect. There was no significant response to aerosolized bronchodilators. Spirograms are of fair quality and do not plateau indicating slow emptying of the lungs. Body plethysmography was performed and reveals an elevated RV to 158% of predicted, indicative of underlying air trapping. Diffusing capacity by single breath CO is moderately reduced at 46% of predicted. IMPRESSION: These pulmonary function studies demonstrate the presence of an irreversible severe large airways obstructive ventilatory defect with associated air trapping and reduction in diffusing capacity.
== END ==
PROVIDERS: Family Provider Internal Medicine; PCP Internal Medicine; Referring Provider Nurse Practitioner Acute Care; Visit Provider Nurse Practitioner Acute Care
DX: J44.1 Chronic obstructive pulmonary disease with (acute) exacerbation (principal)
CPT/HCPCS: 94060; 94726; 94729

== ENCOUNTER → 2019-03-28 | Outpatient (CLI) | payer MEDICARE, MEDICAID, SELFPAY ==
[2018-11-27 11:12] VITALS: BMI 43.0
--- NOTE | 2019-03-28 12:45 | CT_ITS ---
HISTORY: Nicotine dependence, quit smoking 1 year ago, smoke 1 pack/day x 40 years, COPD, home O2, 219#. EXAMINATION: CT Low Dose CT Chest for Lung Cancer Screening TECHNIQUE: Helically acquired images were obtained of the chest. A radiation dose optimization technique was used for this scan. IV Contrast dosage and agent: None. COMPARISON: None FINDINGS: LUNGS, PLEURA AND LARGE AIRWAYS: 6 mm nodule superior segment left lower lobe axial image 57. No other nodules are evident. Moderate emphysema. Mild atelectasis/scarring periphery of the lingula, right middle lobe and posterior lung bases.. No pleural effusion or thickening. No pneumothorax. THYROID: Mildly enlarged and nodular thyroid. HEART AND PERICARDIUM: Heart size is normal. Trace pericardial fluid. Coronary artery atherosclerosis. VESSELS: 4.1 cm diameter ascending thoracic aortic aneurysm. MEDIASTINUM AND CARSON: No mediastinal or hilar adenopathy. Esophagus is unremarkable. No hiatal hernia. UPPER ABDOMEN: No acute pathology. BONES: No suspicious lytic or blastic abnormality. CT/Low Dose CT Lung Screening IMPRESSION: 6 mm nodule superior segment left lower lobe. Lung RADS 3. 6 month follow-up CT suggested. Moderate emphysema. 4.1 cm descending thoracic aortic aneurysm. Coronary artery atherosclerosis. Mildly enlarged and nodular thyroid gland. Individualized dose optimization techniques were used for this CT. at 2024 Reported and signed by: Ian Khan MD Electronically Signed: Ian Khan, at 20:23 EDT Tel , Service support ,
== END | disposition home or self-care (01) ==
LOC: CT 12:44
PROVIDERS: Family Provider Internal Medicine; PCP Internal Medicine; Referring Provider Nurse Practitioner Acute Care; Visit Provider Nurse Practitioner Acute Care
DX: F17.200 Nicotine dependence, unspecified, uncomplicated (principal); Z87.891 Personal history of nicotine dependence; Z12.2 Encounter for screening for malignant neoplasm of respiratory organs
CPT/HCPCS: G0297

== ENCOUNTER → 2019-07-22 09:31 | Outpatient (CLI) | payer MEDICARE, MEDICAID, SELFPAY ==
[2018-11-27 11:12] VITALS: BMI 43.0
--- NOTE | 2019-07-23 09:52 | PFT ---
INTRODUCTION: The patient is a 63-year-old male that presents for pulmonary function studies secondary to a diagnosis of COPD. Respiratory therapy reports good patient effort. Bronchodilators were used during testing. INTERPRETATION: Forced expiration spirometry demonstrates the presence of a very severe large airways obstructive ventilatory defect. There was no significant response to aerosolized bronchodilators. Spirograms are of fair quality and do not plateau indicating slow emptying of the lungs. Body plethysmography was performed and revealed an elevated TLC and RV, indicative of underlying hyperinflation and air trapping. Diffusing capacity by single breath CO is reduced at 58% of predicted. IMPRESSION: Irreversible very severe large airways obstructive ventilatory defect with associated hyperinflation, air trapping and reduction in diffusing capacity.
== END ==
PROVIDERS: Family Provider Internal Medicine; PCP Internal Medicine; Referring Provider Nurse Practitioner Acute Care; Visit Provider Nurse Practitioner Acute Care
DX: J44.9 Chronic obstructive pulmonary disease, unspecified (principal)
CPT/HCPCS: 94060; 94726; 94729

== ENCOUNTER → 2019-08-12 10:14 | Outpatient (CLI) | payer MEDICARE, MEDICAID, SELFPAY ==
[2018-11-27 11:12] VITALS: BMI 43.0
--- NOTE | 2019-08-12 10:44 | CT_ITS ---
STUDY: CT CHEST WITHOUT CONTRAST REASON FOR EXAM: Male, 63 years old. Follow-up nodule RADIATION DOSAGE (If Supplied By Facility): CTDIvol = ( 17.98 ) mGy, DLP = ( 633.37 ) mGycm TECHNIQUE: Transaxial imaging was performed without the administration of intravenous contrast material. Individualized dose optimization techniques were used for this CT. COMPARISON: 03/28/2019. FINDINGS: There are emphysematous changes of the lungs with emphysematous blebs and prominent hyperexpansion. Decreased prominence of the 6 mm nodule of the superior segment of left lobe which appears to be vascular. No other nodules. No infiltrates. No effusions. There is no demonstrated pleural abnormality. Normal heart and pericardium. There are calcifications of the coronary arteries. Small pericardial effusion. Normal mediastinum. Normal hilar regions. Normal unenhanced pulmonary arteries. Normal aorta arch and descending thoracic aorta. Normal osseous structures. There is no demonstrated abnormality of the visualized upper abdomen. CT/Chest without Contrast IMPRESSION: 6 mm spiculated density in the superior segment of the left lower lobe is stable and is probably a vascular origin. There are findings consistent with COPD. There is no evidence of acute chest disease. Electronically Signed: Pedro Rodríguez MD at 18:02 EST , Service support ,
[2019-08-12 10:46] VITALS: PULSE 101; PULSE 104; PULSE 106; PULSE 110; PULSE 112; PULSE 113; PULSE 95; PULSE 97; O2SAT 85; O2SAT 87; O2SAT 90; O2SAT 91; O2SAT 92; O2SAT 94
--- NOTE | 2019-08-12 10:56 | CPS ---
He came in wearing 6 LPM pulse O2 removed he dropped to 87% within 3 mins O2 reapplied at 6 LM, He started walking at 2 1/2 mins dropped to 85% increased O2 to 8 LPM he rested until 345 into test to recuit to 90% continued walking on 8 LPM until end of testing decreased his O2 back to 6 LPM at 71/2 mins SPO2 was 91% and at 8 1/2 mins he was 92% and at 1000 mins he was 94%.
--- NOTE | 2019-08-12 16:01 | PCM.PSN.6M ---
PSN 6 Minute Walk Test - 6 Minute Walk Test 6 Minute Walk Test: 6 Minute Walk Test PSN:6-Minute Walk Test Start: 08/12/19 10:45 Freq: Status: Active Protocol: [id number].6MINW Document 08/12/19 10:46 FR (Rec: 08/12/19 11:02 FR [id number]) 6 Minute Walk Test Date Performed 08/12/19 Time Performed 10:30 Height 5 ft 4 in Weight: 103.873 kg Weight in Pounds 229.[address]: Kristian Hughes Assistive device used: None Pre-test Oxygen Flow Rate (L/min) (L/min) 21 Oxygen Delivery Method Room Air Pulse Ox (%) 87 Pulse Rate (60-100 beats/min) 97 Dyspnea David Scale (0-10) 0 Exertion David Scale (6-20) 6 1st minute Oxygen Flow Rate (L/min) (L/min) 6 Oxygen Delivery Method Nasal Cannula Pulse Ox (%) 91 Pulse Rate (60-100 beats/min) 106 H Reported Symptoms Increased Work of Breathing 2nd minute Oxygen Flow Rate (L/min) (L/min) 6 Oxygen Delivery Method Nasal Cannula Pulse Ox (%) 85 Pulse Rate (60-100 beats/min) 112 H Number of Rests Taken 1 Reported Symptoms Increased Work of Breathing 3rd minute Oxygen Flow Rate (L/min) (L/min) 8 Oxygen Delivery Method Nasal Cannula Pulse Ox (%) 90 Pulse Rate (60-100 beats/min) 110 H Reported Symptoms Increased Work of Breathing 4th minute Oxygen Flow Rate (L/min) (L/min) 8 Oxygen Delivery Method Nasal Cannula Pulse Ox (%) 92 Pulse Rate (60-100 beats/min) 101 H Reported Symptoms Increased Work of Breathing 5th minute Oxygen Flow Rate (L/min) (L/min) 8 Oxygen Delivery Method Nasal Cannula Pulse Ox (%) 92 Pulse Rate (60-100 beats/min) 104 H Reported Symptoms Increased Work of Breathing 6th minute Oxygen Flow Rate (L/min) (L/min) 8 Oxygen Delivery Method Nasal Cannula Pulse Ox (%) 90 Pulse Rate (60-100 beats/min) 113 H Dyspnea David Scale (0-10) 8 Exertion David Scale (6-20) 10 Reported Symptoms Increased Work of Breathing Post-test Oxygen Flow Rate (L/min) (L/min) 6 Oxygen Delivery Method Nasal Cannula Pulse Ox (%) 94 Pulse Rate (60-100 beats/min) 95 Reported Symptoms Cyanotic,Increased Work of Breathing Full Laps Walked 9 Partial Lap, Number of Tiles Walked 28 Total Distance Walked (ft) 559 08/12/19 10:56 Cardiopulmonary Services by Saba You He came in wearing 6 LPM pulse O2 removed he dropped to 87% within 3 mins O2 reapplied at 6 LM, He started walking at 2 1/2 mins dropped to 85% increased O2 to 8 LPM he rested until 345 into test to recuit to 90% continued walking on 8 LPM until end of testing decreased his O2 back to 6 LPM at 71/2 mins SPO2 was 91% and at 8 1/2 mins he was 92% and at 1000 mins he was 94%. Initialized on 08/12/19 10:56 - END OF NOTE - Interpretation Interpretation: Patient noted to be 87% on room air. Patient placed on 6 L/min with improvement to 91%. Patient desaturated to 85% in the second minute and took a break for almost a minute and a half. Patient then ambulated for the remainder of the 6 minutes. In total, patient traveled 559 feet over the course of 6 minutes. These findings are consistent with a respiratory limitation exercise tolerance - Recommendations Recommendations: Patient requires 6 L/min at rest, but should be using 8 L/min with any ambulation.
== END ==
PROVIDERS: Family Provider Internal Medicine; PCP Internal Medicine; Referring Provider Internal Medicine Critical Care Medicine; Visit Provider Internal Medicine Critical Care Medicine
DX: J44.9 Chronic obstructive pulmonary disease, unspecified (principal); R91.1 Solitary pulmonary nodule
CPT/HCPCS: 71250; 94618

== ENCOUNTER 2020-06-08 11:45 | Day surgery (SDC) | payer MEDICARE, MEDICAID, SELFPAY ==
[2019-12-05 13:53] VITALS: BMI 43.0
--- NOTE | 2020-06-07 16:52 | HP.PCM_ITS ---
History and Physical Date of Admission: 06/08/20 Mao Purcell 1955 ? REFERRING PHYSICIAN: Srinivasa Henao MD ? CHIEF COMPLAINT: Consult ? HPI: The patient is a 64 year old male referred for endoscopy. Mao notes a history of colon polyps. Patient denies any change in bowel habits, weight changes, blood in stools, black tarry stools or abdominal pain. Denies family history of colon issues. The patient notes no upper GI complaints. ? Mao has undergone prior endoscopy. Most recent colonoscopy 02/22/[address] Masters performed under Monitored Anesthetic Care, with removal of multiple adenomatous polyps. Repeat colonoscopy was recommended in 3 years. ? Patient's past medicalhistory is significant for COPD, on continuous home oxygen and follows with Dr. Malave in pulmonology. Additional medical history significant for tobacco use, obstructive sleep apnea, tobacco use, bipolar disorder. Patient denies any changes in health or recent hospitalizations. Denies problems with sedation in the past, ? ? PAST MEDICAL HISTORY PAST MEDICAL HISTORY Diagnosis Date ? Abnormal hepatitis serology 10/02/2012 ? False Positive Hepatitis C. PCR negative. ? Benign neoplasm of rectum and anal canal ? ? Bipolar disorder, unspecified (HCC) ? ? BPH (benign prostatic hyperplasia) 10/08/2007 ? BPH W URINARY OBS/LUTS 10/08/2007 ? Chronic obstructive pulmonary disease with acute exacerbation (HCC) 05/04/2005 ? Ervin Malave MD, pulmonary. ? Chronic rhinitis 05/04/2005 ? Degeneration of lumbar or lumbosacral intervertebral disc ? ? Diverticulosis of large intestine without hemorrhage 03/01/2016 ? Esophageal reflux ? ? Ganglion cyst of wrist 08/01/2011 ? Genital warts 07/16/2017 ? Lumbago 1998, 2003 ? Workmans Comp ? Obstructive chronic bronchitis with exacerbation (HCC) ? ? COPD ? Obstructive sleep apnea 09/15/2009 ? AHI 28.2. ? Periodic limb movement sleep disorder 09/15/2009 ? Tobacco use disorder 09/06/2009 ? Tubular adenoma of colon 11/24/2010 ? Unspecified psychosexual disorder ? ? ERECTILE DYSFUNCTION ? ? PAST SURGICAL HISTORY PAST SURGICAL HISTORY Procedure Laterality Date ? COLONOS W/REM POLYP SNARE ? 11/24/10 ? COLONOSCOPY W/BIOPSY ? 02/22/16 ? Tubular adenomas x 4, sigmoid diverticulosis ? PULMONARY FUNCTION TEST ? 08/14/02 ? REPAIR UMBILICAL ARIC,5+Y/O,REDUC ? 2002 ? Hernia repair, umbilical >5yr ? REVISE MEDIAN N/CARPAL TUNNEL SURG Right 04/25/2011 ? Carpal tunnel decomp right and excision wrist flexor compartment tenosynovium ? REVISE MEDIAN N/CARPAL TUNNEL SURG Right 10/17/2011 ? Carpal tunnel decomp - right revision with dissection of scar tissue ? RIGHT AND LEFT HEART CATHETERIZATION ? 06/12/2018 ? [facility], Dr. Jordan ? STRESS TEST ? 02/07/2017 ? Normal ? VASECTOMY ? CURRENT MEDICATIONS Current Outpatient Medications Medication Sig ? meloxicam (MOBIC) 15 mg tablet Take 1 tablet by mouth once daily. With food. For arthritis pain. ? montelukast (SINGULAIR) 10 mg tablet Take 1 tablet by mouth once daily. ? rOPINIRole (REQUIP) 0.5 mg tablet Take 2 tablets by mouth daily at bedtime. For restless legs. Dr. Fish. ? DALIRESP 500 mcg tab Take 1 tablet by mouth once daily. Dr. Kristian Hughes. ? ipratropium-albuterol (DUONEB) 0.5 mg-3 mg(2.5 mg base)/3 mL nebu Inhale 3 mL as instructed four times daily. Dr. Kristian Hughes. ? budesonide-formoterol (SYMBICORT) 160-4.5 mcg/actuation inhaler Inhale 2 Puffs as instructed twice daily. Dr. Kristian Hughes. ? sildenafil (REVATIO) 20 mg tablet Take 3 tablets by mouth once daily as needed (30 minutes before intercourse). ? tamsulosin ER (FLOMAX) 0.4 mg Take 1 capsule by mouth every 12 hours. ? docusate sodium (COLACE) 100 mg capsule Take 1 capsule by mouth twice daily as needed for Constipation. ? NICOTINE TRANSDERM. Apply 1 Patch as directed once daily. ? nystatin (MYCOSTATIN) cream Apply 1 application to affected area twice daily. For groin rash/jock itch. ? traZODone (DESYREL) 50 mg tablet Take 1 tablet by mouth daily at bedtime. Dr. Fish. ? baclofen (LIORESAL) 10 mg tablet Take 10 mg by mouth twice daily. Patient taking 1-2 tablets PRN. ? ? LORazepam (ATIVAN) 0.5 mg tab Take 0.5 mg by mouth twice daily. ? oxyCODONE-acetaminophen (PERCOCET) 5-325 mg tablet Take 1 tablet by mouth four times daily as needed (per [facility], Dr. Combs). ? COMBIVENT RESPIMAT 20-100 mcg/actuation aero inhaler ? ? NASONEX 50 mcg/actuation nasal spray ? ? benzonatate 100 mg capsule Take 1 capsule by mouth three times daily. Per lung specialist. ? Oxygen-Air Delivery Systems Katie 2 LPM daytime. 4 LPM at bedtime with BIPAP. Dr. Jomar Carpio, Sleep Specialist. ? aspirin(ECOTRIN LOW STRENGTH 81 MG TAB) Take one(1) tablet daily. ? benztropine (COGENTIN) 0.5 mg tablet Take 1 tablet by mouth twice daily. Per Dr. Fish ? citalopram (CELEXA) 40 mg tablet Take 1 tablet by mouth once daily. Dr. Fish. ? haloperidol (HALDOL) 5 mg tablet Take 1 tablet by mouth daily at bedtime. Dr. Fish. ? No current facility-administered medications for this visit. ? ? ALLERGIES: Patient has no known allergies. ? PERSONAL HISTORY: SOCIAL HISTORY Social History ? Tobacco Use ? Smoking status: Former Smoker ? ? Packs/day: 1.00 ? ? Years: 47.00 ? ? Pack years: 47.00 ? ? Types: Cigarettes ? ? Quit date: 05/04/2018 ? ? Years since quittin.0 ? Smokeless tobacco: Former User ? ? Types: Chew ? Tobacco comment: Vaping Substance Use Topics ? Alcohol use: Not Currently ? ? Comment: very rare ? Drug use: Not Currently ? ? Types: IV ? ? Comment: IVDA (melisa roque) in his teens & early 20s ? FAMILY HISTORY: FAMILY HISTORY FAMILY HISTORY Problem Relation Age of Onset ? Cancer Mother ? ? cervical ? Cancer Father ? ? brain - spread ? Psychiatry Sister ? ? BIPOLAR ? Psychiatry Daughter ? ? BIPOLAR ? Cancer Brother ? ? brain ? ? REVIEW OF SYMPTOMS: The review of systems data was entered by the nurse and reviewed by me ? Nursing Notes: Duyen Morrison RN 05/07/2020 3:38 PM Signed REVIEW OF SYSTEMS: General: The patient denies fatigue, denies weight loss, denies weight gain, denies feeling hot, and denies feelings of cold. Eyes: The patient denies glaucoma, notes eye injury/surgery, does not wear glasses or contacts. Ear/Nose/Throat: The patient denies allergies, denies hayfever, denies ear infections, and notes bloody noses. Cardiovascular: The patient denies chest pain, denies heart disease, denies high blood pressure,denies cardiac stent, denies prior heart attack, denies irregular heart beat, denies high cholesterol, denies poor circulation, denies heart failure, other cardiac issues, denies claudication, denies cold feet, denies peripheral arterial stent. Respiratory: The patient denies tuberculosis, notes pneumonia, notes freq uent cough, denies pulmonary embolism, notes shortness of breath, and denies coughing up blood. Gastrointestinal: The patient denies difficulty swallowing, denies acid reflux, denies ulcers, denies vomiting, denies jaundice/hepatitis, denies gallbladder problems, denies black or tarry stools, denies hemorrhoids, denies bleeding from rectum, denies diverticulitis, notes constipation, denies d iarrhea, denies loss of stool control, and notes hernias. Kidney/Bladder: The patient denies kidney stones, denies urine infections, and denies bloody urine. Skin: The patient denies a history of skin cancer, denies bleeding/changing moles, and denies a history of skin rash. Neurologic: The patient denies a history of epilepsy/convulsions, denies headaches, denies head/spinal injuries, and denies stroke/TIA. Psychiatric: The patient notes psychiatric medications, notes depression, and denies voices, denies substance abuse. Endocrine: The patient denies thyroid disorders, denies diabetes, and denies hormonal problems. Hematologic: The patient denies a history of bruising, denies bleeding, and denies anemia, denies blood clots. Infections: The patient notes a history of measles and mumps, denies rheumatic fever, and notes sexually transmitted diseases. Musculoskeletal: The patient notes back pain/injury, notes back problems, notes sciatica, denies knee/foot trouble, notes arthritis, or denies gout. ? ? When was patient's last Mammogram screening? N/A ? Last Colonoscopy: 02/2016 ? Duyen Morrison RN I have confirmed and edited as necessary, the PFSH and ROS obtained by others. ? No exam performed as this was a telephone visit ? LABORATORY VALUES: As Noted ? RADIOLOGIC STUDIES: As Noted ? ? IMPRESSION: history of colon polyps, enunter for surveillance colonoscopy. Multiple medical comorbidities-plan for Monitored Anesthetic Care ? PLAN: I have reviewed my findings with the surgeon. Will plan for lower endoscopy. We discussed the risks and benefits of the planned endoscopy. I have informed the patient that complications can occur including failure to complete the endoscopy and perforation. The patient had the opportunity to ask questions concerning the planned endoscopy. My staff has also explained the procedure to the patient in understandable terms and has given the patient printed material concerning the procedure. The patient freely consents to surgery. ? I plan to use Golytely bowel preparation ? The patient has medical comorbidities for which we will plan for the procedure to be performed under Monitored Anesthetic Care. ? The patient was offered a surgery/procedure at a [facility] facility. I have counseled the patient regarding the risk of exposure to and/or potential harm posed by the COVID-19 virus with having a surgery/procedure at this time versus the risk of? delaying the surgery/procedure. It is not possible to know either the risk of delaying the surgery or procedure or chance of getting an infection with perfect accuracy, but a joint decision was made between the patient and myself?to proceed at this time with endoscopy. ? Diagnoses: (J42) Chronic bronchitis, unspecified chronic bronchitis type (HCC) (primary encounter diagnosis) (D12.6) Tubular adenoma of colon (Z99.81) On home oxygen therapy ? 12 minutes spent in visit ? Karine Solano PA-C PHYSICAL EXAMINATION: Vital signs in chart and noted by me General WD/WN M in no apparent distress, alert and oriented, not septic appearing HEENT Normocephalic. EOM intact with sclera clear and no icterus noted. Neck is supple with no jugular venous distention noted. Trachea is midline. No masses noted Lungs normal breath sounds. No rales/rhonchi/wheezing noted. No labored breathing noted, such as retractions. No cough heard. Heart normal heart sounds, regular. Abdomen soft and benign. Normal bowel sounds Extremities no pitting edema noted. Genitourinary/Rectal deferred Skin normal skin integrity. Neurological non focal. Psychological normal affect, patient is calm and appropriate Impression: surveillance colonoscopy for history of colon polyps Plan: as above.
[2020-06-08 12:15] VITALS: BP 142/88; PULSE 99; RESP 20; TEMP 36.6; O2SAT 100; BMI 35.5
[2020-06-08] MEDS: Lactated Ringers 1,000 ML 75 ML IV (12:32)
--- NOTE | 2020-06-08 12:45 | COLBX_PTH ---
PATIENT: MALISSA BAUTISTA LOC: EN U#:[id number] AGE/SX: 64/M ROOM: RE06/08/[address]: Dr. Aide Reyna MD : 1955 BED: DIS: 06/08/2020 SPEC #: [id number] RECD: 06/08/20 14:02 STATUS: ODALYS AYESHA #: [id number] STEPHAN: 06/08/20 12:[address]: Aide Reyna DEPT: SURGICAL PATHOLOGY RECD BY: Ace Clarke ENTERED: 06/09/20 10:27 SP TYPE: COLON BX JASON DR: Dr. Srinivasa Henao MD Tissues: A - COLON BIOPSY B - Sigmoid colon biopsy Procedures: Surgery Specimen Level IV HEADER OPERATION: Colonoscopy (MAC) PRE-OP DIAGNOSIS: History colon polyps TISSUE SUBMITTED: A - Left colon polyp, B - Sigmoid polyp MICROSCOPIC DIAGNOSIS A. Left colon polyp, biopsy: Fragments of serrated adenoma. B. Sigmoid colon polyp, biopsy: Fragments of tubular adenoma. AM:fanta 06/10/20 MICROSCOPIC DESCRIPTION Slides are reviewed. GROSS DESCRIPTION A - Received in fixative is one container labeled with the patient's name and designated left colon polyp. The specimen consists of one irregular fragment of light elias soft tissue that measures 1 x 0.5 x 0.3 cm. The specimen is bisected and totally submitted in one cassette. B - Received in fixative is one container labeled with the patient's name and designated sigmoid polyp. The specimen consists of two irregular fragments of light elias soft tissue that in aggregate measure 0.7 x 0.6 x 0.3 cm. The specimen is totally submitted in one cassette. / AM:fanta 06/09/20 TC:5 CPT: 06134 x2
[2020-06-08 13:49] VITALS: BP 110/58; BP 142/88; PULSE 105; RESP 20; TEMP 36.5; O2SAT 98
--- NOTE | 2020-06-08 13:49 | OP.CCLET_ITS ---
06/08/2020 Srinivasa Henao [address] [place] [address] Re : Colonoscopy procedure for Mao Purcell Dear Dr. Henao This procedure was performed on Monday, June 08, 2020. My impressions and recommendations are as follows: Impressions : - One 4 to 10 mm polyp in the descending colon, removed with a hot snare. Resected and retrieved. - One 5 to 10 mm polyp in the sigmoid colon, removed with a hot snare. Resected and retrieved. - Non-bleeding internal hemorrhoids. Recommendations : - Repeat colonoscopy date to be determined after pending pathology results are reviewed for surveillance based on pathology results. - Return to primary care physician PRN. - My office will telephone with pathology results in 1-2 weeks - Continue present medications. My findings are described in the full procedure note, which is enclosed. If I can be of further assistance, please feel free to contact me at Doctor phone number(s): , Work: . Sincerely, MD Aide Jauregui MD 06/08/2020 1:49:18 PM This report has been signed electronically.
--- NOTE | 2020-06-08 13:49 | OP.COLON_ITS ---
Patient Name: Mao Purcell Procedure Date: 06/08/2020 12:40 PM Date of : 1955 Age: 64 Procedure: Colonoscopy Indications: High risk colon cancer surveillance: Personal history of colonic polyps Providers: Aide Reyna MD Referring MD: Srinivasa Henao Medicines: See the Anesthesia note for documentation of the administered medications Patient Profile: Refer to note in patient chart for documentation of history and physical. Last Colonoscopy: 5 years ago. Complications: No immediate complications. Procedure: Pre-Anesthesia Assessment: - see anesthesia note After I obtained informed consent, the scope was passed under direct vision. Throughout the procedure, the patient's blood pressure, pulse, and oxygen saturations were monitored continuously. The colonoscope was introduced through the anus and advanced to the cecum, identified by the appendiceal orifice, ileocecal valve and palpation. The colonoscopy was performed without difficulty. The patient tolerated the procedure well. The quality of the bowel preparation was poor, there was still retained fecal material. Therefore lavage and aspiration was done to clear the fecal material. This took some time. The laughlin were cleared adequately. Scope In: 12:54:09 PM Scope Withdrawal Time 0 hours 31 minutes 0 seconds Scope Out: 1:41:31 PM Total Procedure Duration Time 0 hours 47 minutes 22 seconds Findings: The perianal and digital rectal examinations were normal. Pertinent negatives include normal sphincter tone. A 4 to 10 mm polyp was found in the descending colon. The polyp was sessile. The polyp was removed with a hot snare. Resection and retrieval were complete. Verification of patient identification for the specimen was done by the nurse. Estimated blood loss was minimal. A 5 to 10 mm polyp was found in the sigmoid colon. The polyp was sessile. The polyp was removed with a hot snare. Resection and retrieval were complete. Verification of patient identification for the specimen was done by the nurse. Estimated blood loss was minimal. Non-bleeding internal hemorrhoids were found. Multiple small and large-mouthed diverticula were found in the sigmoid colon. Impression: - One 4 to 10 mm polyp in the descending colon, removed with a hot snare. Resected and retrieved. - One 5 to 10 mm polyp in the sigmoid colon, removed with a hot snare. Resected and retrieved. - Non-bleeding internal hemorrhoids. Recommendation: - Repeat colonoscopy date to be determined after pending pathology results are reviewed for surveillance based on pathology results. - Return to primary care physician PRN. - My office will telephone with pathology results in 1-2 weeks - Continue present medications. Procedure Code(s): --- Professional --- 05170, Colonoscopy, flexible; with removal of tumor(s), polyp(s), or other lesion(s) by snare technique Diagnosis Code(s): --- Professional --- Z86.010, Personal history of colonic polyps D12.4, Benign neoplasm of descending colon D12.5, Benign neoplasm of sigmoid colon K64.8, Other hemorrhoids CPT copyright 2017 [employer]. All rights reserved. The codes documented in this report are preliminary and upon geochemist review may be revised to meet current compliance requirements. MD Aide Jauregui MD 06/08/2020 1:49:18 PM This report has been signed electronically. Number of Addenda: 0 Note Initiated On: 06/08/2020 12:40 PM
[2020-06-08 13:53] VITALS: BP 123/74; BP 142/88; PULSE 107; RESP 20; O2SAT 97
[2020-06-08 13:59] VITALS: BP 125/54; BP 142/88; PULSE 104; RESP 20; O2SAT 95
[2020-06-08 14:00] VITALS: BP 119/67; BP 142/88; PULSE 97; RESP 20; TEMP 36.6; O2SAT 94
[2020-06-08 14:23] VITALS: BP 142/88
== END 2020-06-08 14:31 | disposition home or self-care (01) ==
LOC: EN 11:46 → AC 11:47
PROVIDERS: Anesthesiology; PCP Internal Medicine; Referring Provider Internal Medicine; Visit Provider Surgery
PROC: 0DJD8ZZ Inspection of Lower Intestinal Tract, Via Natural or Artificial Opening Endoscopic (ICD-10-PCS; CPT 45378; principal; 2020-06-08 12:40)
DX: Z12.11 Encounter for screening for malignant neoplasm of colon (principal); Z86.010 Personal history of colon polyps; D12.4 Benign neoplasm of descending colon; D12.5 Benign neoplasm of sigmoid colon; Z11.59 Encounter for screening for other viral diseases; K64.8 Other hemorrhoids; J44.9 Chronic obstructive pulmonary disease, unspecified; Z99.81 Dependence on supplemental oxygen; F31.9 Bipolar disorder, unspecified; G47.33 Obstructive sleep apnea (adult) (pediatric); N13.8 Other obstructive and reflux uropathy; N40.1 Benign prostatic hyperplasia with lower urinary tract symptoms; K21.9 Gastro-esophageal reflux disease without esophagitis; Z87.891 Personal history of nicotine dependence; Z79.899 Other long term (current) drug therapy; Z79.82 Long term (current) use of aspirin
CPT/HCPCS: 45385; 87635; 88305; C9803; J7050; J7120; J2405; U0003

== ENCOUNTER 2020-11-11 13:14 | Outpatient (RCR) | payer MEDICARE, SELFPAY ==
[2020-09-30 13:39] VITALS: BMI 34.3
[2020-11-11] MEDS: COVID-19 VACC, MRNA(PFIZER)/PF 30 MCG/0.3 ML SYRINGE IM (11:27)
[2020-12-02] MEDS: COVID-19 VACC, MRNA(PFIZER)/PF 30 MCG/0.3 ML SYRINGE IM (11:16)
== END 2021-02-08 23:59 ==
LOC: IMMUN 13:14
PROVIDERS: PCP Internal Medicine; Visit Provider Family Medicine
DX: Z23 Encounter for immunization (principal)
CPT/HCPCS: 0001A; 0002A; 91300

== ENCOUNTER → 2020-12-30 13:05 | Outpatient (CLI) | payer MEDICARE, MEDICAID, SELFPAY ==
[2020-09-30 13:39] VITALS: BMI 34.3
--- NOTE | 2020-12-30 13:07 | CT_ITS ---
STUDY: CT CHEST WITHOUT CONTRAST REASON FOR EXAM: Male, 65 years old. Follow up lung nodule. RADIATION DOSAGE (If Supplied By Facility): CTDIvol = ( 15.45 ) mGy, DLP = ( 544.21 ) mGycm TECHNIQUE: Transaxial imaging was performed without the administration of intravenous contrast material. Multiplanar coronal and sagittal images were reformatted. Individualized dose optimization techniques were used for this CT. COMPARISON: Comparison is made with prior study dated 08/12/2019 and 03/28/2019. FINDINGS: There are emphysematous changes of the lungs with emphysematous blebs. This is worse in the upper lobes. The previously seen 6 mm nodule in the superior segment of the left lower lobe is not present at this time. There is no demonstrated pleural abnormality. There is moderate cardiac enlargement. There are calcifications of the coronary arteries. Mild pericardial thickening. Normal mediastinum. Normal hilar regions. Normal unenhanced pulmonary arteries. Normal aorta arch and descending thoracic aorta. Normal osseous structures. There is no demonstrated abnormality of the visualized upper abdomen. CT/Chest without Contrast IMPRESSION: Emphysematous changes. The previously seen 6 mm nodule in the superior segment of the left lower lobe is not seen at this time. Electronically Signed: True Miranda MD at 13:44 EDT , Service support ,
== END ==
PROVIDERS: PCP Internal Medicine; Referring Provider Internal Medicine Critical Care Medicine; Visit Provider Internal Medicine Critical Care Medicine
DX: R91.1 Solitary pulmonary nodule (principal)
CPT/HCPCS: 71250

== ENCOUNTER → 2022-05-02 | Outpatient (CLI) | payer MEDICARE, MEDICAID, SELFPAY ==
--- NOTE | 2022-05-02 08:45 | CT_ITS ---
STUDY: LOW DOSE CT LUNG CANCER SCREENING REASON FOR EXAM: Male, 66 years old. 30 + pk, actively smoking RADIATION DOSAGE (If Supplied By Facility): CTDIvol = ( 2.01 ) mGy, DLP = ( 74.24 ) mGycm TECHNIQUE: No contrast was administered. Low dose technique was utilized (average mAS-38 and kVp 120). 1.25 mm axial source images with a slice interval of 1.25-mm were reconstructed in lung windows. 2.5 mm axial source images with a slice interval of 2.5-mm were reconstructed in lung windows. 5.0 mm axial source images with a slice interval of 5.0-mm were reconstructed in soft tissue windows. COMPARISON: Comparison is made with prior study dated 12/30/2020. NODULES: No suspicious nodules are seen. Emphysema: Hyperinflation. Diffuse emphysematous changes worse in the upper lobes with the centrilobular emphysema. Endobronchial lesion: None Aorta: Atherosclerotic plaque formation of the aortic arch. CORONARY ARTERIES: Coronary artery calcification is seen. Heart: Unremarkable Pulmonary artery: Unremarkable Mediastinal nodes: Unremarkable Other chest and abdominal findings: CT/Low Dose CT Lung Screening IMPRESSION: Lung-RADS category 2 - Continue annual screening with LDCT in 12 months. IMPORTANT NOTES FOR USE: ACR Lung-RADS Version 1.1 Assessment Categories Release Date: 2018 Category: Coded 0-4 bases on nodule(s) with highest degree of suspicion. Negative screen is defined as categories 1 and 2; a positive screen is defined as categories 3 and 4. Category 3 and 4A nodules that are unchanged on interval CT should be coded as category 2, and individuals returned to screening in 12 months. Category 4X: Category 3 or 4 nodules with additional imaging findings that increase the suspicion of lung cancer, such as spiculation, GGN that doubles in size in 1 year, enlarged lymph notes, etc. Category Modifiers: S (significant finding unrelated to lung cancer) Electronically Signed: True Miranda MD at 12:31 EDT ,
--- NOTE | 2022-05-02 08:45 | ECHOD_ITS ---
Reason For Study: PHTN Procedure This was a 2D Doppler, Color Flow transthoracic echocardiogram. The study was technically difficult. Exam performed in department. Left Ventricle Normal LV size. Severe concentric left ventricular hypertrophy. Left ventricular systolic function is normal. The estimated ejection fraction is 55 %. There is evidence of diastolic dysfunction. No regional wall motion abnormalities noted. Right Ventricle Normal RV size. Normal systolic function. Atria The left atrium is mildly enlarged. The right atrium is moderately enlarged. No doppler evidence for ASD. Mitral Valve There is mild mitral annular calcification. Mild focal mitral valve calcification of the anterior leaflet. Mild-Moderate (1-2+) eccentric mitral valve insufficiency. Tricuspid Valve Normal tricuspid valve. Mild tricuspid valve insufficiency. Right ventricular systolic pressure estimated to be 49 mmHg. Aortic Valve Trisinus/trileaflet aortic valve. Mild focal aortic valve calcification. Pulmonic Valve The pulmonic valve is not well visualized. Great Vessels Borderline enlarged aortic root. Pericardium/Pleural Trivial pericardial effusion. There are no echocardiographic indications of cardiac tamponade. MMode/2D Measurements & Calculations LVIDd: 4.8 cm IVSd: 1.8 cm Ao root diam: 3.9 cm LVIDs: 3.1 cm LVPWd: 1.7 cm RVDd: 3.2 cm FS: 35.1 % LAV(MOD-bp): 104.0 ml LVAd ap4: 39.9 cm2 SV(MOD-sp4): 75.9 ml LAV(MOD-bp) Indexed: 59.8 ml/m2 LVLd ap4: 9.0 cm LAV(MOD-sp2): 116.4 ml EDV(MOD-sp4): 146.9 ml LAV(MOD-sp4): 85.7 ml EDV(sp4-el): 149.6 ml LVAs ap4: 25.2 cm2 LVLs ap4: 7.6 cm ESV(MOD-sp4): 70.9 ml ESV(sp4-el): 71.0 ml EF(MOD-sp4): 51.7 % EF(sp4-el): 52.6 % SV(sp4-el): 78.6 ml LA A4 area: 25.6 cm2 LA dimension(2D): 4.3 cm RA A4 area: 27.5 cm2 Time Measurements MV dec time: 0.17 sec Doppler Measurements & Calculations MV E max hilton: 91.4 cm/sec Lat Peak E' Hilton: 8.2 cm/sec MV V2 max: 102.1 cm/sec MV A max hilton: 115.5 cm/sec E/E' lat: 11.1 MV max P.2 mmHg MV E/A: 0.79 MV V2 mean: 72.1 cm/sec MV mean P.2 mmHg MV V2 VTI: 27.7 cm Ao V2 max: 162.4 cm/sec LV V1 max: 128.1 cm/sec MV dec slope: 550.9 cm/sec2 Ao max P.6 mmHg LV V1 max P.6 mmHg Ao V2 mean: 118.5 cm/sec LV V1 mean P.5 mmHg Ao mean P.3 mmHg LV V1 mean: 88.0 cm/sec Ao V2 VTI: 36.4 cm LV V1 VTI: 27.0 cm PA V2 max: 93.6 cm/sec TR max hilton: 290.3 cm/sec TR max P.7 mmHg ECHO/Echo Complete Interpretation Summary The study was technically difficult. Left ventricular systolic function is normal. The estimated ejection fraction is 55 %. Severe concentric left ventricular hypertrophy. The left atrium is mildly enlarged. The right atrium is moderately enlarged. There is mild mitral annular calcification. Mild focal mitral valve calcification of the anterior leaflet. Mild-Moderate (1-2+) eccentric mitral valve insufficiency. Mild tricuspid valve insufficiency. Mild focal aortic valve calcification. Borderline enlarged aortic root. Trivial pericardial effusion. There are no echocardiographic indications of cardiac tamponade. Right ventricular systolic pressure estimated to be 49 mmHg c/w pulmonary hyper tension. There is evidence of diastolic dysfunction. Ordering Physician: Kristian Hughes Referring Physician: Kristian Hughes Performed By: Bel Madrigal RCS
== END | disposition home or self-care (01) ==
LOC: CT 08:43
PROVIDERS: PCP Internal Medicine; Referring Provider Internal Medicine Critical Care Medicine; Visit Provider Internal Medicine Critical Care Medicine
DX: F17.210 Nicotine dependence, cigarettes, uncomplicated (principal); Z87.19 Personal history of other diseases of the digestive system; Z98.890 Other specified postprocedural states
CPT/HCPCS: 71271; 93306

== ENCOUNTER → 2022-05-30 | Outpatient (CLI) | payer MEDICARE, MEDICAID, SELFPAY ==
--- NOTE | 2022-05-30 16:10 | PFTCOMP ---
COMPLETE PULMONARY FUNCTION TEST INTERPRETATION Brief HPI: Patient is a 66-year-old male, currently under the care of myself, who presents to [facility] for complete pulmonary function tests secondary to diagnosis of chronic respiratory failure. Respiratory therapist reports good effort and reproducible results. Interpretation: Forced expiration spirometry shows a very severe large airways obstructive ventilatory defect with an FEV1 of 30% predicted. There is no significant bronchodilator response by strict ATS criteria. Spirograms are of good quality and plateau slowly, indicating slowly emptying areas of the lungs. The respiratory flow volume loop shows decreased expiratory flow rates at all lung volumes consistent with airway obstruction. Lung volumes by body plethysmography show an elevated total lung capacity at 10.33 L, 200% predicted. FRC and RV are elevated out of proportion. Lung volume measurements are consistent with hyperinflation and air-trapping. Diffusion capacity by carbon monoxide is severely reduced at 32% predicted. The airway resistance is elevated. Compared to previous pulmonary function tests from 07/22/2019, there is been significant worsening in all measured values. Impression: Irreversible very severe large airways obstructive ventilatory defect with a symmetric reduction diffusing capacity, resulting in air trapping with hyperinflation, and a significant worsening compared to 2019.
== END | disposition home or self-care (01) ==
LOC: PSN 08:26
PROVIDERS: PCP Internal Medicine; Referring Provider Internal Medicine Critical Care Medicine; Visit Provider Internal Medicine Critical Care Medicine
DX: J96.11 Chronic respiratory failure with hypoxia (principal)
CPT/HCPCS: 94060; 94726; 94729

== ENCOUNTER → 2022-06-01 | Outpatient (CLI) | payer MEDICARE, MEDICAID, SELFPAY ==
[2022-06-01 13:00] VITALS: PULSE 100; PULSE 101; PULSE 103; PULSE 104; PULSE 97; PULSE 98; O2SAT 86; O2SAT 90; O2SAT 91; O2SAT 92; O2SAT 93; O2SAT 94
--- NOTE | 2022-06-01 13:38 | CPS ---
pt arrived to testing on 6L home pulse dose. Placed him on room air for beginning of test. At 3 min I placed him on his home oxygen pulse dose 6L. Sats increased to 94% and stayed above 90% for remainder of testing.
--- NOTE | 2022-06-05 05:49 | PCM.PSN.6M ---
PSN 6 Minute Walk Test 6 Minute Walk Test 6 Minute Walk Test: 6 Minute Walk Test PSN:6-Minute Walk Test Start: 06/01/22 13:27 Freq: Status: Active Protocol: RESP.6MINW Document 06/01/22 13:00 EW (Rec: 06/01/22 13:40 EW [id number]) 6 Minute Walk Test Date Performed 06/01/22 Time Performed 13:00 Height 5 ft 4 in Weight: 72.575 kg Weight in Pounds 160.[address]: Kristian Hughes Assistive device used: Walker Pre-test Oxygen Delivery Method Room Air Pulse Ox (%) 92 Pulse Rate (60-100 beats/min) 98 Dyspnea David Scale (0-10) 3 Exertion David Scale (6-20) 12 1st minute Oxygen Delivery Method Room Air Pulse Ox (%) 90 Pulse Rate (60-100 beats/min) 103 H 2nd minute Oxygen Delivery Method Room Air Pulse Ox (%) 86 Pulse Rate (60-100 beats/min) 104 H 3rd minute Oxygen Flow Rate (L/min) (L/min) 6 Oxygen Delivery Method Nasal Cannula Pulse Ox (%) 91 Pulse Rate (60-100 beats/min) 97 4th minute Oxygen Flow Rate (L/min) (L/min) 6 Oxygen Delivery Method Nasal Cannula Pulse Ox (%) 93 Pulse Rate (60-100 beats/min) 101 H 5th minute Oxygen Flow Rate (L/min) (L/min) 6 Oxygen Delivery Method Nasal Cannula Pulse Ox (%) 94 Pulse Rate (60-100 beats/min) 100 6th minute Oxygen Flow Rate (L/min) (L/min) 6 Oxygen Delivery Method Nasal Cannula Pulse Ox (%) 93 Pulse Rate (60-100 beats/min) 103 H Post-test Oxygen Flow Rate (L/min) (L/min) 6 Oxygen Delivery Method Nasal Cannula Pulse Ox (%) 94 Pulse Rate (60-100 beats/min) 103 H Dyspnea David Scale (0-10) 3 Exertion David Scale (6-20) 12 Full Laps Walked 11 Partial Lap, Number of Tiles Walked 0 Total Distance Walked (ft) 649 06/01/22 13:38 Cardiopulmonary Services by Elva Wilson pt arrived to testing on 6L home pulse dose. Placed him on room air for beginning of test. At 3 min I placed him on his home oxygen pulse dose 6L. Sats increased to 94% and stayed above 90% for remainder of testing. Initialized on 06/01/22 13:38 - END OF NOTE Interpretation Interpretation: The patient was noted to be 92% on room air at rest, but desaturated to 86% in the second minute with ambulation. The patient was then placed on 6 L pulsed dose with home unit and was able to complete ambulation over the 6 minutes with no more significant desaturation. In total, the patient traveled 649 feet over the course of 6 minutes with the assistance of a walker and 1 break. These findings are consistent with a respiratory limitation exercise tolerance. Recommendations Recommendations: No supplemental oxygen is indicated at rest, but patient should be using 6 L pulsed dose with any exertion.
== END | disposition home or self-care (01) ==
LOC: PSN 12:45
PROVIDERS: PCP Internal Medicine; Referring Provider Internal Medicine Critical Care Medicine; Visit Provider Internal Medicine Critical Care Medicine
DX: J96.11 Chronic respiratory failure with hypoxia (principal)
CPT/HCPCS: 94618

== ENCOUNTER → 2022-07-11 | Outpatient (CLI) | payer MEDICARE, MEDICAID, SELFPAY ==
[2022-07-11 11:11] LABS: Anion Gap 2 (5-15); BUN 13 mg/dL (7-18); BUN/Creat Ratio 22.8 RATIO (10-20); Calcium,Total 8.9 mg/dL (8.5-10.1); Chloride 100 mmol/L (98-107); Creatinine, Serum 0.57 mg/dL (0.70-1.30); EST Glomerular Filtration Rate 152 mL/min (>60); Est Glom Filt Rate - Afr Amer 184 mL/min (>60); Glucose 101 mg/dL (74-106); Potassium 4.4 mmol/L (3.5-5.1); Sodium Level 138 mmol/L (136-145)
== END | disposition home or self-care (01) ==
LOC: LAB 09:36
PROVIDERS: PCP Internal Medicine; Referring Provider Internal Medicine Cardiovascular Disease; Visit Provider Internal Medicine Cardiovascular Disease
DX: I27.20 Pulmonary hypertension, unspecified (principal)
CPT/HCPCS: 36415; 80048

== ENCOUNTER 2022-07-23 19:16 | Emergency (ER) | payer MEDICARE, MEDICAID, SELFPAY ==
[2022-07-23 19:18] VITALS: BP 131/92; PULSE 104; RESP 24; TEMP 37.2; O2SAT 92; BMI 29.5
[2022-07-23 19:21] VITALS: BP 131/92; PULSE 104; RESP 24; TEMP 37.2; O2SAT 94
--- NOTE | 2022-07-23 19:31 | EKG12_ITS ---
Test Reason : ABD PAIN Blood Pressure : / mmHG Vent. Rate : 091 BPM Atrial Rate : 091 BPM P-R Int : 154 ms QRS Dur : 112 ms QT Int : 364 ms P-R-T Axes : 029 -61 039 degrees QTc Int : 447 ms Normal sinus rhythm Left axis deviation Incomplete right bundle branch block Inferior infarct , age undetermined Anterior infarct , age undetermined Abnormal ECG Confirmed by RANDY VAZQUEZ, DALIA ([id number]), online editor NATALY FULLER ([id number]) on 07/25/2022 8:17:04 AM Referred By: Confirmed By:DALIA PADILLA MD
--- NOTE | 2022-07-23 19:31 | CT_ITS ---
INDICATION: Left-sided abdominal pain shortness of breath. EXAMINATION: CT ABDOMEN AND PELVIS WITH CONTRAST - CT Abdomen And Pelvis W/ Contrast Injection TECHNIQUE: Helically acquired images were obtained of the abdomen and pelvis following IV contrast. A radiation dose optimization technique was used for this scan. IV Contrast dosage and agent: 100 mL of Isovue 370 Oral contrast: None. COMPARISON: CT of the chest, December 31, 2011 and May 02, 2022 FINDINGS: LOWER CHEST: Increased AP diameter of the chest. There is diffuse emphysematous changes without infiltrate or mass. No cardiomegaly or pericardial effusion. Coronary artery calcifications are noted. LIVER: There is a tiny cyst in segment 4A of an otherwise normal-appearing liver. No focal solid mass. GALLBLADDER AND BILIARY TREE: There is a large gallstone within the gallbladder fundus. No wall edema or distention. No intra- or extrahepatic biliary ductal dilation. PANCREAS: No focal cystic or solid mass. SPLEEN: Normal size without focal cystic or solid mass. ADRENAL GLANDS: No nodules. KIDNEYS AND URETERS: Normal right kidney. There is a small cyst in the upper pole of an otherwise normal left kidney. No renal calculi or hydronephrosis. PERITONEUM: No ascites or free air. No other fluid collection. BOWEL: Nondistended stomach. Grossly normal small bowel without mass or obstruction. Air and feces is seen throughout the colon without mass or obstruction. Sigmoid diverticulosis without inflammatory change. The appendix is not visualized. LYMPH NODES: No enlarged mesenteric or retroperitoneal lymph nodes. VESSELS: Atherosclerotic tortuosity of the thoracic aorta iliac arteries without aneurysm or dissection. Normal IVC. URINARY BLADDER: Thick walled poorly distended urinary bladder. The REPRODUCTIVE ORGANS: Enlarged prostate. ABDOMINAL WALL: There is marked subcutaneous varices in the abdominal wall. Small umbilical hernia of omental fat. There is a large left inguinal hernia containing fluid and colon. BONES: Degenerative changes of the lumbar spine with exaggerated lordosis. There is slight retrolisthesis of L1 on L2 with bulging annulus. CT/Abdomen/Pelvis W IV Cont ONLY IMPRESSION: 1. Emphysematous changes of the lungs. 2. Gallstone without acute cholecystitis. 3. Nonspecific bowel gas pattern without evidence of obstruction. 4. Enlarged prostate with bladder wall thickening. Question outlet obstruction. 5. Left inguinal hernia containing nonobstructed colon. 6. Multiple varices in the abdominal wall with small umbilical hernia. Electronically Signed: Gerson French DO at 20:21 EST ,
--- NOTE | 2022-07-23 19:33 | EDS_ITS ---
HPI HPI - GI History of Present Illness Chief Complaint: Abd Pain Narrative Narrative: 66-year-old male past medical history of COPD, has a known left inguinal hernia that he states needs repaired presents with multiple somatic complaints but mainly pain and burning with his left hernia, along with shortness of breath. He states that his hernia is reducible but it pops back in and out all the time. It was last in this morning, and yesterday evening he began having pain in his left lower quadrant in the area of his hernia. Is described more as a burning sensation. Additionally, he states he is more short of breath than usual. He usually wears 4 to 5 L of oxygen but usually puts the nasal cannulas in his mouth because his sinuses are congested. He denies any fevers or chills. No nausea or vomiting. States his last bowel movement was yesterday. He tried to have a bowel movement today but was unable to do so. [facility] Medical History Abnormal EKG Acute and chronic respiratory failure with hypoxia Allergic rhinitis Anxiety and depression Bipolar disorder BPH (benign prostatic hyperplasia) Chest pain Chronic back pain COPD exacerbation Edema Esophageal reflux Incomplete right bundle branch block Left ventricular hypertrophy Morbid obesity due to excess calories KARIN (obstructive sleep apnea) Pneumonia PSA elevation Sepsis Sepsis Stage 3 severe COPD by GOLD classification Ventral hernia Home Medications oxycodone-acetaminophen 5 mg-325 mg tablet 1 tab PO 4X/DAY PRN Pain 01/30/14 [History Last Taken 06/08/20] tamsulosin 0.4 mg capsule 0.4 mg PO BID 10/24/17 [History Last Taken 06/12/18] ropinirole 0.5 mg tablet 0.5 mg PO QHS Restless leg syndrom 05/05/18 [History Last Taken 05/03/18] baclofen 10 mg tablet 10 mg PO BID 06/03/18 [History Last Taken Unknown] ciclopirox 0.77 % topical cream (Loprox (as olamine)) 1 applic topical BID PRN atheletes foot 06/03/18 [History Last Taken Unknown] ibuprofen 200 mg tablet 600 mg PO HS PRN Pain 06/03/18 [History Last Taken 06/12/18] lorazepam 0.5 mg tablet 0.5 mg PO BID Anxiety 06/03/18 [History Last Taken 06/08] trazodone 50 mg tablet 50 mg PO QHS 06/03/18 [History Last Taken Unknown] albuterol sulfate 90 mcg/actuation aerosol inhaler (ProAir HFA) 2 puff inhalation Q4H PRN Sob &/Or Wheezing #8.5 grams 08/16/21 [Rx Last Taken Unknown] ipratropium 0.5 mg-albuterol 3 mg (2.5 mg base)/3 mL nebulization soln 3 ml inhalation .QID #180 mL 08/16/21 [Rx Last Taken Unknown] ipratropium 20 mcg-albuterol 100 mcg/actuation mist for inhalation (Combivent Respimat) 1 puff inhalation Q6H #3 device 08/16/21 [Rx Last Taken Unknown] mometasone 50 mcg/actuation nasal spray 2 spray intranasal DAILY #17 grams 01/02/22 [Rx Last Taken Unknown] budesonide-formoterol HFA 160 mcg-4.5 mcg/actuation aerosol inhaler 2 puff inhalation BID #10.2 grams 03/13/22 [Rx Last Taken Unknown] roflumilast 500 mcg tablet (Daliresp) 500 mcg PO DAILY #30 tabs 03/13/22 [Rx Last Taken Unknown] nicotine 14 mg/24 hr daily transdermal patch 1 patch transdermal Q24H #28 ea 04/18/22 [Rx Last Taken Unknown] guaifenesin 1,200 mg tablet, extended release 12 hr 1,200 mg PO Q12H #60 tabs 04/19/22 [Rx Last Taken Unknown] montelukast 10 mg tablet 10 mg PO DAILY #30 tabs 04/19/22 [Rx Last Taken Unknown] aspirin 81 mg chewable tablet 81 mg PO .QOD 06/29/22 [History Last Taken Unknown] furosemide 20 mg tablet (Lasix) 20 mg PO DAILY #30 tabs 06/29/22 [Rx Last Taken Unknown] melatonin 10 mg tablet 10 mg PO HS PRN Sleep 06/29/22 [History Last Taken Unknown] potassium chloride 10 mEq tablet,extended release 10 meq PO DAILY #30 tabs 06/29/22 [Rx Last Taken Unknown] benzonatate 200 mg capsule 200 mg PO TID PRN Cough #90 caps 07/17/22 [Rx Last Taken Unknown] prednisone 20 mg tablet 40 mg PO DAILY #14 tabs 07/23/22 [Rx Last Taken Unknown] Allergy/AdvReac Type Severity Reaction Status Date / Time No Known Allergies Allergy Verified 06/29/22 11:04 Family History Mother Cancer Cervical Father Cancer Brain with metastasis Sister Bipolar disorder Daughter Bipolar disorder Brother Cancer Brain Surgical History History of carpal tunnel surgery of right wrist History of colonoscopy History of left heart catheterization (06/12/18) History of umbilical hernia repair History of vasectomy Social History Smoking Status: Former smoker Tobacco: How many years used: 30 second hand exposure: Yes alcohol intake: former substance use type: former substance user 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 HEENT: No sore throat. No neck pain. No loss of vision. No rhinorrhea. Cardiovascular: No chest pain. No palpitations. No pedal edema. Respiratory: Occasional cough, positive shortness of breath. Abdominal: Left lower quadrant inguinal hernia abdominal pain. No nausea. No vomiting. Last bowel movement yesterday, constipated today. Genitourinary: No dysuria. No hematuria. Musculoskeletal: No myalgias. No arthralgias. Neurologic: No headaches. No dizziness. No lightheadedness. Skin: No rash. No change in color. Psychiatric: No depression. No anxiety. EXAM Physical Exam Narrative Exam Narrative: Afebrile. Vital signs noted. HEENT: Normocephalic. Atraumatic. PERRL, EOMI. Neck soft and supple. No point tenderness or step off. Dry mucous membranes. Cardiovascular: Mild tachycardia at 104. No murmurs, rubs, or gallops appreci ated. Respiratory: No tachypnea. Decreased breath sounds bilaterally. Gastrointestinal: Abdomen soft, nontender, with normoactive bowel sounds. No rebound or guarding. There is a reducible left inguinal hernia without erythema or induration. Neurological: Awake. Alert. Nonfocal, nonlateralizing. Skin: No rash. Normal color. No pallor. Musculoskeletal: No pedal edema. Full range of motion extremities. Const Vital Signs: 07/23/22 19:18 07/23/22 19:21 07/23/22 19:25 Temperature 98.9 F 98.9 F Temperature Source Temporal Temporal Pulse Rate 104 H 104 H Respiratory Rate 24 H 24 H Respiratory Effort Short of Breath Respiratory Depth Normal Respiratory Pattern Tachypnea Blood Pressure 131/92 H 131/92 H Blood Pressure Mean 105 105 Pulse Ox 92 94 Oxygen Delivery Method Nasal Cannula Nasal Cannula Nasal Cannula Oxygen Flow Rate (L/min) 8 8 7 07/23/22 21:34 07/23/22 21:37 Temperature Temperature Source Pulse Rate 86 86 Respiratory Rate 16 19 H Respiratory Effort Respiratory Depth Respiratory Pattern Blood Pressure 146/99 H Blood Pressure Mean 114 Pulse Ox 96 Oxygen Delivery Method Nasal Cannula Oxygen Flow Rate (L/min) 5 MDM MDM MDM Narrative Medical decision making narrative: His hernia is reducible. It is not incarcerated. But given his left lower quadrant abdominal pain and burning, I will obtain a CT of the abdomen pelvis with IV contrast. I will also obtain a chest x-ray given his shortness of breath. Basic laboratory work was also obtained. CBC is grossly normal with a normal white count of 9.7, hemoglobin 14.4 normal, platelet count normal at 216. Electrolyte panel shows CO2 slightly elevated at 37 which I think is nonspecific, glucose appropriately elevated at 117 with a normal/low anion gap of 1. LFTs are grossly unremarkable. Urinalysis is negative for infection. Chest x-ray interpreted by myself shows no evidence of pneumonia or pneumothor ax. CT of the abdomen and pelvis with IV contrast does show the left inguinal hernia containing bowel but no obstruction. He was administered Solu-Medrol because he states he had chest tightness along with a DuoNeb aerosolized treatment. In review of his chart, it does look like he saw Dr. Sorto who is waiting for pulmonology and anesthesiology to clear him to take care of his left inguina l hernia. As it remains reducible, I feel he can be discharged safely home to follow-up. He will continue his Symbicort and his albuterol. I did review his chart from his pulmonary medicine visitation, and this was back in June. He had not had steroids recently but he did not comply with his noninvasive ventilator. He had not received steroids recently from then, so he was written a prescription for steroid burst for 7 days. He states that he is generally weak, but I am unsure as to the cause of his weakness. He has advanced COPD and states that he transiently might drop his pulse ox, but there has been no evidence of that here. I did offer him observation versus admission for placement in a detention as he feels generally weak, but he declined. 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 Return instructions were reviewed. Disposition is discharged home in stable condition. Lab Data Attestation: I reviewed the patient's lab results. Labs: Laboratory Results - last 24 hr 07/23/22 07/23/22 07/23/22 19:22 19:22 20:15 WBC 9.7 RBC 4.44 L Hgb 14.4 Hct 43.5 MCV 98.0 H MCH 32.4 H MCHC 33.1 RDW Std Deviation 46.6 H RDW Coeff of Alon 13.0 Plt Count 216 MPV 9.9 Immature Gran % (Auto) 0.300 Neut % (Auto) 68.8 Lymph % (Auto) 21.2 [place] % (Auto) 9.0 Eos % (Auto) 0.2 Baso % (Auto) 0.5 Absolute Neuts (auto) 6.7 Absolute Lymphs (auto) 2.06 Nucleated RBC % 0 Sodium 139 Potassium 4.0 Chloride 101 Carbon Dioxide 37.0 H Anion Gap 1 L BUN 15 Creatinine 0.78 Estim Creat Clear Calc 72.92 Est GFR (MDRD) Af Amer 128 Est GFR (MDRD) Non-Af 106 BUN/Creatinine Ratio 19.3 Glucose 117 H Calcium 9.0 Total Bilirubin 0.50 AST 16 ALT 23 Alkaline Phosphatase 78 Total Protein 7.3 Albumin 3.6 Globulin 3.7 Albumin/Globulin Ratio 1.0 Urine Color Yellow Urine Clarity Clear Urine pH 8.0 Ur Specific [place] 1.010 Urine Protein Negative Urine Glucose (UA) Normal Urine Ketones Negative Urine Occult Blood Negative Urine Nitrite Negative Urine Bilirubin Negative Urine Urobilinogen Normal Ur Leukocyte Esterase Negative Urine RBC 0 SEEN Urine WBC 0 SEEN Ur Squamous Epith Cells 0-5 SEEN Amorphous Sediment 2+ Urine Bacteria 0 SEEN Urine Mucus 0 SEEN Radiography Diagnostic Testing: Clinical Impression(s) from Imaging Studies Abdomen/Pelvis CT 07/23/22 19:31 IMPRESSION: 1. Emphysematous changes of the lungs. 2. Gallstone without acute cholecystitis. 3. Nonspecific bowel gas pattern without evidence of obstruction. 4. Enlarged prostate with bladder wall thickening. Question outlet obstruction. 5. Left inguinal hernia containing nonobstructed colon. 6. Multiple varices in the abdominal wall with small umbilical hernia. Electronically Signed: Gerson BurlingtonDO manpreet at 20:21 EST Reading Location ID and State: [address] [place] [address] Tel [phone], Service support , Chest X-Ray 07/23/22 19:56 IMPRESSION: Question COPD without acute cardiopulmonary disease. Electronically Signed: Gerson French DO at 20:14 EST Reading Location ID and State: [address] [place] [address] Tel [phone], Service support , Discharge Plan Triage Chief Complaint: Abd Pain ED Provider: Bertram Perez Dx/Rx/DC Orders Clinical Impression: Weakness, COPD (chronic obstructive pulmonary disease), Reducible left inguinal hernia Instructions: ED COPD Flare, ED Hernia (Adult), ED Weakness (Uncertain Cause) Prescriptions: New prednisone 20 mg tablet 40 mg PO DAILY Qty: 14 0RF No Action ciclopirox [Loprox (as olamine)] 0.77 % cream 1 applic TOPICAL BID PRN (Reason: atheletes foot) trazodone 50 mg tablet 50 mg PO QHS baclofen 10 mg tablet 10 mg PO BID ibuprofen 200 mg tablet 600 mg PO HS PRN (Reason: Pain) nicotine 14 mg/24 hr patch 24 hour 1 patch transdermal Q24H Qty: 28 3RF melatonin 10 mg tablet 10 mg PO HS PRN (Reason: Sleep) potassium chloride 10 mEq tablet extended release 10 meq PO DAILY Qty: 30 6RF furosemide [Lasix] 20 mg tablet 20 mg PO DAILY Qty: 30 6RF oxycodone-acetaminophen 1 TABLET tablet 1 tab PO 4X/DAY PRN (Reason: Pain) lorazepam 0.5 mg tablet 0.5 mg PO BID tamsulosin 0.4 MG capsule 0.4 mg PO BID aspirin 81 mg tablet,chewable 81 mg PO .QOD ropinirole 0.5 MG tablet 0.5 mg PO QHS ipratropium-albuterol 0.5 mg-3 mg(2.5 mg base)/3 mL solution for nebulization 3 ml INHALATION .QID Qty: 180 5RF ProAir HFA 90 mcg/actuation HFA aerosol inhaler 2 puff INHALATION Q4H PRN (Reason: Sob &/Or Wheezing) Qty: 8.5 5RF Combivent Respimat 20-100 mcg/actuation mist 1 puff INHALATION Q6H Qty: 3 3RF mometasone 50 mcg/actuation spray,non-aerosol 2 spray INTRANASAL DAILY Qty: 17 6RF budesonide-formoterol 160-4.5 mcg/actuation HFA aerosol inhaler 2 puff INHALATION BID Qty: 10.2 6RF Daliresp 500 mcg tablet 500 mcg PO DAILY Qty: 30 11RF guaifenesin 1,200 mg tablet extended release 12hr 1,200 mg PO Q12H Qty: 60 6RF montelukast 10 mg tablet 10 mg PO DAILY Qty: 30 5RF benzonatate 200 mg capsule 200 mg PO TID PRN (Reason: Cough) Qty: 90 5RF Primary Care Provider: Srinivasa Henao Referrals: Horace Sorto MD [Med Staff - Active Staff] - As soon as possible Kristian Hughes MD [Med Staff - Active Staff] - 1-2 Days if not improving Srinivasa Henao MD [Primary Care Provider] - Disposition Disposition: Home, Self Care
--- NOTE | 2022-07-23 19:56 | RAD_ITS ---
STUDY: X-RAY CHEST REASON FOR EXAM: Male, 66 years old. Shortness of breath. TECHNIQUE: Single AP portable view of the chest. COMPARISON: May 07, 2018. FINDINGS: The lungs are hyperexpanded. There is chronic interstitial coarsening without focal mass or infiltrate. There is no demonstrated pleural abnormality. Normal size heart. Normal mediastinum and emmanuel. Normal visualized pulmonary arteries. X-ray The thoracic spine is obscured by the mediastinum. Normal visualized ribs, clavicles, and shoulders. There is no demonstrated abnormality of the visualized soft tissue structures of the upper abdomen. RAD/Chest 1 View (Portable) IMPRESSION: Question COPD without acute cardiopulmonary disease. Electronically Signed: Gerson French DO at 20:14 EST ,
[2022-07-23 20:11] LABS: Absolute Lymphocyte Count 2.06 X10^3/uL (0.83-4.51); Absolute Neutrophil Count 6.7 X10^3/uL (2.0-7.7); Basophil# 0.05 X10^3/uL; Basophil% 0.5 % (0-1); Eosinophil# 0.02 X10^3/uL; Eosinophils% 0.2 % (0-5); Hematocrit 43.5 % (40-54); Hemoglobin 14.4 g/dL (13.0-16.5); Lymphocyte # 2.06 X10^3/ul (0.83-4.51); Lymphocyte % 21.2 % (19-41); Mean Corp Hgb Conc 33.1 g/dL (32-36); Mean Corpuscular Hgb 32.4 pg (27.0-32.0); Mean Platelet Vol. 9.9 fl (6.2-12.0); Monocyte# 0.87 X10^3/uL; NRBC Flagged by Analyzer 0 % (0-5); Neutrophil # 6.69 X10^3/uL (2.7-7.7); Neutrophil % 68.8 % (47-70); Platelet Count 216 K/mm3 (150-450); RBC Distribution Width SD 46.6 fl (35.1-43.9); Red Blood Count 4.44 M/mm3 (4.6-6.2); White Blood Count 9.7 K/mm3 (4.4-11.0)
[2022-07-23 20:16] LABS: Bacteria 0 SEEN /hpf (None Seen); Mucous, Urine 0 SEEN /hpf (<or=2+); Red Blood Cells-Urine 0 SEEN /hpf (0-5); White Blood Cells 0 SEEN /hpf (0-5)
[2022-07-23 20:20] LABS: AST(SGOT) 16 U/L (15-37); Alanine Aminotransfer ALT/SGPT 23 U/L (16-61); Albumin, Serum 3.6 g/dL (3.2-5.0); Alkaline Phosphatase 78 U/L (45-117); Anion Gap 1 (5-15); BUN 15 mg/dL (7-18); BUN/Creat Ratio 19.3 RATIO (10-20); Chloride 101 mmol/L (98-107); Creatinine, Serum 0.78 mg/dL (0.70-1.30); EST Glomerular Filtration Rate 106 mL/min (>60); Est Glom Filt Rate - Afr Amer 128 mL/min (>60); Estimated Creatinine Clearance 72.92 ml/min; Globulin 3.7 g/dL (2.2-4.2); Glucose 117 mg/dL (74-106); Protein, Total 7.3 g/dL (6.4-8.2); Sodium Level 139 mmol/L (136-145)
[2022-07-23 20:23] LABS: Color, Urine Yellow (Yellow); Glucose, Dipstick Normal (Normal); Leukocyte Esterase-Dipstick Negative /ul (Negative); Nitrite-Dipstick Negative (Negative); Occult Blood-Urine Negative /ul (Negative); Protein-Dipstick Negative (Negative); Urine Bilirubin Dipstick Negative (Negative); Urine Clarity Clear (Clear); Urine Urobilinogen Normal (Normal)
[2022-07-23 20:43] LABS: Ketone-Dipstick Negative (Negative)
[2022-07-23 21:08] LABS: Amorphous Sediment 2+; Squamous Epithelial Cells - UA 0-5 SEEN /hpf (0-5)
[2022-07-23 21:34] VITALS: PULSE 86; RESP 16
[2022-07-23] MEDS: Ipratropium/Albuterol Sulfate 3 ML AMPUL.NEB INHALATION (21:34)
[2022-07-23] MEDS: MethylPREDNISolone 125 MG/2 ML Vial IV (21:36)
[2022-07-23 21:37] VITALS: BP 146/99; PULSE 86; RESP 19; O2SAT 96
[2022-07-23 23:17] VITALS: BP 148/98; PULSE 87; RESP 24; O2SAT 92
[2022-07-23] MEDS: Morphine 4 MG/ML Syringe IM (23:32)
== END 2022-07-23 23:53 | disposition home or self-care (01) ==
PROVIDERS: Emergency Provider Emergency Medicine; PCP Internal Medicine; Visit Provider Emergency Medicine
DX: R53.1 Weakness (principal); J44.9 Chronic obstructive pulmonary disease, unspecified; K40.90 Unilateral inguinal hernia, without obstruction or gangrene, not specified as recurrent; G47.33 Obstructive sleep apnea (adult) (pediatric); Z87.891 Personal history of nicotine dependence; Z79.82 Long term (current) use of aspirin; Z79.899 Other long term (current) drug therapy; Z99.81 Dependence on supplemental oxygen
CPT/HCPCS: 71045; 74177; 80053; 81001; 85025; 93005; 94640; 96372; 96374; 99285; Q9967

== ENCOUNTER → 2023-01-18 | Outpatient (CLI) | payer MEDICARE, MEDICAID, SELFPAY ==
[2023-01-18 13:47] LABS: Anion Gap 2 (5-15); BUN 18 mg/dL (7-18); BUN/Creat Ratio 29.2 RATIO (10-20); Calcium,Total 8.9 mg/dL (8.5-10.1); Chloride 102 mmol/L (98-107); Creatinine, Serum 0.62 mg/dL (0.70-1.30); EST Glomerular Filtration Rate 139 mL/min (>60); Est Glom Filt Rate - Afr Amer 168 mL/min (>60); Glucose 85 mg/dL (74-106); Potassium 4.4 mmol/L (3.5-5.1); Sodium Level 139 mmol/L (136-145)
== END | disposition home or self-care (01) ==
LOC: LAB 13:13
PROVIDERS: PCP Internal Medicine; Referring Provider Internal Medicine Cardiovascular Disease; Visit Provider Internal Medicine Cardiovascular Disease
DX: R60.9 Edema, unspecified (principal); J44.1 Chronic obstructive pulmonary disease with (acute) exacerbation; T50.2X5A Adverse effect of carbonic-anhydrase inhibitors, benzothiadiazides and other diuretics, initial encounter
CPT/HCPCS: 36415; 80048

== ENCOUNTER 2023-03-04 22:40 | Inpatient (IN) | payer MEDICARE, MEDICAID, SELFPAY ==
[2023-03-04 22:41] VITALS: BP 144/94; PULSE 88; RESP 23; TEMP 36.8; O2SAT 100; BMI 27.1
[2023-03-04 22:45] VITALS: PULSE 91; RESP 12; RESP 35; O2SAT 99
--- NOTE | 2023-03-04 22:57 | EDS_ITS ---
HPI History of Present Illness Chief Complaint: Shortness of Breath Informant: patient Onset/Context/Timing Onset: Yesterday Context: gradual Timing: Continuous Quality: Positive for Dyspnea on exertion Worsened by: Exertion Relieved by: Nothing Associated Symptoms rhinorrhea and chills; Negative for cough, post nasal drip, ear pain, fever, sore throat, sweats, clear sputum, white sputum, yellow sputum or green sputum Chest Pain: Positive for Continuous, Aching and Pressure Narrative Narrative: Patient presents with shortness of breath that has been getting worse since yesterday. Patient states it is gradually getting worse. Patient states his breathing is worse with any exertion. Patient states nothing seems to help with it. Patient admits to some rhinorrhea. Patient denies any cough. Patient admits to some subjective chills but denies any fevers. Patient admits to some pain in his substernal area and left upper chest. Patient describes it as aching and pressure. EMS administered with DuoNeb aerosol and 125 mg of Solu-Me drol. Patient states he is starting to feel better. PE Risk Factors: Negative for Cancer, OCP + Smoking + > 35, Prior DVT or PE, Recent immobilization, Recent surgery or Recent travel [facility] Medical History Abnormal EKG Acute and chronic respiratory failure with hypoxia Allergic rhinitis Anxiety and depression Bipolar disorder BPH (benign prostatic hyperplasia) Chest pain Chronic back pain COPD exacerbation Edema Esophageal reflux Incomplete right bundle branch block Left ventricular hypertrophy Morbid obesity due to excess calories KARIN (obstructive sleep apnea) Pneumonia PSA elevation Sepsis Sepsis Stage 3 severe COPD by GOLD classification Ventral hernia Home Medications oxycodone-acetaminophen 5 mg-325 mg tablet 1 tab PO 4X/DAY PRN Pain 01/30/14 [History Last Taken 06/08/20] tamsulosin 0.4 mg capsule 0.4 mg PO BID 10/24/17 [History Last Taken 06/12/18] ropinirole 0.5 mg tablet 0.5 mg PO QHS Restless leg syndrom 05/05/18 [History Last Taken 05/03/18] baclofen 10 mg tablet 10 mg PO BID 06/03/18 [History Last Taken Unknown] ciclopirox 0.77 % topical cream (Loprox (as olamine)) 1 applic topical BID PRN atheletes foot 06/03/18 [History Last Taken Unknown] ibuprofen 200 mg tablet 800 mg PO HS PRN Pain 06/03/18 [History Last Taken 06/12/18] lorazepam 0.5 mg tablet 0.5 mg PO BID Anxiety 06/03/18 [History Last Taken 06/08/20] trazodone 50 mg tablet 50 mg PO QHS 06/03/18 [History Last Taken Unknown] ipratropium 20 mcg-albuterol 100 mcg/actuation mist for inhalation (Combivent Respimat) 1 puff inhalation Q6H #3 device 08/16/21 [Rx Last Taken Unknown] mometasone 50 mcg/actuation nasal spray 2 spray intranasal DAILY #17 grams 01/02/22 [Rx Last Taken Unknown] roflumilast 500 mcg tablet (Daliresp) 500 mcg PO DAILY #30 tabs 03/13/22 [Rx Last Taken Unknown] nicotine 14 mg/24 hr daily transdermal patch 1 patch transdermal Q24H #28 ea 04/18/22 [Rx Last Taken Unknown] aspirin 81 mg chewable tablet 81 mg PO .QOD 06/29/22 [History Last Taken Unknown] melatonin 10 mg tablet 10 mg PO HS PRN Sleep 06/29/22 [History Last Taken Unknown] potassium chloride 10 mEq tablet,extended release 10 meq PO DAILY #30 tabs 07/25/22 [Rx Last Taken Unknown] ipratropium 0.5 mg-albuterol 3 mg (2.5 mg base)/3 mL nebulization soln 3 ml inhalation .QID #180 mL 07/28/22 [Rx Last Taken Unknown] albuterol sulfate 90 mcg/actuation aerosol inhaler (ProAir HFA) 2 puff inhalation Q4H PRN Sob &/Or Wheezing #8.5 grams 08/17/22 [Rx Last Taken Unknown] mometasone-formoterol HFA 100 mcg-5 mcg/actuation aerosol inhaler (Dulera) 2 puff inhalation Q12H #13 grams 09/26/22 [Rx Last Taken Unknown] montelukast 10 mg tablet 10 mg PO DAILY #90 tabs 11/07/22 [Rx Last Taken Unknown] furosemide 20 mg tablet See Rx Instructions .Route .COMPLEX #90 tabs 12/25/22 [Rx Last Taken Unknown] guaifenesin 1,200 mg tablet, extended release 12 hr 1,200 mg PO Q12H #60 tabs 01/19/23 [Rx Last Taken Unknown] benzonatate 200 mg capsule 200 mg PO TID PRN Cough #90 caps 01/25/23 [Rx Last Taken Unknown] docusate sodium 100 mg capsule 100 mg PO BID 03/05/23 [History Last Taken Unknown] Allergy/AdvReac Type Severity Reaction Status Date / Time No Known Allergies Allergy Verified 03/04/23 22:49 Family History Mother Cancer Cervical Father Cancer Brain with metastasis Sister Bipolar disorder Daughter Bipolar disorder Brother Cancer Brain Surgical History History of carpal tunnel surgery of right wrist History of colonoscopy History of left heart catheterization (06/12/18) History of umbilical hernia repair History of vasectomy Hx of inguinal hernia repair (~10/2022) Social History Smoking Status: Former smoker Tobacco: How many years used: 30 second hand exposure: Yes alcohol intake: former substance use type: former substance user 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, 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 caffeine: Yes Type: coffee Number of servings: 8 ROS ROS ED Constitutional Constitutional ED: Reports chills; Denies fever(s) Eyes Eyes: Reports blurry vision; Denies change in vision ENT ENT ED: Reports rhinorrhea; Denies sore throat Cardiovascular Cardiovascular: Reports chest pain; Denies palpitations Respiratory/Chest Respiratory/Chest: Reports dyspnea; Denies cough Gastrointestinal Gastrointestinal: Denies nausea or vomiting Genitourinary Genitourinary ED: Denies dysuria or hematuria Musculoskeletal Musculoskeletal: Reports back pain; Denies neck pain Integumentary Denies abscess or rash Neurologic Neurologic: Denies headache(s) or weakness Allergic/Immunologic Allergic/Immunologic ED: Denies mouth swelling or urticaria EXAM Physical Exam Const Vital Signs: 03/04/23 22:41 03/04/23 22:47 03/04/23 23:42 Temperature 98.2 F Temperature Source Temporal Pulse Rate 88 85 Respiratory Rate 23 H 28 H Respiratory Effort Short of Breath Accessory Muscle Use Nasal Flaring Respiratory Depth Deep Respiratory Pattern Tachypnea Tachypnea Blood Pressure 144/94 H Blood Pressure Mean 110 Pulse Ox 100 Oxygen Delivery Method Bi-pap Oxygen Flow Rate (L/min) Fraction of Inspired Oxygen (FIO2) 35 03/05/23 00:01 03/05/23 00:02 03/04/23 22:45 Temperature 98.6 F Temperature Source Temporal Pulse Rate 80 80 91 Respiratory Rate 19 H 19 H 35 H Respiratory Effort Respiratory Depth Respiratory Pattern Tachypnea Blood Pressure 137/88 H 137/88 H Blood Pressure Mean 104 104 Pulse Ox 95 95 99 Oxygen Delivery Method Nasal Cannula Nasal Cannula Oxygen Flow Rate (L/min) 5 5 Fraction of Inspired Oxygen (FIO2) 35 Positive well nourished and well developed General Appearance ED: well developed HEENT Reports moist mucous membranes Neck supple and no meningeal signs Resp normal respiratory effort Auscultation: diminished lung sounds diffuse Cardio regular rate and regular rhythm GI normal to inspection, nondistended, normoactive bowel sounds and non-tender Palpation: soft Extremity normal to inspection General Extremety ED: Yes edema; Negative for tenderness General Extremity: edema bilateral lower extremity Details: mild Neuro oriented x3, CN's II-XII intact bilaterally and no sensory deficits noted Sensorium / Orientation: alert Motor Exam: strength 5/5 throughout Psych mental status grossly normal Skin no rashes or lesions noted MDM MDM MDM Narrative Medical decision making narrative: Differential diagnosis includes pneumonia, COPD, congestive heart failure, cardiac dysrhythmia, cardiac ischemia, and acute kidney injury. Patient is not tachycardic and has no PE risk factors. Patient has a Wells score of 0. The refore, I do not feel is from a pulmonary embolism. EKG will be obtained to assess for cardiac dysrhythmia and cardiac ischemia. Chest x-ray will be obtained to assess for pneumonia and congestive heart failure. CBC will be obtained to assess for leukocytosis and anemia. Basic metabolic profile will be obtained to assess for electrolyte abnormality and renal function. High- sensitivity troponin will be obtained to assess for cardiac ischemia. 2-hour repeat high-sensitivity troponin will be obtained to assess for ongoing cardiac ischemia. Lab Data Attestation: I reviewed the patient's lab results. Lab results narrative: CBC was reviewed and was within normal limits. Basic metabolic profile was reviewed. BUN was slightly elevated at 24. CO2 was elevated at 39. The remainder was within normal limits. BNP was reviewed and was normal at 45.7. Labs: Laboratory Results - last 24 hr 03/04/23 22:40 WBC 9.6 RBC 4.32 L Hgb 13.7 Hct 42.6 MCV 98.6 H MCH 31.7 MCHC 32.2 RDW Std Deviation 46.9 H RDW Coeff of Alon 12.8 Plt Count 216 MPV 10.0 Immature Gran % (Auto) 1.000 H Neut % (Auto) 61.2 Lymph % (Auto) 21.8 Carter % (Auto) 14.2 H Eos % (Auto) 1.2 Baso % (Auto) 0.6 Absolute Neuts (auto) 5.9 Absolute Lymphs (auto) 2.10 Nucleated RBC % 0 Sodium 136 Potassium 4.5 Chloride 97 L Carbon Dioxide 39.0 H Anion Gap 0 L BUN 24 H Creatinine 0.96 Estim Creat Clear Calc 63.38 Est GFR (MDRD) Af Amer 101 Est GFR (MDRD) Non-Af 83 BUN/Creatinine Ratio 25.1 H Glucose 81 Calcium 9.4 B-Natriuretic Peptide 45.7 Radiography Chest X-Ray - ED: 1 View, Read by ED Physician, Read by Radiologist, Chronic Changes, Right Infiltrate and Left Infiltrate Diagnostic Testing: Clinical Impression(s) from Imaging Studies Chest X-Ray 03/04/23 23:30 IMPRESSION: Bibasilar pneumonia. Electronically Signed: Jamey Jaime MD at 23:39 EDT , Portable 1 view chest x-ray was obtained. On my independent interpretation, lung barajas show evidence of COPD and bibasilar infiltrates. There is normal cardiac silhouette. Bony thorax is normal. Radiologist also interpreted the x- ray and agrees. EKG Initial EKG: Attestation: I personally reviewed and interpreted this EKG as follows: Interpretation: Sinus Rhythm (88) and No Acute Injury Pattern Comments: EKG was obtained. On my independent interpretation, it showed a normal sinus rhythm with a rate of 88. IN interval, QRS interval, and QTc intervals were all normal. There is left axis deviation at -71. There are no acute ST or T wave changes. Prior EKG tracings: available for review Prior: Unchanged (07/23/2022) Management Discussion w/another healthcare provider: Hospitalist Treatment and Re-Evaluation :: Patient was advised of his findings. Patient is doing well on 5 L nasal cannula. Patient states he is normally on 4 L nasal cannula at home. 2 blood cultures were obtained. Serum lactate was obtained. PT with INR and PTT were obtained. Case was discussed with the hospitalist. She will admit the patient to PCU. Patient was started on Rocephin and Zithromax here. Patient was advised of the need for hospitalization. Patient is agreeable with this. Discharge Plan Triage Chief Complaint: Shortness of Breath ED Provider: Jameel Puente Dx/Rx/DC Orders Clinical Impression: COPD (chronic obstructive pulmonary disease), Bilateral pneumonia Prescriptions: No Action ciclopirox [Loprox (as olamine)] 0.77 % cream 1 applic TOPICAL BID PRN (Reason: atheletes foot) trazodone 50 mg tablet 50 mg PO QHS baclofen 10 mg tablet 10 mg PO BID ibuprofen 200 mg tablet 800 mg PO HS PRN (Reason: Pain) nicotine 14 mg/24 hr patch 24 hour 1 patch transdermal Q24H Qty: 28 3RF Dulera 100-5 mcg/actuation HFA aerosol inhaler 2 puff inhalation Q12H Qty: 13 6RF melatonin 10 mg tablet 10 mg PO HS PRN (Reason: Sleep) oxycodone-acetaminophen 1 TABLET tablet 1 tab PO 4X/DAY PRN (Reason: Pain) lorazepam 0.5 mg tablet 0.5 mg PO BID tamsulosin 0.4 MG capsule 0.4 mg PO BID aspirin 81 mg tablet,chewable 81 mg PO .QOD ropinirole 0.5 MG tablet 0.5 mg PO QHS docusate sodium 100 mg capsule 100 mg PO BID Patient Comments: TAKE 1 CAPSULE BY MOUTH TWICE DAILY NEEDED FOR CONSTIPATION. Combivent Respimat 20-100 mcg/actuation mist 1 puff INHALATION Q6H Qty: 3 3RF mometasone 50 mcg/actuation spray,non-aerosol 2 spray INTRANASAL DAILY Qty: 17 6RF Daliresp 500 mcg tablet 500 mcg PO DAILY Qty: 30 11RF potassium chloride 10 mEq tablet extended release 10 meq PO DAILY Qty: 30 11RF ipratropium-albuterol 0.5 mg-3 mg(2.5 mg base)/3 mL solution for nebulization 3 ml INHALATION .QID Qty: 180 5RF Rx Instructions: J44.9 COPD albuterol sulfate [ProAir HFA] 90 mcg/actuation HFA aerosol inhaler 2 puff INHALATION Q4H PRN (Reason: Sob &/Or Wheezing) Qty: 8.5 5RF montelukast 10 mg tablet 10 mg PO DAILY Qty: 90 3RF furosemide 20 mg tablet See Rx Instructions .ROUTE .COMPLEX Qty: 90 3RF Dose Instruction: TAKE ONE TABLET BY MOUTH DAILY Rx Instructions: TAKE ONE TABLET BY MOUTH DAILY guaifenesin 1,200 mg tablet extended release 12hr 1,200 mg PO Q12H Qty: 60 6RF benzonatate 200 mg capsule 200 mg PO TID PRN (Reason: Cough) Qty: 90 5RF Primary Care Provider: Srinivasa Henao Referrals: Srinivasa Henao MD [Primary Care Provider] - Disposition Disposition: Acute Care Hospital [facility]
--- NOTE | 2023-03-04 23:06 | EKG12_ITS ---
Test Reason : CHEST PAIN Blood Pressure : / mmHG Vent. Rate : 088 BPM Atrial Rate : 088 BPM P-R Int : 154 ms QRS Dur : 110 ms QT Int : 368 ms P-R-T Axes : 054 -71 057 degrees QTc Int : 445 ms Normal sinus rhythm Left axis deviation Inferior infarct , age undetermined Abnormal ECG Confirmed by RANDY VAZQUEZ, DALIA ([id number]), book editor NATALY FULLER ([id number]) on 03/05/2023 12:34:00 PM Referred By: SILAS Confirmed By:DALIA PADILLA MD
[2023-03-04 23:30] LABS: Anion Gap 0 (5-15); BUN 24 mg/dL (7-18); BUN/Creat Ratio 25.1 RATIO (10-20); Calcium,Total 9.4 mg/dL (8.5-10.1); Chloride 97 mmol/L (98-107); Creatinine, Serum 0.96 mg/dL (0.70-1.30); EST Glomerular Filtration Rate 83 mL/min (>60); Est Glom Filt Rate - Afr Amer 101 mL/min (>60); Estimated Creatinine Clearance 63.38 ml/min; Glucose 81 mg/dL (74-106); Potassium 4.5 mmol/L (3.5-5.1); Sodium Level 136 mmol/L (136-145)
--- NOTE | 2023-03-04 23:30 | RAD_ITS ---
STUDY: X-RAY CHEST REASON FOR EXAM: Male, 67 years old. Dyspnea TECHNIQUE: Single AP portable view of the chest. COMPARISON: 07/23/2022 FINDINGS: Alveolar opacity both lung bases consistent with bibasilar pneumonia. There is no demonstrated pleural abnormality. There is moderate cardiac enlargement. Normal mediastinum and emmanuel. Normal visualized pulmonary arteries. Normal visualized aortic arch and descending thoracic aorta. Normal visualized thoracic spine. Healed fracture of the left clavicle. There is no demonstrated abnormality of the visualized soft tissue structures of the upper abdomen. RAD/Chest 1 View (Portable) IMPRESSION: Bibasilar pneumonia. Electronically Signed: Jamey Jaime MD at 23:39 EDT ,
[2023-03-04] MEDS: Albuterol 2.5 MG/3 ML VIAL.NEB. INHALATION (23:41)
[2023-03-04 23:42] VITALS: PULSE 85; RESP 28
[2023-03-04 23:42] LABS: Absolute Neutrophil Count 5.9 X10^3/uL (2.0-7.7); Basophil# 0.06 X10^3/uL; Basophil% 0.6 % (0-1); Eosinophil# 0.12 X10^3/uL; Eosinophils% 1.2 % (0-5); Hematocrit 42.6 % (40-54); Hemoglobin 13.7 g/dL (13.0-16.5); Lymphocyte % 21.8 % (19-41); Mean Corp Hgb Conc 32.2 g/dL (32-36); Mean Corpuscular Hgb 31.7 pg (27.0-32.0); Mean Corpuscular Volume 98.6 fL (80-94); Monocyte# 1.37 X10^3/uL; Monocyte% 14.2 % (0-10); NRBC Flagged by Analyzer 0 % (0-5); Neutrophil # 5.87 X10^3/uL (2.7-7.7); Neutrophil % 61.2 % (47-70); Platelet Count 216 K/mm3 (150-450); RBC Distribution Width CV 12.8 % (11.6-14.6); RBC Distribution Width SD 46.9 fl (35.1-43.9); Red Blood Count 4.32 M/mm3 (4.6-6.2); White Blood Count 9.6 K/mm3 (4.4-11.0)
[2023-03-05] VITALS (16 sets, daily range): BP systolic 117–137; BP diastolic 74–88; PULSE 79–88; RESP 19–34; TEMP 36.1–37; O2SAT 89–97; BMI 25.4
--- NOTE | 2023-03-05 00:24 | ED.RN ---
Pt refusing to put NC into nose sating it helps if it is in his mouth. RN and respiratory offered mask and BIPAP, pt refused.
[2023-03-05 00:26] LABS: BNP,B-Type NATRIURETIC PEPTIDE 45.7 pg/mL (0-100)
--- NOTE | 2023-03-05 01:15 | HP.PCM.HOS_ITS ---
HPI - General General Date of Admission: 03/05/23 Date of Service: 03/05/23 Chief Complaint: Dyspnea. HPI Narrative The patient is a 67 y/o M w/ PMHx: Chronic BL LE edema, Nonobstructive CAD, Anxiety and Depression, COPD with Chronic Hypoxic Respiratory Failure (4L NC), KARIN, BPH, Former tobacco use who presents to the [facility] ED on 03/04/23 with history of shortness of breath worsening over the last 24 hours, worse with exertion with mild associated rhinorrhea but no marked cough with subjective chills but no specific fevers with some mild substernal left upper chest pleuritic discomfort as well as aching and pressure-like sensation prompting eventual ED evaluation. He is unsure of ill contacts. He notes chronic difficulty laying flat and some baseline dyspnea with activities but this presentation has more severe. Work-up in the ED includes T98.2, heart rate 88, BP 144/94, respiratory rate 23, 100% on BiPAP with FiO2 35%, CBC with WBC 9.6, Hgb 13.7, platelet 216 with increased immature granulocytes, BMP with chloride 97, carbon oxide 39, BUN/creatinine 24/0.96 otherwise not marked appearing, BNP 45.7, chest x-ray with bibasilar pneumonia, lactic acid pending upon requested evaluation of patient, pending blood culture x2 per ED. in the ED patient administered IV Rocephin as well as IV azithromycin and albuterol therapy. EMS while in route administered IV solumedrol also. [facility] Medical History (Updated 03/05/23 @ 01:[address] Cinthya Wilson MD) Allergic rhinitis Anxiety and depression Bipolar disorder BPH (benign prostatic hyperplasia) Chronic back pain Chronic respiratory failure with hypoxia Esophageal reflux Former tobacco use Incomplete right bundle branch block Left ventricular hypertrophy Morbid obesity due to excess calories KARIN (obstructive sleep apnea) PSA elevation Stage 3 severe COPD by GOLD classification Ventral hernia Home Medications oxycodone-acetaminophen 5 mg-325 mg tablet 1 tab PO 4X/DAY PRN Pain 01/30/14 [History Last Taken 06/08/20] tamsulosin 0.4 mg capsule 0.4 mg PO BID 10/24/17 [History Last Taken 06/12/18] ropinirole 0.5 mg tablet 0.5 mg PO QHS Restless leg syndrom 05/05/18 [History Last Taken 05/03/18] baclofen 10 mg tablet 10 mg PO BID 06/03/18 [History Last Taken Unknown] ciclopirox 0.77 % topical cream (Loprox (as olamine)) 1 applic topical BID PRN atheletes foot 06/03/18 [History Last Taken Unknown] ibuprofen 200 mg tablet 800 mg PO HS PRN Pain 06/03/18 [History Last Taken 06/12/18] lorazepam 0.5 mg tablet 0.5 mg PO BID Anxiety 06/03/18 [History Last Taken 06/08/20] trazodone 50 mg tablet 50 mg PO QHS 06/03/18 [History Last Taken Unknown] ipratropium 20 mcg-albuterol 100 mcg/actuation mist for inhalation (Combivent Respimat) 1 puff inhalation Q6H #3 device 08/16/21 [Rx Last Taken Unknown] mometasone 50 mcg/actuation nasal spray 2 spray intranasal DAILY #17 grams 01/02/22 [Rx Last Taken Unknown] roflumilast 500 mcg tablet (Daliresp) 500 mcg PO DAILY #30 tabs 03/13/22 [Rx Last Taken Unknown] nicotine 14 mg/24 hr daily transdermal patch 1 patch transdermal Q24H #28 ea 04/18/22 [Rx Last Taken Unknown] aspirin 81 mg chewable tablet 81 mg PO .QOD 06/29/22 [History Last Taken Unknown] melatonin 10 mg tablet 10 mg PO HS PRN Sleep 06/29/22 [History Last Taken Unkn own] potassium chloride 10 mEq tablet,extended release 10 meq PO DAILY #30 tabs 07/25/22 [Rx Last Taken Unknown] ipratropium 0.5 mg-albuterol 3 mg (2.5 mg base)/3 mL nebulization soln 3 ml inhalation .QID #180 mL 07/28/22 [Rx Last Taken Unknown] albuterol sulfate 90 mcg/actuation aerosol inhaler (ProAir HFA) 2 puff inhalation Q4H PRN Sob &/Or Wheezing #8.5 grams 08/17/22 [Rx Last Taken Unknown] mometasone-formoterol HFA 100 mcg-5 mcg/actuation aerosol inhaler (Dulera) 2 puff inhalation Q12H #13 grams 09/26/22 [Rx Last Taken Unknown] montelukast 10 mg tablet 10 mg PO DAILY #90 tabs 11/07/22 [Rx Last Taken Unknown] furosemide 20 mg tablet See Rx Instructions .Route .COMPLEX #90 tabs 12/25/22 [ Rx Last Taken Unknown] guaifenesin 1,200 mg tablet, extended release 12 hr 1,200 mg PO Q12H #60 tabs 01/19/23 [Rx Last Taken Unknown] benzonatate 200 mg capsule 200 mg PO TID PRN Cough #90 caps 01/25/23 [Rx Last Taken Unknown] docusate sodium 100 mg capsule 100 mg PO BID 03/05/23 [History Last Taken Unknown] Allergy/AdvReac Type Severity Reaction Status Date / Time No Known Allergies Allergy Verified 03/04/23 22:49 Family History Mother Cancer Cervical Father Cancer Brain with metastasis Sister Bipolar disorder Daughter Bipolar disorder Brother Cancer Brain Surgical History History of carpal tunnel surgery of right wrist History of colonoscopy History of left heart catheterization (06/12/18) History of umbilical hernia repair History of vasectomy Hx of inguinal hernia repair (~10/2022) Social History Smoking Status: Former smoker Tobacco: How many years used: 30 second hand exposure: Yes alcohol intake: former substance use type: former substance user 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 HEENT: Eyes: No visual loss, blurred vision, double vision or yellow sclerae. Ears, Nose, Throat: No hearing loss, sneezing, congestion, runny nose or sore throat. SKIN: No rash or itching, lesions, wounds. CARDIOVASCULAR: + Chronic BL LE edema, orthopnea. No chest pain, chest pressure or chest discomfort, palpitations, syncopal events. RESPIRATORY: + Shortness of breath, cough without marked sputum, wheezing, No hemoptysis. GASTROINTESTINAL: No anorexia, nausea, vomiting or diarrhea, abdominal pain, melena, BRBPR. GENITOURINARY: No dysuria, frequency, urgency or retention. NEUROLOGICAL: No headache, dizziness, syncope, paralysis, ataxia, numbness or tingling in the extremities, focal weakness, change in bowel or bladder control, seizure. MUSCULOSKELETAL: No muscle, back pain, joint pain or stiffness. HEMATOLOGIC: No anemia, bleeding or bruising. LYMPHATICS: No enlarged nodes. No history of splenectomy. PSYCHIATRIC: + history of depression or anxiety. ENDOCRINOLOGIC: No reports of sweating, cold or heat intolerance. No polyuria or polydipsia. ALLERGIES: + history of rhinitis. Vital Signs Vital Signs Vital Signs: 03/04/23 22:41 03/04/23 22:47 03/04/23 23:42 Temperature 98.2 F Temperature Source Temporal Pulse Rate 88 85 Respiratory Rate 23 H 28 H Respiratory Effort Short of Breath Accessory Muscle Use Nasal Flaring Respiratory Depth Deep Respiratory Pattern Tachypnea Tachypnea Blood Pressure 144/94 H Blood Pressure Mean 110 Pulse Ox 100 Oxygen Delivery Method Bi-pap Oxygen Flow Rate (L/min) Fraction of Inspired Oxygen (FIO2) 35 03/05/23 00:01 03/05/23 00:02 03/04/23 22:45 Temperature 98.6 F Temperature Source Temporal Pulse Rate 80 80 91 Respiratory Rate 19 H 19 H 35 H Respiratory Effort Respiratory Depth Respiratory Pattern Tachypnea Blood Pressure 137/88 H 137/88 H Blood Pressure Mean 104 104 Pulse Ox 95 95 99 Oxygen Delivery Method Nasal Cannula Nasal Cannula Oxygen Flow Rate (L/min) 5 5 Fraction of Inspired Oxygen (FIO2) 35 Weight Weight: 158 lb 4.67 oz Body Mass Index (BMI) 27.1 Physical Exam Narrative Physical Examination: General: Awake, alert, oriented x 3 and cooperative, seated upright in the ED bed, fatigued, mildly tremulous likely from recent aggressive aerosol interventions, no evidence of any respiratory distress at this time. Skin: Normal color, normal turgor, no icterus, no cyanosis. HEENT: AT/NC, EOMI, PERRLA, mildly dry MM, using the nasal cannula with oxygen into his mouth as opposed to his naris no carotid bruits or JVD noted. Lungs: Severely diffusely diminished, greater bases, mildly rhonchorous, diffuse end expiratory wheezing, mildly increased respiratory rate but no distress, no rales. Heart: Currently regular rate and rhythm; no gallop, rub audible. Abdomen: Soft, NTTP, ND, distant normal BS, no HSM. Extremities: No cyanosis, no clubbing, bilateral ankle to distal schmitz chronic not markedly pitting edema. Neurological: Patient awake, alert, oriented as noted, cognitive function intact; pupils equally reactive to light and accommodation, cranial nerves II- XII grossly normal, moving all 4 extremities, no focal deficits, strength moderately to severely globally decreased secondary to acute presentation. Psychiatric: Affect appears fatigued but notes feeling improved since initial ED arrival, no acute evidence of depressive or anxiety feelings but does have underlying history. Results Lab / Micro Data 03/04/23 22:40 03/04/23 22:40 Labs: Laboratory Results - last 24 hr 03/04/23 22:40: WBC 9.6, RBC 4.32 L, Hgb 13.7, Hct 42.6, MCV 98.6 H, MCH 31.7, MCHC 32.2, RDW Std Deviation 46.9 H, RDW Coeff of Alon 12.8, Plt Count 216, MPV 10.0, Immature Gran % (Auto) 1.000 H, Neut % (Auto) 61.2, Lymph % (Auto) 21.8, [place] % (Auto) 14.2 H, Eos % (Auto) 1.2, Baso % (Auto) 0.6, Absolute Neuts (auto) 5.9, Absolute Lymphs (auto) 2.10, Nucleated RBC % 0, Sodium 136, Potassium 4.5, Chloride 97 L, Carbon Dioxide 39.0 H, Anion Gap 0 L, BUN 24 H, Creatinine 0.96, Estim Creat Clear Calc 63.38, Est GFR (MDRD) Af Amer 101, Est GFR (MDRD) Non-Af 83, BUN/Creatinine Ratio 25.1 H, Glucose 81, Calcium 9.4, B-Natriuretic Peptide 45.7 Radiology Impression Chest X-Ray 03/04/23 23:30 IMPRESSION: Bibasilar pneumonia. Electronically Signed: Jamey Jaime MD at 23:39 EDT , Assessment & Plan Assessment/Plan (1) Pneumonia: QUALIFIERS: Laterality: right Lung location: lower lobe of lung Pneumonia type: due to unspecified organism Qualified Code(s): J18.1 - Lobar pneumonia, unspecified organism PLAN: Plan The patient is a 67 y/o M w/ PMHx: Chronic BL LE Edema, Nonobstructive CAD, Anxiety and Depression, COPD with Chronic Hypoxic Respiratory Failure (4L), KARIN, BPH, Former tobacco use who presents to the [facility] ED on 03/04/23 with history of shortness of breath worsening over the last 24 hours, worse with exertion with mild associated rhinorrhea but no marked cough with subjective chills but no specific fevers with some mild substernal left upper chest pleuritic discomfort as well as aching and pressure-like sensation prompting eventual ED evaluation. #1. Acute on Chronic Hypoxic Respiratory Failure secondary to Acute on Chronic COPD exacerbation and Bibasilar Pneumonia complicated with allergic rhinitis: Will admit to PCU, maintain on oxygen with wean as tolerated to home oxygen supplementation, continue ATC duonebs, PRN albuterol, IV methylprednisolone, HOB, IS parameters, will obtain sputum Cx, urine antigens, respiratory viral panel, maintain on IV rocephin and azithromycin, HOB, IS parameters. We will continue patient home montelukast, mometasone home regimen concurrently. We will continue patient home Daliresp regimen. #2. Hypertension: Continue home regimen including Lasix with hold parameters as needed, PRN hydralazine. #3. Anxiety and depression/Bipolar disorder: We will continue patient home low- dose twice daily lorazepam regimen, would certainly recommend addition of SSRI if ongoing issues as well as outpatient therapy. We will temporally hold the patient nightly trazodone regimen and add back once appropriate. #4. Restless leg syndrome: We will continue patient home Requip regimen. #5. Former tobacco use: Encourage continued tobacco cessation. #6. BPH: We will continue patient home baclofen regimen. #7. KARIN: Will continue on BIPAP with transition to q HS. #8. Nonobstructive CAD: 2018 catheterization without marked findings, nonobstructive disease noted, following with Cardiology, maintained on asa, not on statin nor BB/ACEI/ARB, recent visit 12/04/22. #9. DVT prophylaxis: Lovenox. #10. CODE status: Patient HCPOA and LW are not in place. He notes if he was unable to make decisions for himself he would want his daughter to be his decision maker if necessary. Discussed CODE status at length including differe nce between FULL code, DNR-CCA and DNR-CC status. Following discussions about the differences in these status, requested DNR-CCA but allowance of intubation. Advanced Care Planning Face to Face Time:16 minutes. Admission Evaluation Time spent evaluating chart, patient history, patient evaluation, care planning and discussion with specialists: 75 minutes. Charges/Coding Visit Charges Inpatient E&M: 15138 Init Hosp L3 Procedures Hospitalists Procedures: 57063 Advncd Care Plan 30 Min
[2023-03-05 01:23] LABS: Lactic Acid 0.7 mmol/L (0.4-1.9)
[2023-03-05 01:57] LABS: Prothrombin Time (Protime)PT. 12.9 SECONDS (11.7-14.9)
[2023-03-05 01:58] LABS: Partial Thromboplast Time 30.6 Seconds (24.1-36.2)
[2023-03-05] MEDS: Baclofen 10 MG Tablet PO ×3 (03:51→21:36)
[2023-03-05] MEDS: oxyCODONE 5 MG Tablet PO ×2 (03:51→14:24)
[2023-03-05] MEDS: LORazepam 0.5 MG Tablet PO ×3 (03:51→21:34)
[2023-03-05] MEDS: Montelukast 10 MG Tablet PO ×2 (03:51→21:36)
[2023-03-05] MEDS: Pramipexole Di-HCl 0.25 MG Tablet PO ×2 (03:52→21:36)
[2023-03-05] MEDS: traZODone 50 MG Tablet PO ×2 (03:52→21:35)
[2023-03-05] MEDS: 0.9% Saline Lock 10 ML Syringe IV ×3 (05:26→21:48)
--- NOTE | 2023-03-05 06:00 | CPS ---
Pt refuses bipap. nasal o2 6L in mouth per patient. Resp panel sent to lab
[2023-03-05] MEDS: Ibuprofen 600 MG Tablet PO ×2 (06:02→21:41)
[2023-03-05 06:59] LABS: Absolute Lymphocyte Count 0.78 X10^3/uL (0.83-4.51); Absolute Neutrophil Count 6.9 X10^3/uL (2.0-7.7); Basophil# 0.01 X10^3/uL; Basophil% 0.1 % (0-1); Hematocrit 40.7 % (40-54); Hemoglobin 13.4 g/dL (13.0-16.5); Lymphocyte # 0.78 X10^3/ul (0.83-4.51); Mean Corp Hgb Conc 32.9 g/dL (32-36); Mean Corpuscular Hgb 31.5 pg (27.0-32.0); Mean Corpuscular Volume 95.8 fL (80-94); Mean Platelet Vol. 9.6 fl (6.2-12.0); Monocyte% 1.3 % (0-10); NRBC Flagged by Analyzer 0 % (0-5); Neutrophil # 6.86 X10^3/uL (2.7-7.7); Neutrophil % 88.3 % (47-70); Platelet Count 194 K/mm3 (150-450); RBC Distribution Width CV 12.7 % (11.6-14.6); RBC Distribution Width SD 44.9 fl (35.1-43.9); Red Blood Count 4.25 M/mm3 (4.6-6.2); White Blood Count 7.8 K/mm3 (4.4-11.0)
[2023-03-05] MEDS: Ipratropium/Albuterol Sulfate 3 ML AMPUL.NEB INHALATION ×4 (07:20→19:47)
[2023-03-05 07:26] LABS: ALB/GLOB Ratio 0.8 RATIO (0.9-2.4); AST(SGOT) 19 U/L (15-37); Alanine Aminotransfer ALT/SGPT 20 U/L (16-61); Albumin, Serum 3.1 g/dL (3.2-5.0); Alkaline Phosphatase 77 U/L (45-117); Anion Gap 0 (5-15); BUN 17 mg/dL (7-18); Calcium,Total 8.7 mg/dL (8.5-10.1); Chloride 97 mmol/L (98-107); Creatinine, Serum 0.55 mg/dL (0.70-1.30); EST Glomerular Filtration Rate 159 mL/min (>60); Est Glom Filt Rate - Afr Amer 192 mL/min (>60); Estimated Creatinine Clearance 60.84 ml/min; Globulin 3.9 g/dL (2.2-4.2); Glucose 172 mg/dL (74-106); Potassium 4.2 mmol/L (3.5-5.1); Sodium Level 134 mmol/L (136-145)
[2023-03-05] MEDS: Aspirin 81 MG TAB.CHEW PO (08:33)
[2023-03-05] MEDS: Docusate Sodium 100 MG Capsule PO ×2 (08:33→21:35)
[2023-03-05] MEDS: Furosemide 20 MG Tablet PO (08:33)
[2023-03-05] MEDS: Potassium Chloride Oral Tablet 10 MEQ PO (08:34)
[2023-03-05] MEDS: Tamsulosin HCl 0.4 MG Capsule PO ×2 (08:34→21:35)
[2023-03-05] MEDS: Fluticasone 0.05% 1 SPRAY NASAL.SRY 2 SPRAY NASAL (08:34)
[2023-03-05] MEDS: Enoxaparin 40 MG/0.4 ML Syringe SC (08:35)
--- NOTE | 2023-03-05 10:20 | CASEMGMT ---
SHAYY WEINER Face to Face with patient for initial transition planning/care coordination assessment. SHAYY WEINER introduced self and role at [facility]. Patient sitting in chair, alert and oriented. Patient willing to participate in assessment and is able to answer all questions appropriately. Care providers, pharmacy, and demographics verified. Patient wishes to discharge home and would like [facility]. Patient refused HHC list and prefers [facility]. Patient states he has no further needs or concerns at this time. CM to follow for discharge planning needs that may arise. PCP: Juliano Specialists: Saul, senior materials analyst; Cortney, psychiatrist Preferred Pharmacy: [facility] Insurance: [facility] Prescription Benefit: yes Living Will/HPOA: none LNOK: brother Living Arrangements: Patient lives alone in a first floor apartment with no steps to enter. Patient states he is independent at home. Transportation: self, friend DME/HHC: Patient has shower, grab bars, rollator, cpap, NIV, nebulzer, pulse ox, home oxygen through [facility] at 7lpm continuously with portability. Patient has aides 3 days per week through [place]. SHAYY WEINER called [facility] and made referral for SN, PT/OT, awaiting acceptance. Disposition Plan: Patient to discharge home with HHC, family support, and follow-up plans in place. Naomi RIVERA, RN, CM
--- NOTE | 2023-03-05 10:49 | CASEMGMT ---
Discharge Planning Referral sent to [facility] via [facility]. Discharge Planning Asst.
--- NOTE | 2023-03-05 11:13 | CASEMGMT ---
SHAYY WEINER received call from Marcy at [facility] and they are able to accept patient with start of care for Sunday. SHAYY WEINER updated patient and discharge plan. Green sheet of chart.
[2023-03-05] MEDS: guaiFENesin 1,200 MG Tablet 1200 MG PO ×2 (14:23→21:36)
[2023-03-05] MEDS: Acetaminophen 325 MG Tablet 650 MG PO (14:23)
--- NOTE | 2023-03-05 18:12 | PCM.HOSP.N ---
Hospitalist Note Mr. Purcell is a 67-year-old white male with a history of COPD and chronic hypoxic respiratory failure on 4 L nasal cannula who presented to the emergency department with worsening shortness of breath. Patient reported that it had gotten worse over the last 24 hours prior to admission and he was admitted early this morning. He had associated exertional dyspnea and rhinorrhea but no marked cough, or fevers. He did have some substernal pleuritic chest discomfort as well as chills. He was not clear if he had any recent ill contacts. Vital signs in the emergency department were unremarkable other than hypoxia and he was on BiPAP at that time but had since been transitioned to regular nasal cannula at 6 L. Chest x-ray showed possible bibasilar pneumonia and he was admitted to the medical floor and placed on Rocephin and a to be azithromycin. He did not have a white count or left shift on presentation and no significant cough so we were able to discontinue IV antibiotics and keep him on nebulizers scheduled, IV steroids, aggressive pulmonary toilet with incentive spirometry and Acapella. His viral respiratory PCR was positive for rhinovirus so I do suspect this is an acute exacerbation of COPD related to rhinovirus. We have been able to wean his oxygen to 5 L today. Will be maintained on the above therapies and reevaluated tomorrow for progress addition and ability for discharge. He will require home O2 evaluation prior to discharge.
--- NOTE | 2023-03-05 21:30 | CPS ---
patient refused bipap, sinuses clogged, cannula is in mouth
[2023-03-05] MEDS: MELATONIN 10 MG TABLET PO (21:34)
[2023-03-05] MEDS: Benzonatate 100 MG Capsule PO (21:34)
[2023-03-06] VITALS (12 sets, daily range): BP systolic 124–139; BP diastolic 64–87; PULSE 66–109; RESP 14–28; TEMP 36.6–36.8; O2SAT 89–98; BMI 25.4
[2023-03-06] MEDS: Benzonatate 100 MG Capsule PO ×3 (03:39→21:44)
[2023-03-06] MEDS: 0.9% Saline Lock 10 ML Syringe IV ×3 (06:04→21:45)
[2023-03-06 06:17] LABS: Absolute Lymphocyte Count 0.98 X10^3/uL (0.83-4.51); Basophil# 0.01 X10^3/uL; Basophil% 0.1 % (0-1); Hematocrit 41.2 % (40-54); Hemoglobin 13.1 g/dL (13.0-16.5); Lymphocyte # 0.98 X10^3/ul (0.83-4.51); Lymphocyte % 10.1 % (19-41); Mean Corp Hgb Conc 31.8 g/dL (32-36); Mean Corpuscular Hgb 30.9 pg (27.0-32.0); Mean Corpuscular Volume 97.2 fL (80-94); Mean Platelet Vol. 9.6 fl (6.2-12.0); Monocyte% 7.2 % (0-10); NRBC Flagged by Analyzer 0 % (0-5); Neutrophil # 7.95 X10^3/uL (2.7-7.7); Neutrophil % 82.4 % (47-70); Platelet Count 227 K/mm3 (150-450); RBC Distribution Width CV 12.6 % (11.6-14.6); RBC Distribution Width SD 45.2 fl (35.1-43.9); Red Blood Count 4.24 M/mm3 (4.6-6.2); White Blood Count 9.7 K/mm3 (4.4-11.0)
[2023-03-06 06:38] LABS: Anion Gap -1 (5-15); BUN 20 mg/dL (7-18); BUN/Creat Ratio 38.9 RATIO (10-20); Calcium,Total 8.5 mg/dL (8.5-10.1); Chloride 101 mmol/L (98-107); Creatinine, Serum 0.51 mg/dL (0.70-1.30); EST Glomerular Filtration Rate 171 mL/min (>60); Est Glom Filt Rate - Afr Amer 207 mL/min (>60); Estimated Creatinine Clearance 60.84 ml/min; Glucose 122 mg/dL (74-106); Magnesium 2.2 mg/dL (1.6-2.6); Phosphorus 3.9 mg/dL (2.5-4.9); Potassium 4.7 mmol/L (3.5-5.1); Sodium Level 138 mmol/L (136-145)
[2023-03-06] MEDS: Ipratropium/Albuterol Sulfate 3 ML AMPUL.NEB INHALATION ×4 (07:03→20:20)
[2023-03-06] MEDS: LORazepam 0.5 MG Tablet PO ×2 (10:19→21:44)
[2023-03-06] MEDS: Potassium Chloride Oral Tablet 10 MEQ PO (10:19)
[2023-03-06] MEDS: Furosemide 20 MG Tablet PO (10:20)
[2023-03-06] MEDS: Fluticasone 0.05% 1 SPRAY NASAL.SRY 2 SPRAY NASAL (10:20)
[2023-03-06] MEDS: Docusate Sodium 100 MG Capsule PO ×2 (10:20→21:43)
[2023-03-06] MEDS: Tamsulosin HCl 0.4 MG Capsule PO ×2 (10:20→21:44)
[2023-03-06] MEDS: Baclofen 10 MG Tablet PO ×2 (10:21→21:44)
[2023-03-06] MEDS: Enoxaparin 40 MG/0.4 ML Syringe SC (10:21)
[2023-03-06] MEDS: guaiFENesin 1,200 MG Tablet 1200 MG PO ×2 (10:21→21:44)
[2023-03-06] MEDS: oxyCODONE 5 MG Tablet PO ×2 (10:30→22:06)
[2023-03-06] MEDS: Oxymetazoline 0.05% 1 SPRAY SPRAY.BTL NASAL ×2 (11:33→21:45)
[2023-03-06] MEDS: BENZOCAINE/MENTHOL 1 LOZENGE MUCOUS MEM ×2 (13:20→22:06)
--- NOTE | 2023-03-06 13:38 | PN.HOSP_ITS ---
Reason for Visit Reason for Visit: Shortness of breath Subjective Subjective Patient complaining of nasal congestion. He states he takes Afrin regularly at home. I do suspect he has rebound syndrome related to his chronic Afrin use but will order for 3 days. Also will trial [place] nasal spray. He is on Flonase but states this is not helpful and does not work. He complains of significant fatigue and is refusing to get out of bed and asked for a male pure wick to urinate with. I did recommend he get out of bed utilize the bathroom at least a urinal to improve his functional status. If not he is going to require discharge to a facility for ongoing rehab. Patient argumentative with reasoning. Objective Data Objective Data Vital Signs: Vital Signs Temp Pulse Resp BP Pulse Ox O2 Del Method O2 Flow Rate 97.8 F 101 H 24 H 139/87 H 89 Nasal Cannula 5 03/06/23 03:49 03/06/23 11:48 03/06/23 11:48 03/06/23 03:49 03/06/23 11:48 03/06/23 11:48 03/06/23 11:48 FiO2 35 03/04/23 22:45 Oxygen Flow Rate (L/min) 5 Oxygen Delivery Method Nasal Cannula Weight: 67.5 kg Body Mass Index (BMI) 25.4 Intake & Output: Intake and Output for Last 24 Hours 03/04/23 03/05/23 03/06/23 23:59 23:59 23:59 Intake Total 805.0 / 805.0 360 / 360 Output Total 550 / 550 2450 / 2450 Balance 255.0 / 255.0 -2090 / -2090 Lab / Micro Data 03/06/23 05:59 03/06/23 05:59 Labs: Laboratory Results - last 24 hr 03/06/23 05:59: WBC 9.7, RBC 4.24 L, Hgb 13.1, Hct 41.2, MCV 97.2 H, MCH 30.9, MCHC 31.8 L, RDW Std Deviation 45.2 H, RDW Coeff of [place]oln 12.6, Plt Count 227, MPV 9.6, Immature Gran % (Auto) 0.200, Neut % (Auto) 82.4 H, Lymph % (Auto) 10.1 L, [place] % (Auto) 7.2, Eos % (Auto) 0.0, Baso % (Auto) 0.1, Absolute Neuts (auto) 8.0 H, Absolute Lymphs (auto) 0.98, Nucleated RBC % 0, Sodium 138, Potassium 4.7, Chloride 101, Carbon Dioxide 38.0 H, Anion Gap -1 L, BUN 20 H, Creatinine 0.51 L, Estim Creat Clear Calc 60.84, Est GFR (MDRD) Af Amer 207, Est GFR (MDRD) Non-Af 171, BUN/Creatinine Ratio 38.9 H, Glucose 122 H, Calcium 8.5, Phosphorus 3.9, Magnesium 2.2 Micro: Microbiology 03/05/23 11:09 Sputum, Expectorated/Coughed Gram Stain - Final 03/05/23 11:09 Sputum, Expectorated/Coughed Respiratory Culture - Preliminary Appears to be normal respiratory matthew. Further studies to follow. 03/05/23 05:56 Mucosa - Nasopharyngeal Respiratory Panel (PCR) - Final Rhinovirus 03/05/23 03:31 Urine, Random Legionella Antigen - Final 03/05/23 03:31 Urine, Random Streptococcus pneumoniae Antigen (M - Final Physical Exam Const alert and oriented x3 Constitutional Narrative: Upper middle-aged, white male, sitting up in bed, on supplemental nasal cannula at 5 L, appears older than stated age, appears ill but nontoxic HEENT head/scalp atraumatic and moist oral mucous membranes HEENT Narrative: Dentures in place, Mallampati 2, no thrush Resp normal respiratory effort, no retractions, no use of accessory muscles and No clear to auscultation bilaterally Resp Narrative: Scattered end expiratory wheeze, no rhonchi Auscultation: wheezes; Negative for rales or rhonchi Cardio regular rate, regular rhythm, S1 normal heart sound, S2 normal heart sound, no murmurs, no rub, no gallops and no clicks GI normal to inspection, nondistended, normoactive bowel sounds, soft to palpation and non-tender Extremity no clubbing, cyanosis or edema Extremity Narrative: Pedal pulses are 2+ Neuro oriented x3, moves all extremities and no focal motor deficits Neuro Narrative: Generalized weakness noted Psych Psych Narrative: Affect is flat, patient is somewhat argumentative during his exam and interview Assessment & Plan Assessment/Plan (1) Pneumonia: QUALIFIERS: Pneumonia type: due to unspecified organism [place] terality: right Lung location: lower lobe of lung Qualified Code(s): J18.1 - Lobar pneumonia, unspecified organism (2) COPD with acute exacerbation: (3) Rhinovirus infection: (4) Rhinitis medicamentosa: PLAN: Plan Acute on chronic hypoxic respiratory failure secondary to viral pneumonia with r hinovirus/COPD exacerbation -Antibiotics discontinued yesterday -Oxygen down to 5 L--> baseline is 4-4-1/2 -We will need to require less than 6 L with ambulation for discharge -Continue aggressive pulmonary toilet -Continue I-S/Pep therapy -Encourage patient to move and get out of bed as he has been somewhat sedentary and refusing to even get up to go to the bathroom -Continue IV steroids and will plan for a slow prednisone taper at discharge -Continue Mucinex -Continue Tesalekseyon Perles -Recommend outpatient follow-up with pulmonary medicine after discharge Rhinitis medicamentosa -Patient uses chronic Afrin at home and has chronic runny nose -I tried to explain that this is probably what is the etiology of his chronic congestion and he was argumentative -We will dose Afrin 1 spray twice daily for 3 days to help with his congestion -[place] nasal spray -Continue Flonase -Highly recommend that the patient wean off his Afrin use at home Hypertension -Continue home diuretics with Lasix 20 mg daily COPD -Last FEV1 was 30% predicted -Per Gold classification has stage III severe COPD -Restart home inhalers as able after discharge -Outpatient pulmonary follow-up within 1 to 2 weeks after discharge we will arrange Restless leg syndrome -Continue home Requip KARIN -Continue home BiPAP nightly CAD -Nonobstructive on 2017 cath -Patient takes no chronic medications for this and follows with cardiology Bipolar disorder/anxiety/depression -Continue home trazodone -Continue home lorazepam Restless leg syndrome -Continue home Requip BPH -Continue home Flomax History of tobacco abuse -Encouraged ongoing cessation DVT prophylaxis -Continue Lovenox CODE STATUS -DNR CCA okay for short-term intubation Charges/Coding Visit Charges Inpatient E&M: 14154 Subs Hosp L2
[2023-03-06] MEDS: traZODone 50 MG Tablet PO (21:44)
[2023-03-06] MEDS: MELATONIN 10 MG TABLET PO (21:44)
[2023-03-06] MEDS: Pramipexole Di-HCl 0.25 MG Tablet PO (21:44)
[2023-03-06] MEDS: Montelukast 10 MG Tablet PO (21:44)
[2023-03-06] MEDS: Ibuprofen 600 MG Tablet PO (22:06)
[2023-03-07] VITALS (8 sets, daily range): BP systolic 115–126; BP diastolic 63–78; PULSE 75–106; RESP 16–28; TEMP 36.3–37.4; O2SAT 89–96; BMI 25.8
[2023-03-07] MEDS: Ipratropium/Albuterol Sulfate 3 ML AMPUL.NEB INHALATION ×3 (07:20→15:04)
[2023-03-07] MEDS: Potassium Chloride Oral Tablet 10 MEQ PO (10:44)
[2023-03-07] MEDS: Aspirin 81 MG TAB.CHEW PO (10:44)
[2023-03-07] MEDS: Docusate Sodium 100 MG Capsule PO (10:45)
[2023-03-07] MEDS: Tamsulosin HCl 0.4 MG Capsule PO (10:45)
[2023-03-07] MEDS: Enoxaparin 40 MG/0.4 ML Syringe SC (10:45)
[2023-03-07] MEDS: Baclofen 10 MG Tablet PO (10:45)
[2023-03-07] MEDS: Fluticasone 0.05% 1 SPRAY NASAL.SRY 2 SPRAY NASAL (10:46)
[2023-03-07] MEDS: guaiFENesin 1,200 MG Tablet 1200 MG PO (10:46)
[2023-03-07] MEDS: Oxymetazoline 0.05% 1 SPRAY SPRAY.BTL NASAL (10:46)
[2023-03-07] MEDS: LORazepam 0.5 MG Tablet PO (10:54)
[2023-03-07] MEDS: Ibuprofen 600 MG Tablet PO (10:55)
--- NOTE | 2023-03-07 12:03 | CASEMGMT ---
Addendum entered by Cele Toledo 03/07/23 13:30: Correction: HHC scheduled for tomorrow, 03/08. (Not Sunday) Addendum entered by Cele Toledo 03/07/23 13:25: Rebeca states she has spoken w/pt and SOC is scheduled for Sunday. Original Note: SHAYY WEINER NOTE: Dr Baca states pt has appt w/Savannah Musa HARDWARE ENGINEER/pulmonology on Sunday and that pt states he is not sure if he will feel well enough to drive to the appt and she requested [facility] van transp be set up. SHAYY WEINER to room to talk w/pt and to inquire about time of appt on Sun. He states it is @ 1:15 PM but he does not want [facility] van transp set up, stating if he does not feel up to driving on Sunday that he has someone that can take him. SHAYY WEINER notified pt that [facility] would be notified he is discharging home today and they will f/u with him re: home visit appt. Pt has portable O2 tank from [facility] in his room to go home on and pt and RN verified tank is full. Shorty RIVERA RN CM
--- NOTE | 2023-03-07 12:19 | PCM.DC.SUM ---
Providers Date of Admission: 03/05/23 Date of Discharge: 03/07/23 Primary Care Physician: Dr. Srinivasa Henao MD Reason For Visit: COPD EXAC, PNA Diagnosis Discharge Diagnosis (1) Pneumonia: Status: Resolved Code(s): J18.9 - Pneumonia, unspecified organism Qualifiers: Laterality: right Lung location: lower lobe of lung Pneumonia type: due to unspecified organism Qualified Code(s): J18.1 - Lobar pneumonia, unspecified organism (2) COPD with acute exacerbation: Status: Chronic Code(s): J44.1 - Chronic obstructive pulmonary disease with (acute) exacerbation (3) Rhinovirus infection: Status: Acute Code(s): B34.8 - Other viral infections of unspecified site (4) Rhinitis medicamentosa: Status: Acute Code(s): J31.0 - Chronic rhinitis; T48.5X5A - Adverse effect of other rjxs-woqtyj-rbgo drugs, initial encounter Medications at Discharge Home Medications oxycodone-acetaminophen 5 mg-325 mg tablet 1 tab PO 4X/DAY PRN Pain 01/30/14 tamsulosin 0.4 mg capsule 0.4 mg PO BID 10/24/17 ropinirole 0.5 mg tablet 0.5 mg PO QHS Restless leg syndrom 05/05/18 baclofen 10 mg tablet 10 mg PO BID 06/03/18 ciclopirox 0.77 % topical cream (Loprox (as olamine)) 1 applic topical BID PRN atheletes foot 06/03/18 ibuprofen 200 mg tablet 800 mg PO HS PRN Pain 06/03/18 lorazepam 0.5 mg tablet 0.5 mg PO BID Anxiety 06/03/18 trazodone 50 mg tablet 50 mg PO QHS 06/03/18 ipratropium 20 mcg-albuterol 100 mcg/actuation mist for inhalation (Combivent Respimat) 1 puff inhalation Q6H #3 device 08/16/21 mometasone 50 mcg/actuation nasal spray 2 spray intranasal DAILY #17 grams 01/02/22 nicotine 14 mg/24 hr daily transdermal patch 1 patch transdermal Q24H #28 ea 04/18/22 aspirin 81 mg chewable tablet 81 mg PO .QOD 06/29/22 melatonin 10 mg tablet 10 mg PO HS PRN Sleep 06/29/22 potassium chloride 10 mEq tablet,extended release 10 meq PO DAILY #30 tabs 07/25/22 ipratropium 0.5 mg-albuterol 3 mg (2.5 mg base)/3 mL nebulization soln 3 ml inhalation .QID #180 mL 07/28/22 albuterol sulfate 90 mcg/actuation aerosol inhaler (ProAir HFA) 2 puff inhalation Q4H PRN Sob &/Or Wheezing #8.5 grams 08/17/22 mometasone-formoterol HFA 100 mcg-5 mcg/actuation aerosol inhaler (Dulera) 2 puff inhalation Q12H #13 grams 09/26/22 montelukast 10 mg tablet 10 mg PO DAILY #90 tabs 11/07/22 furosemide 20 mg tablet See Rx Instructions .Route .COMPLEX #90 tabs 12/25/22 guaifenesin 1,200 mg tablet, extended release 12 hr 1,200 mg PO Q12H #60 tabs 01/19/23 benzonatate 200 mg capsule 200 mg PO TID PRN Cough #90 caps 01/25/23 docusate sodium 100 mg capsule 100 mg PO BID 03/05/23 roflumilast 500 mcg tablet (Daliresp) 500 mcg PO DAILY #30 tabs 03/05/23 benzonatate 100 mg capsule 100 mg PO Q4H PRN PRN COUGH #42 caps 03/07/23 guaifenesin 1,200 mg tablet, extended release 12 hr (Mucus Relief ER) 1,200 mg PO BID #0 tabs 03/07/23 prednisone 10 mg tablet 10 mg PO DAILY #50 tabs 03/07/23 Hospital Course Operations None Procedures EKG and - (Chest x-ray) Summary of Care Provided Minutes Spent on Discharge: 36 Hospital Course: Mr. Purcell is a 67-year-old white male with a history of severe COPD and chronic hypoxic respiratory failure who is supposed to be on 7 L [id number] at home per his prescription for supplemental oxygen but wears only 4 to 5 L at home who presented to the emergency department at [facility] early on the a.m. of 03/05/2023 with worsening shortness of breath. The patient reported he had gotten worse over the last 24 hours prior to presentation. He complained of exertional dyspnea and rhinorrhea but no significant cough or fevers. He did have some substernal pleuritic chest discomfort and chills. He was not sure if he had any recent ill contacts. He lives alone. He does follow with pulmonary medicine and sees Dr. Hughes. He has an appointment to see the nurse practitioner in his office this 03/09/2023. Upon presentation his vital signs were unremarkable other than hypoxia on his baseline oxygen so he was transition to BiPAP temporarily but was able to be weaned fairly quickly to nasal cannula at 6 L. Chest x-ray showed possible bibasilar pneumonia and he was admitted to the medical floor and placed on Rocephin and azithromycin. He did not have a white count or left shift on presentation and no significant cough. He was also placed on scheduled nebulizers, IV steroids, aggressive pulmonary toilet, Mucinex, incentive spirometry and Acapella. His viral respiratory PCR was positive for rhinovirus and the diagnosis of acute exacerbation of COPD secondary to rhinovirus infection/pneumonia was made. We were able to discontinue his antibiotics. We were able to slowly able to wean his oxygen over time and at the time of discharge she was requiring 5 L at rest and 6 L with ambulation. As noted previously his prescription is for 7 L from his DME supplier however when I discussed this with him he states they do not know what they are talking about.. He also complained of significant nasal congestion throughout his hospitalization and indicated he uses Afrin on a regular basis at home. I discussed with him that it was likely due to his chronic use of Afrin that he has chronic congestion and recommended weaning himself off of this as he probably had rhinitis medicamentosa. He at that point proceeded to tell me that I did not know what I was talking about. He was seen by physical and Occupational Therapy and needed some minimal help with occupational therapy for activities of daily living. Physical therapy evaluated him on the day of discharge as well and they recommended ongoing physical therapy with home health at the time of discharge. He was able to ambulate 200 feet on the day of discharge maintaining oxygen saturations 89 to 91% utilizing contact-guard. Home health services were set up and he was able to be discharged home in stable condition on 03/07/2023 with home health. He has a follow-up appointment with his pulmonary medicine at 1:15 PM but when I evaluated him prior to discharge he stated he was not sure if he be able to make it because he was not sure if he be feeling well enough to drive. We did try to set up hospital transportation for him to assist him but he refused it saying he would find somebody to take him if he needed help. At the time of discharge she was actually on less than his baseline oxygen of 7 L [id number] per his prescription for supplemental oxygen and we advised him to use 6 L with exertion and 5 L at rest. He has a nebulizer machine at home which he is to continue using and we discharged him with a very slow prednisone taper. We also advised him to decrease his use of Afrin. He is to follow-up with his primary care physician within the next 2 weeks. Discharge diagnoses: Acute on chronic hypoxic respiratory failure Rhinovirus viral pneumonia Acute exacerbation of COPD Rhinitis medicamentosa Hypertension COPD Restless leg syndrome KARIN CAD Bipolar disorder Anxiety Depression BPH History of tobacco abuse Physical Exam Const alert, oriented x3, no apparent distress and average body habitus; Negative for healthy appearing Constitutional Narrative: Upper middle-aged, white male, sitting up in a chair at the bedside, on supplemental nasal cannula at 5 L, appears older than stated age, watching television, appears more comfortable today, nontoxic General Appearance: cooperative, comfortable, well kempt and well developed Orientation / Consciousness: awake, oriented to person, oriented to place and oriented to time Exam Limitations: no limitations HEENT normocephalic, head/scalp atraumatic, hearing grossly normal bilaterally and moist oral mucous membranes HEENT Narrative: Mallampati 2-3, no thrush, wearing nasal cannula in mouth-he states he always does this due to nasal congestion Eyes PERRL, EOMs intact bilaterally and conjunctivae normal Eyes Narrative: No scleral icterus Neck no lymphadenopathy, supple and no JVD Resp normal respiratory effort, no retractions, no use of accessory muscles and No clear to auscultation bilaterally Resp Narrative: Scattered end expiratory wheeze, no rhonchi Auscultation: wheezes; Negative for rales or rhonchi Cardio regular rate, regular rhythm, S1 normal heart sound, S2 normal heart sound, no murmurs, no rub, no gallops and no clicks GI normal to inspection, nondistended, normoactive bowel sounds, soft to palpation and non-tender Extremity no clubbing, cyanosis or edema Extremity Narrative: Pedal pulses are 2+ Skin no rashes or lesions noted, no wounds, skin turgor normal and no jaundice Neuro oriented x3, CN's II-XII intact bilaterally, moves all extremities and no focal motor deficits Neuro Narrative: Generalized weakness noted Speech: speech normal Psych Psych Narrative: Affect is flat, patient is somewhat argumentative during his exam and interview Weight / BMI Weight Weight: 68.7 kg Body Mass Index (BMI) 25.8 ABG / Lab / Microbiology Data 03/06/23 05:59 03/06/23 05:59 Microbiology: Microbiology 03/05/23 11:09 Sputum, Expectorated/Coughed Gram Stain - Final 03/05/23 11:09 Sputum, Expectorated/Coughed Respiratory Culture - Final Mixed normal respiratory matthew. No Streptococcus pneumoniae, beta-hemolytic Streptococcus or Staphylococcus aureus isolated. 03/05/23 00:45 Blood Culture (Wb) - Anticubital Left Blood Culture - Preliminary No growth in 48 hours. 03/05/23 00:40 Blood Culture (Wb) - Anticubital Right Blood Culture - Preliminary No growth in 48 hours. 03/05/23 05:56 Mucosa - Nasopharyngeal Respiratory Panel (PCR) - Final Rhinovirus 03/05/23 03:31 Urine, Random Legionella Antigen - Final 03/05/23 03:31 Urine, Random Streptococcus pneumoniae Antigen (M - Final D/C Instructions Discharge Diet: Low fat / Low cholesterol Discharge Activity: Return to Normal Activity Meaningful Use Info Meaningful Use Diagnoses (Choose all that apply): None applicable Discharge Plan Admission Admit Date/Time: 03/05/23 01:16 Primary Reason for Your Visit: Shortness of breath Attending Provider: Robyn Baca Primary Care Provider: Srinivasa Henao Consulting Providers: Cinthya Wilson; Mayra Perera Instructions Additional Instructions / Restrictions: 1. You were diagnosed with a COPD exacerbation secondary to a rhinovirus infection. This is a virus that causes the common cold. This affected you more severely due to your lung disease at baseline. Please complete the steroid taper and utilize your nebulizers at home 4 times a day after discharge. 2. Please keep your scheduled appointment with pulmonary medicine on 03/09/2023--> I did discuss this with Dr. Hughes 3. I would highly recommend not using Afrin on a regular basis as this is likely the etiology for your chronic nasal congestion as we discussed during her hospitalization 4. Your prescription is for 7 L nasal cannula [id number]. While you are hospitalized you needed 5 L at rest and 6 L with exertion. Please continue daily utilize the supplemental oxygen at these levels after discharge Discharge Orders/Prescriptions Prescriptions: New Mucus Relief ER 1,200 mg Tablet Extended Release 12hr 1,200 mg PO BID Qty: 0 0RF benzonatate 100 mg Capsule 100 mg PO Q4H PRN PRN (Reason: COUGH) Qty: 42 0RF prednisone 10 mg tablet 10 mg PO DAILY Qty: 50 0RF Rx Instructions: 4 tablets x 5 days, 3 tablets x 5 days, 2 tablets x 5 days, 1 tablet x 5 days Continued ciclopirox [Loprox (as olamine)] 0.77 % cream 1 applic TOPICAL BID PRN (Reason: atheletes foot) trazodone 50 mg tablet 50 mg PO QHS baclofen 10 mg tablet 10 mg PO BID ibuprofen 200 mg tablet 800 mg PO HS PRN (Reason: Pain) nicotine 14 mg/24 hr patch 24 hour 1 patch transdermal Q24H Qty: 28 3RF Dulera 100-5 mcg/actuation HFA aerosol inhaler 2 puff inhalation Q12H Qty: 13 6RF melatonin 10 mg tablet 10 mg PO HS PRN (Reason: Sleep) oxycodone-acetaminophen 1 TABLET tablet 1 tab PO 4X/DAY PRN (Reason: Pain) lorazepam 0.5 mg tablet 0.5 mg PO BID tamsulosin 0.4 MG capsule 0.4 mg PO BID aspirin 81 mg tablet,chewable 81 mg PO .QOD ropinirole 0.5 MG tablet 0.5 mg PO QHS docusate sodium 100 mg capsule 100 mg PO BID Patient Comments: TAKE 1 CAPSULE BY MOUTH TWICE DAILY NEEDED FOR CONSTIPATION. Combivent Respimat 20-100 mcg/actuation mist 1 puff INHALATION Q6H Qty: 3 3RF mometasone 50 mcg/actuation spray,non-aerosol 2 spray INTRANASAL DAILY Qty: 17 6RF potassium chloride 10 mEq tablet extended release 10 meq PO DAILY Qty: 30 11RF ipratropium-albuterol 0.5 mg-3 mg(2.5 mg base)/3 mL solution for nebulization 3 ml INHALATION .QID Qty: 180 5RF Rx Instructions: J44.9 COPD albuterol sulfate [ProAir HFA] 90 mcg/actuation HFA aerosol inhaler 2 puff INHALATION Q4H PRN (Reason: Sob &/Or Wheezing) Qty: 8.5 5RF montelukast 10 mg tablet 10 mg PO DAILY Qty: 90 3RF furosemide 20 mg tablet See Rx Instructions .ROUTE .COMPLEX Qty: 90 3RF Dose Instruction: TAKE ONE TABLET BY MOUTH DAILY Rx Instructions: TAKE ONE TABLET BY MOUTH DAILY guaifenesin 1,200 mg tablet extended release 12hr 1,200 mg PO Q12H Qty: 60 6RF benzonatate 200 mg capsule 200 mg PO TID PRN (Reason: Cough) Qty: 90 5RF roflumilast [Daliresp] 500 mcg tablet 500 mcg PO DAILY Qty: 30 11RF Referrals / Follow Up: Srinivasa Henao MD [Primary Care Provider] - Within 2 Weeks Savannah Sheth NP, [employer] [Med Staff - [facility] Practice [facility]] - See Referral Note (As scheduled for 03/09/2023) Disposition Disposition (needs filled in before D/C Order can be placed): Home Health Service Charges/Coding Visit Charges Inpatient E&M: 17458 Disch Hosp >30min
[2023-03-07] MEDS: oxyCODONE 5 MG Tablet PO (15:38)
[2023-03-07] MEDS: Benzonatate 100 MG Capsule PO (15:39)
--- NOTE | 2023-03-07 15:53 | CHAPLAIN ---
Type of Pastoral Visit _x__ Initial Visit ___ Follow-up Visit ___ On-call Visit ___ General Patient Visit ___ Spiritual Assessment ___ Family Conference ___ Bereavement ___ Rapid Response ___ Code Blue ___ Other (describe below) Pastoral Care Referral From ___ Patient ___ Family ___ Nurse ___ Physician ___ Car Seat Coverer ___ Sales Associate Fishing _x__ Other (describe below) Sacrament/Intervention _x__ Active listening ___ Anointing ___ Yazidi ___ Bereavement ___ Communion ___ Leticia exploration ___ ___ Life review _x__ Prayer ___ Reconciliation ___ Sacrament of Sick _x__ Supportive presence ___ Wedding ___ Other (describe below) Pastoral Comments patient referral came from a friend requesting support; pt met and introduced to role and support offered by spiritual care; pt welcomes the same and states that a prayer would be helpful to him; pt had just come from bathroom and was sob by time he returned to chair; stayed with patient and waited as pt regains breathe; presence and affirmation of care and support given; asked pt about support at home, availability for his needs, etc.
== END 2023-03-07 17:25 | disposition home health service (06) | DRG 193 ==
LOC: ED 03-05 01:20 → PCU 03-05 01:36
PROVIDERS: Admitting Provider Family Medicine; Emergency Provider Emergency Medicine; PCP Internal Medicine; Visit Provider Internal Medicine
DX: J12.89 Other viral pneumonia (principal); J96.21 Acute and chronic respiratory failure with hypoxia; J44.1 Chronic obstructive pulmonary disease with (acute) exacerbation; J44.0 Chronic obstructive pulmonary disease with (acute) lower respiratory infection; Z99.81 Dependence on supplemental oxygen; F31.9 Bipolar disorder, unspecified; I10 Essential (primary) hypertension; G25.81 Restless legs syndrome; G47.33 Obstructive sleep apnea (adult) (pediatric); I25.10 Atherosclerotic heart disease of native coronary artery without angina pectoris; J31.0 Chronic rhinitis; F41.9 Anxiety disorder, unspecified; T48.5X5A Adverse effect of other anti-common-cold drugs, initial encounter; N40.0 Benign prostatic hyperplasia without lower urinary tract symptoms; Z66 Do not resuscitate; Z79.01 Long term (current) use of anticoagulants; Z79.899 Other long term (current) drug therapy; Z87.891 Personal history of nicotine dependence
CPT/HCPCS: 36415; 71045; 80048; 80053; 83605; 83735; 83880; 84100; 85025; 85610; 85730; 87040; 87070; 87205; 87449; 87633; 93005; 94002; 94640; 94668; 97162; 97166; 97802; 99285; 99406; J7050; A4216; J0696